=== PATIENT | female | born 1940 | race Caucasian/White ===

== ENCOUNTER 2017-10-07 14:09 | Emergency (ER) | payer MEDICARE, SELFPAY ==
[2017-10-07 14:12] VITALS: BP 208/102; BP 209/113; PULSE 85; PULSE 91; RESP 18; TEMP 36.8; O2SAT 100; O2SAT 98; BMI 20.1
--- NOTE | 2017-10-07 14:36 | EKG12_ITS ---
Test Reason : HTN/CP Blood Pressure : / mmHG Vent. Rate : 089 BPM Atrial Rate : 089 BPM P-R Int : 144 ms QRS Dur : 072 ms QT Int : 346 ms P-R-T Axes : 067 -25 035 degrees QTc Int : 420 ms Sinus rhythm with occasional Premature ventricular complexes Inferior infarct , age undetermined Abnormal ECG Confirmed by IRMA LION, JEREMY ([id number]), movie editor BRIAN CORTES ([id number]) on 10/08/2017 2:33:52 PM Referred By: MARTINEZ/JAMESON Confirmed By:JEREMY SOLIS MD
--- NOTE | 2017-10-07 14:36 | RAD_ITS ---
STUDY: X-RAY CHEST REASON FOR EXAM: Female, 76 years old. Chest pain. TECHNIQUE: Single AP portable view of the chest. COMPARISON: Comparison is made with prior study dated June 18, 2017. FINDINGS: EKG electrodes are seen. Hyperinflation. The lungs are clear. There is no demonstrated pleural abnormality. Normal size heart. Normal mediastinum and alba. Normal visualized pulmonary arteries. There is atherosclerotic tortuosity of the aortic arch and descending thoracic aorta. Normal visualized thoracic spine. Normal visualized ribs, clavicles, and shoulders. There is no demonstrated abnormality of the visualized soft tissue structures of the upper abdomen. RAD/Chest 1 View (Portable) IMPRESSION: Normal x-ray examination of the chest. Electronically Signed: Mor Hudson MD at 15:09 EST Tel [phone], Service support ,
[2017-10-07 14:46] LABS: Absolute Lymphocyte Count 3.71 X10^3/ul (0.83-4.51); Absolute Neutrophil Count 3.3 X10^3/uL (2.0-7.7); Basophil# 0.02 X10^3/uL; Basophil% 0.3 % (0-1); Eosinophil# 0.23 X10^3/uL; Hematocrit 40.4 % (37-47); Hemoglobin 12.8 g/dl (12.0-15.0); Lymphocyte # 3.71 X10^3/ul (4.0); Lymphocyte % 48.9 % (19-41); Mean Corp Hgb Conc 31.7 g/gl (32-36); Mean Corpuscular Hgb 29.4 pg (27.0-32.0); Mean Corpuscular Volume 92.7 fL (81-99); Mean Platelet Vol. 9.6 fl (6.2-12.0); Monocyte# 0.35 X10^3/uL; Monocyte% 4.6 % (0-10); Neutrophil # 3.26 X10^3/uL (2.7-7.7); Neutrophil % 42.9 % (47-70); Platelet Count 369 K/mm3 (150-450); RBC Distribution Width CV 13.3 % (11.6-14.6); RBC Distribution Width SD 45.2 fl (35.1-43.9); Red Blood Count 4.36 M/mm3 (4.2-5.4); White Blood Count 7.6 K/mm3 (4.4-11.0)
[2017-10-07 14:54] LABS: POSITIVE COUNT NO; POSITIVE DIFFERENTIAL NO; POSITIVE MORPHOLOGY NO
[2017-10-07] MEDS: Aspirin 81 MG TAB.CHEW 324 MG PO (15:00)
[2017-10-07 15:02] LABS: Anion Gap 6 (5-15); BUN 15 mg/dL (7-18); Chloride 104 mmol/L (98-107); Creatinine, Serum 0.79 mg/dL (0.55-1.02); EST Glomerular Filtration Rate 75 mL/min (>60); Est Glom Filt Rate - Afr Amer 91 mL/min (>60); Estimated Creatinine Clearance 41.56 ml/min; Glucose 92 mg/dL (74-106); Potassium 4.3 mmol/L (3.5-5.1); Sodium Level 139 mmol/L (136-145)
[2017-10-07] MEDS: Triamterene 37.5MG/Hctz 25MG Capsule 1 CAP PO (15:09)
[2017-10-07] MEDS: Isosorbide Mononitrate 30 MG Tablet PO (15:09)
[2017-10-07] MEDS: Metoprolol Tartrate 100 MG Tablet PO (15:10)
[2017-10-07 16:22] VITALS: BP 142/90; PULSE 73; RESP 18; O2SAT 97
[2017-10-07 17:36] VITALS: BP 128/79; PULSE 71; RESP 18; O2SAT 96
--- NOTE | 2017-10-07 18:36 | ED.VISSUMM ---
- ER Visit Summary Date of Service: 10/07/17 Chief Complaint: Hypertension, chest pain History of Present Illness: The patient is a 76 F presenting with hypertension. Patient states she was getting a consultation for colonoscopy today. It was noted that her blood pressure was high. She states she was rushing around this morning to get to her appointment and did not take her daily home medications. When asked if she had chest pain she did recall that she had 20 minutes of chest pain earlier this morning. She states it was not enough to take a nitro. She did not feel it was significant until she was told her blood pressure was high and she was questioned further about this. She has a history of stent placement June 2017. Her oyster buyer is Dr. Jordan and she has an appointment this Saturday. She has been chest pain-free throughout the rest of the day. She denies shortness of breath, nausea, vomiting, diaphoresis. Denies other complaints. Physical Examination: Vitals are stable. Blood pressure 209/113. Patient is afebrile. Alert no acute distress. HEENT exam is unremarkable. Neck is supple. Lungs are clear and equal bilaterally. Heart is regular rate and rhythm. Abdomen is soft nontender nondistended. Extremities are unremarkable. Skin is warm and dry. No focal neurologic deficit. Remainder of exam is unremarkable. Emergency Department Course and Treatment: EKG is sinus rate of 89 with no acute ischemic changes. Chest x-ray shows no acute process. Patient was given her home doses of her blood pressure medications. Repeat blood pressure is 145/90. Patient remains pain-free in the emergency department. Discussed with Dr. Jordan. We will obtain a delta troponin. As long as this is negative she will be discharged home to follow-up at her scheduled appointment on Saturday. She is advised return to ED for any worsening complaints. Disposition: Discharge home Impression: Hypertension, chest pain This note was generated with [employer] dictation software. It may contain incorrect words, spelling, and punctuation that were not noted in review of the chart prior to signing ED Disposition - Plan for ED Patient: Chief Complaint: Chest Pain Referrals: Milton Kang [Primary Care Provider] -
--- NOTE | 2017-10-07 18:41 | ED.DCSUM_ITS ---
- ER Visit Summary Date of Service: 10/07/17 Chief Complaint: Hypertension, chest pain History of Present Illness: The patient is a 76 F presenting with hypertension. Patient states she was getting a consultation for colonoscopy today. It was noted that her blood pressure was high. She states she was rushing around this morning to get to her appointment and did not take her daily home medications. When asked if she had chest pain she did recall that she had 20 minutes of chest pain earlier this morning. She states it was not enough to take a nitro. She did not feel it was significant until she was told her blood pressure was high and she was questioned further about this. She has a history of stent placement June 2017. Her rectification printer is Dr. Jordan and she has an appointment this Saturday. She has been chest pain-free throughout the rest of the day. She denies shortness of breath, nausea, vomiting, diaphoresis. Denies other complaints. Physical Examination: Vitals are stable. Blood pressure 209/113. Patient is afebrile. Alert no acute distress. HEENT exam is unremarkable. Neck is supple. Lungs are clear and equal bilaterally. Heart is regular rate and rhythm. Abdomen is soft nontender nondistended. Extremities are unremarkable. Skin is warm and dry. No focal neurologic deficit. Remainder of exam is unremarkable. Emergency Department Course and Treatment: EKG is sinus rate of 89 with no acute ischemic changes. Chest x-ray shows no acute process. Patient was given her home doses of her blood pressure medications. Repeat blood pressure is 145/ 90. Patient remains pain-free in the emergency department. Discussed with Dr. Jordan. We will obtain a delta troponin. As long as this is negative she will be discharged home to follow-up at her scheduled appointment on Saturday. She is advised return to ED for any worsening complaints. Disposition: Discharge home Impression: Hypertension, chest pain This note was generated with [employer] dictation software. It may contain incorrect words, spelling, and punctuation that were not noted in review of the chart prior to signing ED Disposition - Plan for ED Patient: Chief Complaint: Chest Pain Referrals: Milton Kang [Primary Care Provider] -
--- NOTE | 2017-10-07 18:41 | ED.DEP ---
ED Disposition - Plan for ED Patient: Chief Complaint: Chest Pain Instructions: ED Chest Pain Atypical Unkn Cause Referrals: Milton Kang [Primary Care Provider] - Skyler Jordan MD [STAFF PHYSICIAN] -
[2017-10-07 19:01] VITALS: BP 125/79; PULSE 61; RESP 16; O2SAT 97
== END 2017-10-07 19:02 | disposition home or self-care (01) ==
PROVIDERS: Emergency Provider Emergency Medicine; Family Provider Family Medicine; PCP Family Medicine
DX: I10 Essential (primary) hypertension (principal); R07.9 Chest pain, unspecified; Z95.5 Presence of coronary angioplasty implant and graft; E78.00 Pure hypercholesterolemia, unspecified; K21.9 Gastro-esophageal reflux disease without esophagitis; Z79.82 Long term (current) use of aspirin; Z79.01 Long term (current) use of anticoagulants; Z79.899 Other long term (current) drug therapy
CPT/HCPCS: 71045; 80048; 84484; 85025; 93005; 99285; A4216

== ENCOUNTER 2017-11-17 11:57 | Observation (INO) | payer MEDICARE, SELFPAY ==
[2017-11-17] VITALS (13 sets, daily range): BP systolic 110–188; BP diastolic 73–86; PULSE 69–116; RESP 16–30; TEMP 36.5–37.4; O2SAT 93–99; BMI 20.1
--- NOTE | 2017-11-17 12:06 | EKG12_ITS ---
Test Reason : SOB Blood Pressure : / mmHG Vent. Rate : 099 BPM Atrial Rate : 099 BPM P-R Int : 144 ms QRS Dur : 072 ms QT Int : 342 ms P-R-T Axes : 070 -32 057 degrees QTc Int : 438 ms Sinus rhythm with frequent Premature ventricular complexes Right atrial enlargement Left axis deviation Inferior infarct , cannot be excluded Abnormal ECG Confirmed by MAYKEL LION, JOCELYNE ([id number]), editor continuity and script BRIAN CORTES ([id number]) on 11/19/2017 2:51:03 PM Referred By: BLANK Confirmed By:JOCELYNE BRAR MD
--- NOTE | 2017-11-17 12:19 | ED.VISSUMM ---
- ER Visit Summary Date of Service: 11/17/17 Chief Complaint: [] Cough and low-grade fevers for a week, chest pain began yesterday intermittent History of Present Illness: The patient is a 77 F [] history of 3 cardiac stents hypertension she basically reports had a cough for over a week runny nose low-grade fevers, did not have flu vaccination, her has similar URI symptoms, in addition yesterday she developed chest pressure intermittently feels somewhat like her angina she is scheduled to see Dr. Jordan her customer program specialist next week she went to an urgent care center and was sent to the emergency department she is currently just complaining of the cough Physical Examination: [] Vitals are within normal range her head exam shows some rhinorrhea the neck is supple the lungs reveal rhonchi to bases the heart tones are unremarkable abdomen soft nontender upper lower extremities unremarkable she is awake moving all 4 extremities she is in no distress Test Results: [] Emergency Department Course and Treatment: [] EKG labs screening studies are all generally unremarkable including the flu screen that was negative given her symptoms her age history of CAD her complaints of chest pressure we spoke with the hospitalist service, they spoke with her customer program specialist spoke with the patient and the plan will be to admit for further management Treatment Plan: [] Disposition: [] Admit stable Impression: [] Chest pain history of cardiac stents, URI type illness This note was generated with [employer] dictation software. It may contain incorrect words, spelling, and punctuation that were not noted in review of the chart prior to signing ED Disposition - Plan for ED Patient: Chief Complaint: Shortness of Breath Referrals: Milton Kang [Primary Care Provider] -
--- NOTE | 2017-11-17 12:27 | RAD_ITS ---
STUDY: X-RAY CHEST REASON FOR EXAM: Female, 77 years old. Shortness of breath TECHNIQUE: Single AP portable view of the chest. COMPARISON: October 07, 2017 FINDINGS: The lungs are again hyperexpanded. There is new mild bibasilar atelectasis. There is no demonstrated pleural abnormality. Normal size heart. Normal mediastinum and alba. Normal visualized pulmonary arteries. Normal visualized aortic arch and descending thoracic aorta. Normal visualized thoracic spine. Normal visualized ribs, clavicles, and shoulders. There is no demonstrated abnormality of the visualized soft tissue structures of the upper abdomen. RAD/Chest 1 View IMPRESSION: There is new mild bibasilar atelectasis. Electronically Signed: Theresa Rangel MD at 12:59 EDT , Service support ,
[2017-11-17] MEDS: Ipratropium/Albuterol Sulfate 3 ML AMPUL.NEB INHALATION (12:36)
[2017-11-17 12:59] LABS: Anion Gap 6 (5-15); BUN 15 mg/dL (7-18); BUN/Creat Ratio 17.5 RATIO (10-20); Calcium,Total 8.9 mg/dL (8.5-10.1); Chloride 101 mmol/L (98-107); Creatinine, Serum 0.86 mg/dL (0.55-1.02); EST Glomerular Filtration Rate 69 mL/min (>60); Est Glom Filt Rate - Afr Amer 83 mL/min (>60); Estimated Creatinine Clearance 47.07 ml/min; Glucose 112 mg/dL (74-106); Sodium Level 135 mmol/L (136-145)
[2017-11-17 13:21] LABS: Bacteria 0 SEEN /hpf (None Seen); Color, Urine Yellow (Yellow); Glucose, Dipstick Normal (Normal); Ketone-Dipstick Negative (Negative); Leukocyte Esterase-Dipstick 25 /ul (Negative); Mucous, Urine 0 SEEN /hpf (<or=2+); Nitrite-Dipstick Negative (Negative); Occult Blood-Urine 250 /ul (Negative); Protein-Dipstick 500 mg/dl (Negative); Specific Gravity, Urine 1.015 (1.002-1.030); Squamous Epithelial Cells - UA 0 SEEN /hpf (5-10); Urine Bilirubin Dipstick Negative (Negative); Urine Clarity Clear (Clear); Urine Urobilinogen Normal (Normal)
[2017-11-17 13:30] LABS: Red Blood Cells-Urine 25-50 SEEN /hpf (0-5); White Blood Cells 0-5 SEEN /hpf (0-5)
[2017-11-17 13:32] LABS: Absolute Lymphocyte Count 1.84 X10^3/ul (0.83-4.51); BNP,B-Type NATRIURETIC PEPTIDE 12.2 pg/mL (0-100); Basophil# 0.02 X10^3/uL; Basophil% 0.3 % (0-1); Eosinophil# 0.03 X10^3/uL; Eosinophils% 0.5 % (0-5); Hematocrit 41.1 % (37-47); Hemoglobin 13.4 g/dl (12.0-15.0); Lymphocyte # 1.84 X10^3/ul (4.0); Lymphocyte % 29.7 % (19-41); Mean Corp Hgb Conc 32.6 g/gl (32-36); Mean Corpuscular Volume 91.9 fL (81-99); Mean Platelet Vol. 10.1 fl (6.2-12.0); Monocyte# 0.29 X10^3/uL; Monocyte% 4.7 % (0-10); Neutrophil % 64.6 % (47-70); POSITIVE COUNT NO; POSITIVE DIFFERENTIAL NO; POSITIVE MORPHOLOGY NO; Platelet Count 303 K/mm3 (150-450); RBC Distribution Width CV 13.2 % (11.6-14.6); RBC Distribution Width SD 43.7 fl (35.1-43.9); Red Blood Count 4.47 M/mm3 (4.2-5.4); White Blood Count 6.2 K/mm3 (4.4-11.0)
--- NOTE | 2017-11-17 15:06 | PCM.HP.STD ---
Problem List (1) Anemia Status: Chronic (2) CAD (coronary artery disease), [place] coronary artery Status: Chronic (3) Essential (primary) hypertension Status: Chronic (4) History of lumbar fusion Status: Chronic (5) Hyperlipemia, mixed Status: Chronic (6) jail use of drug Status: Chronic Comment: Antihyperlipidemic (7) Old myocardial infarction Status: Chronic (8) Other chest pain Status: Chronic (9) Palpitations Status: Chronic (10) Premature ventricular contractions Status: Chronic (11) S/P ORIF (open reduction internal fixation) fracture Status: Chronic (12) S/P coronary artery stent placement Status: Chronic Comment: RE to RCA in [place] 07/2016; RE to diagonal 1 and LAD in 06/2017; (13) SVT (supraventricular tachycardia) Status: Chronic (14) H/O tubal ligation Status: Resolved History of Present Illness Date of Admission: 11/17/17 Chief Complaint: Chest pain, shortness of breath, general malaise. The patient is a 77 year old F who presents to the emergency room with intermittent chest pain, shortness of breath, general malaise. Patient states she has had cough, low-grade fever, shortness of breath and generally feeling unwell for the past week. Over the past 2 days, she complains of intermittent chest pressure on the left side of her chest. She denies pain radiation. She denies associated symptoms of dizziness, diaphoresis. She states shortness of breath is not associated with the chest pain. Chest pain not associated with exertion. Patient states her has had similar upper respiratory symptoms over the past week. Patient follows with Dr. Jordan. She has a history of CAD status post PCI, most recent stents in June 2017. Her other past medical history includes hypertension, hyperlipidemia, anemia, GERD. 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) Antihyperlipidemic Palpitations (Chronic) Other chest pain (Chronic) Premature ventricular contractions (Chronic) SVT (supraventricular tachycardia) (Chronic) Old myocardial infarction (Chronic) Anemia (Chronic) Hyperlipemia, mixed (Chronic) Essential (primary) hypertension (Chronic) S/P coronary artery stent placement (Chronic) RE to RCA in [place] 07/2016; RE to diagonal 1 and LAD in 06/2017; CAD (coronary artery disease), [place] coronary artery (Chronic) Allergies amoxicillin Allergy (Verified 11/17/17 12:02) projectile vomiting diazepam [From Valium] Allergy (Verified 11/17/17 12:02) Unknown gabapentin Allergy (Verified 11/17/17 12:02) Unknown promethazine Allergy (Verified 11/17/17 12:02) Unknown zolpidem Allergy (Verified 11/17/17 12:02) Unknown morphine Adverse Reaction (Severe, Verified 11/17/17 12:02) Heart stopped Home Medications: Ambulatory Orders Medication Instructions Recorded Clopidogrel Bisulfate [Plavix] 75 mg PO DAILY 06/20/17 Metoprolol Succinate 100 mg PO DAILY 06/20/17 Pantoprazole Sodium [Protonix] 40 mg PO DAILY 06/20/17 Pramipexole Di-HCl [Mirapex] 2 tab PO QHS 06/20/17 Triamterene/Hydrochlorothiazid 1 ea PO DAILY 06/20/17 [Triamterene-Hctz 37.5-25 mg Cp] Oxycodone [Oxyfast] 10 mg PO TID 06/21/17 amlodipine 10 mg tablet 10 mg PO QDAY 07/22/17 isosorbide mononitrate ER 30 mg 30 mg PO QDAY tab 10/11/17 tablet,extended release 24 hr Surgical History: - - back surgery lumbar fusion 2012, ORIF left hip 11/12/2016, varicose vein surgery 11/2010, hx of tubal ligation, hx of hysterectomy. Psychiatric History: No pertinent psych hx DIRECTOR OF RELIGIOUS ACTIVITIES History: No pertinent DIRECTOR OF RELIGIOUS ACTIVITIES history Smoking Status: Never smoker Alcohol: None Drugs: None - *Family History Maternal History Items: Heart Disease Paternal History Items: Heart Disease Review of Systems Constitutional: Reports: Fever, Malaise, Fatigue HEENT: Denies: Head Aches, Sinus Congestion, Sinus Drainage Cardiovascular: Reports: Chest Pressure. Denies: Edema, Light Headedness, Palpitations, Syncope Respiratory: Reports: Cough, Shortness of Breath. Denies: Sputum production, Wheezing Gastrointestinal: Denies: Abdominal Pain, Nausea, Vomiting Genitourinary: Denies: Dysuria Musculoskeletal: Denies: Joint Pain, Joint Tenderness Skin: Denies: Rash, Wounds Neurological: Denies: Numbness, Tingling, Focal weakness Psychiatric: Denies: Anxiety, Depression, Homicidal Ideations, Suicidal Ideations Hematologic/ Lymphatic: Denies: Easy Bruising, Easy Bleeding VTE Information - Inpt Only VTE Present on Admission: No VTE Mechan Device Prophylaxis: None VTE Pharm Prophylaxis ordered?: Yes - Physical Exam General: Alert, Oriented x3, Cooperative, No apparent distress HEENT: Atraumatic, PERRLA, EOMI, Normocephalic Neck: Supple, No JVD, Negative Carotid Bruits Lungs: Clear to auscultation, Diminished Cardiovascular: Regular Rhythm, Normal S1, Normal S2, No murmurs, Tachycardic Abdomen: Bowel Sounds Present, Soft, Non Tender, Non-Distended Extremities: No clubbing, No cyanosis, No edema, Capillary Refill Less than 3 Seconds Skin: No rashes, No breakdown Musculoskeletal: No Tenderness to Palpation of Joints or Extremities Neurological: Cranial nerves II-XII grossly intact, Neuro grossly intact Psych/Mental Status: Normal Affect, Appropriate Vital Signs Temp Pulse Resp BP Pulse Ox 99.3 F H 103 H 17 150/74 H 96 11/17/17 13:14 11/17/17 13:14 11/17/17 13:14 11/17/17 13:14 11/17/17 13:14 Oxygen Delivery Method Room Air Weight: 54.431 kg Body Mass Index (BMI) 20.0 Microbiology Past 72 Hours 11/17/17 12:25 Influenza Types A,B Direct FA (RIGOBERTO) - Final Mucosa - Nasopharyngeal Laboratory Tests Past 24 Hrs 11/17/17 11/17/17 11/17/17 12:25 12:55 12:55 WBC 6.2 RBC 4.47 Hgb 13.4 Hct 41.1 MCV 91.9 MCH 30.0 MCHC 32.6 RDW 13.2 RDW Differential 43.7 Plt Count 303 MPV 10.1 Immature Gran % (Auto) 0.200 Neut % (Auto) 64.6 Lymph % (Auto) 29.7 [place] % (Auto) 4.7 Eos % (Auto) 0.5 Baso % (Auto) 0.3 Absolute Neuts (auto) 4.0 Absolute Lymphs (auto) 1.84 Total Counted Not Reportable Sodium 135 L Potassium 4.0 Chloride 101 Carbon Dioxide 28.0 Anion Gap 6 BUN 15 Creatinine 0.86 Estim Creat Clear Calc 47.07 Est GFR (MDRD) Af Amer 83 Est GFR (MDRD) Non-Af 69 BUN/Creatinine Ratio 17.5 Glucose 112 H Calcium 8.9 Troponin I < 0.02 B-Natriuretic Peptide 12.2 Urine Color Urine Clarity Urine pH Ur Specific [place] Urine Protein Urine Glucose (UA) Urine Ketones Urine Occult Blood Urine Nitrite Urine Bilirubin Urine Urobilinogen Ur Leukocyte Esterase Urine RBC Urine WBC Ur Squamous Epith Cells Urine Bacteria Urine Mucus 11/17/17 13:10 WBC RBC Hgb Hct MCV MCH MCHC RDW RDW Differential Plt Count MPV Immature Gran % (Auto) Neut % (Auto) Lymph % (Auto) [place] % (Auto) Eos % (Auto) Baso % (Auto) Absolute Neuts (auto) Absolute Lymphs (auto) Total Counted Sodium Potassium Chloride Carbon Dioxide Anion Gap BUN Creatinine Estim Creat Clear Calc Est GFR (MDRD) Af Amer Est GFR (MDRD) Non-Af BUN/Creatinine Ratio Glucose Calcium Troponin I B-Natriuretic Peptide Urine Color Yellow Urine Clarity Clear Urine pH 5.0 Ur Specific [place] 1.015 Urine Protein 500 H Urine Glucose (UA) Normal Urine Ketones Negative Urine Occult Blood 250 H Urine Nitrite Negative Urine Bilirubin Negative Urine Urobilinogen Normal Ur Leukocyte Esterase 25 H Urine RBC 25-50 SEEN Urine WBC 0-5 SEEN Ur Squamous Epith Cells 0 SEEN Urine Bacteria 0 SEEN Urine Mucus 0 SEEN Assessment/Plan 1. Chest pressure-echocardiogram from September 2016 showed an EF of 60-65%. Patient recently had office visit with cardiology 10/11/2017 with complaints of intermittent chest pain and shortness of breath. BNP 12. Troponin negative. EKG in emergency room sinus rhythm with PVCs. No evidence of ischemia. Chest x-ray on admission shows mild bibasilar atelectasis. Trend enzymes. Patient was discussed with Dr. Jordan and plan is to undergo stress test tomorrow morning. 2. Cough, fever, shortness of breath-negative for influenza. Suspected viral syndrome. Patient has been had similar upper respiratory symptoms over the past week. Obtain respiratory panel. Albuterol aerosol as needed for shortness of breath. Tylenol as needed for fever. 3. CAD-history of RCA stent in July 2016 with additional stent placement June 2017 to proximal diagonal 1 and mid LAD. Continue Plavix, metoprolol, Imdur. 4. Hypertension-elevated on admission. Continue home regimen of amlodipine, Imdur, metoprolol, triamterene/HCTZ. Continue to monitor. 5. Hyperlipidemia-not on statin. Obtain fasting lipid panel. 6. GERD-continue PPI. DVT prophylaxis-Lovenox SC This patient was seen by NOAH Montes under the supervision of Dr. Isaacs.
--- NOTE | 2017-11-17 15:25 | HP.PCM_ITS ---
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 use of drug Status: Chronic Comment: Antihyperlipidemic (7) Old myocardial infarction Status: Chronic (8) Other chest pain Status: Chronic (9) Palpitations Status: Chronic (10) Premature ventricular contractions Status: Chronic (11) S/P ORIF (open reduction internal fixation) fracture Status: Chronic (12) S/P coronary artery stent placement Status: Chronic Comment: RE to RCA in [place] 07/2016; RE to diagonal 1 and LAD in 06/2017; (13) SVT (supraventricular tachycardia) Status: Chronic (14) H/O tubal ligation Status: Resolved History of Present Illness Date of Admission: 11/17/17 Chief Complaint: Chest pain, shortness of breath, general malaise. The patient is a 77 year old F who presents to the emergency room with intermittent chest pain, shortness of breath, general malaise. Patient states she has had cough, low-grade fever, shortness of breath and generally feeling unwell for the past week. Over the past 2 days, she complains of intermittent chest pressure on the left side of her chest. She denies pain radiation. She denies associated symptoms of dizziness, diaphoresis. She states shortness of breath is not associated with the chest pain. Chest pain not associated with exertion. Patient states her has had similar upper respiratory symptoms over the past week. Patient follows with Dr. Jordan. She has a history of CAD status post PCI, most recent stents in June 2017. Her other past medical history includes hypertension, hyperlipidemia, anemia, GERD. 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) Antihyperlipidemic Palpitations (Chronic) Other chest pain (Chronic) Premature ventricular contractions (Chronic) SVT (supraventricular tachycardia) (Chronic) Old myocardial infarction (Chronic) Anemia (Chronic) Hyperlipemia, mixed (Chronic) Essential (primary) hypertension (Chronic) S/P coronary artery stent placement (Chronic) RE to RCA in [place] 07/2016; RE to diagonal 1 and LAD in 06/2017; CAD (coronary artery disease), [place] coronary artery (Chronic) Allergies amoxicillin Allergy (Verified 11/17/17 12:02) projectile vomiting diazepam [From Valium] Allergy (Verified 11/17/17 12:02) Unknown gabapentin Allergy (Verified 11/17/17 12:02) Unknown promethazine Allergy (Verified 11/17/17 12:02) Unknown zolpidem Allergy (Verified 11/17/17 12:02) Unknown morphine Adverse Reaction (Severe, Verified 11/17/17 12:02) Heart stopped Home Medications: Ambulatory Orders Medication Instructions Recorded Clopidogrel Bisulfate [Plavix] 75 mg PO DAILY 06/20/17 Metoprolol Succinate 100 mg PO DAILY 06/20/17 Pantoprazole Sodium [Protonix] 40 mg PO DAILY 06/20/17 Pramipexole Di-HCl [Mirapex] 2 tab PO QHS 06/20/17 Triamterene/Hydrochlorothiazid 1 ea PO DAILY 06/20/17 [Triamterene-Hctz 37.5-25 mg Cp] Oxycodone [Oxyfast] 10 mg PO TID 06/21/17 amlodipine 10 mg tablet 10 mg PO QDAY 07/22/17 isosorbide mononitrate ER 30 mg 30 mg PO QDAY tab 10/11/17 tablet,extended release 24 hr Surgical History: - - back surgery lumbar fusion 2012, ORIF left hip 11/12/2016 , varicose vein surgery 11/2010, hx of tubal ligation, hx of hysterectomy. 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 Denies: Edema, Light Headedness, Palpitations, Syncope Respiratory: Reports: Cough, Shortness of Breath. Denies: Sputum production, Wheezing Gastrointestinal: Denies: Abdominal Pain, Nausea, Vomiting Genitourinary: Denies: Dysuria Musculoskeletal: Denies: Joint Pain, Joint Tenderness Skin: Denies: Rash, Wounds Neurological: Denies: Numbness, Tingling, Focal weakness Psychiatric: Denies: Anxiety, Depression, Homicidal Ideations, Suicidal Ideations Hematologic/ Lymphatic: Denies: Easy Bruising, Easy Bleeding VTE Information - Inpt Only VTE Present on Admission: No VTE Mechan Device Prophylaxis: None VTE Pharm Prophylaxis ordered?: Yes - Physical Exam General: Alert, Oriented x3, Cooperative, No apparent distress HEENT: Atraumatic, PERRLA, EOMI, Normocephalic Neck: Supple, No JVD, Negative Carotid Bruits Lungs: Clear to auscultation, Diminished Cardiovascular: Regular Rhythm, Normal S1, Normal S2, No murmurs, Tachycardic Abdomen: Bowel Sounds Present, Soft, Non Tender, Non-Distended Extremities: No clubbing, No cyanosis, No edema, Capillary Refill Less than 3 Seconds Skin: No rashes, No breakdown Musculoskeletal: No Tenderness to Palpation of Joints or Extremities Neurological: Cranial nerves II-XII grossly intact, Neuro grossly intact Psych/Mental Status: Normal Affect, Appropriate Vital Signs Temp Pulse Resp BP Pulse Ox 99.3 F H 103 H 17 150/74 H 96 11/17/17 13:14 11/17/17 13:14 11/17/17 13:14 11/17/17 13:14 11/17/17 13:14 Oxygen Delivery Method Room Air Weight: 54.431 kg Body Mass Index (BMI) 20.0 Microbiology Past 72 Hours 11/17/17 12:25 Influenza Types A,B Direct FA (RIGOBERTO) - Final Mucosa - Nasopharyngeal Laboratory Tests Past 24 Hrs 11/17/17 11/17/17 11/17/17 12:25 12:55 12:55 WBC 6.2 RBC 4.47 Hgb 13.4 Hct 41.1 MCV 91.9 MCH 30.0 MCHC 32.6 RDW 13.2 RDW Differential 43.7 Plt Count 303 MPV 10.1 Immature Gran % (Auto) 0.200 Neut % (Auto) 64.6 Lymph % (Auto) 29.7 [place] % (Auto) 4.7 Eos % (Auto) 0.5 Baso % (Auto) 0.3 Absolute Neuts (auto) 4.0 Absolute Lymphs (auto) 1.84 Total Counted Not Reportable Sodium 135 L Potassium 4.0 Chloride 101 Carbon Dioxide 28.0 Anion Gap 6 BUN 15 Creatinine 0.86 Estim Creat Clear Calc 47.07 Est GFR (MDRD) Af Amer 83 Est GFR (MDRD) Non-Af 69 BUN/Creatinine Ratio 17.5 Glucose 112 H Calcium 8.9 Troponin I < 0.02 B-Natriuretic Peptide 12.2 Urine Color Urine Clarity Urine pH Ur Specific [place] Urine Protein Urine Glucose (UA) Urine Ketones Urine Occult Blood Urine Nitrite Urine Bilirubin Urine Urobilinogen Ur Leukocyte Esterase Urine RBC Urine WBC Ur Squamous Epith Cells Urine Bacteria Urine Mucus 11/17/17 13:10 WBC RBC Hgb Hct MCV MCH MCHC RDW RDW Differential Plt Count MPV Immature Gran % (Auto) Neut % (Auto) Lymph % (Auto) [place] % (Auto) Eos % (Auto) Baso % (Auto) Absolute Neuts (auto) Absolute Lymphs (auto) Total Counted Sodium Potassium Chloride Carbon Dioxide Anion Gap BUN Creatinine Estim Creat Clear Calc Est GFR (MDRD) Af Amer Est GFR (MDRD) Non-Af BUN/Creatinine Ratio Glucose Calcium Troponin I B-Natriuretic Peptide Urine Color Yellow Urine Clarity Clear Urine pH 5.0 Ur Specific [place] 1.015 Urine Protein 500 H Urine Glucose (UA) Normal Urine Ketones Negative Urine Occult Blood 250 H Urine Nitrite Negative Urine Bilirubin Negative Urine Urobilinogen Normal Ur Leukocyte Esterase 25 H Urine RBC 25-50 SEEN Urine WBC 0-5 SEEN Ur Squamous Epith Cells 0 SEEN Urine Bacteria 0 SEEN Urine Mucus 0 SEEN Assessment/Plan 1. Chest pressure-echocardiogram from September 2016 showed an EF of 60-65%. Patient recently had office visit with cardiology 10/11/2017 with complaints of intermittent chest pain and shortness of breath. BNP 12. Troponin negative. EKG in emergency room sinus rhythm with PVCs. No evidence of ischemia. Chest x -ray on admission shows mild bibasilar atelectasis. Trend enzymes. Patient was discussed with Dr. Jordan and plan is to undergo stress test tomorrow morning. 2. Cough, fever, shortness of breath-negative for influenza. Suspected viral syndrome. Patient has been had similar upper respiratory symptoms over the past week. Obtain respiratory panel. Albuterol aerosol as needed for shortness of breath. Tylenol as needed for fever. 3. CAD-history of RCA stent in July 2016 with additional stent placement June 2017 to proximal diagonal 1 and mid LAD. Continue Plavix, metoprolol, Imdur. 4. Hypertension-elevated on admission. Continue home regimen of amlodipine, Imdur, metoprolol, triamterene/HCTZ. Continue to monitor. 5. Hyperlipidemia-not on statin. Obtain fasting lipid panel. 6. GERD-continue PPI. DVT prophylaxis-Lovenox SC This patient was seen by NOAH Montes under the supervision of Dr. Isaacs.
[2017-11-17] MEDS: Ondansetron 4 MG/2 ML Vial IV ×2 (15:54→22:43)
[2017-11-17] MEDS: Pramipexole Di-HCl 0.125 MG Tablet 0.25 MG PO (17:47)
[2017-11-17] MEDS: Acetaminophen 325 MG Tablet 650 MG PO (20:18)
[2017-11-17] MEDS: oxyCODONE 5 MG Tablet 10 MG PO (22:44)
[2017-11-17] MEDS: 0.9% NaCl Peripheral Flush Adult/Peds IV (22:44)
[2017-11-18] VITALS (9 sets, daily range): BP systolic 94–164; BP diastolic 41–94; PULSE 85–107; RESP 16–20; TEMP 36.7–37.2; O2SAT 91–98
[2017-11-18 03:36] LABS: BUN 14 mg/dL (7-18); Estimated Creatinine Clearance 51.03 ml/min; Glucose 96 mg/dL (74-106)
[2017-11-18 03:37] LABS: Anion Gap 10 (5-15); BUN/Creat Ratio 17.5 RATIO (10-20); Calcium,Total 8.8 mg/dL (8.5-10.1); Chloride 102 mmol/L (98-107); EST Glomerular Filtration Rate 74 mL/min (>60); Est Glom Filt Rate - Afr Amer 90 mL/min (>60); Sodium Level 136 mmol/L (136-145)
[2017-11-18 03:54] LABS: Absolute Lymphocyte Count 2.37 X10^3/ul (0.83-4.51); Absolute Neutrophil Count 3.2 X10^3/uL (2.0-7.7); Basophil# 0.03 X10^3/uL; Basophil% 0.5 % (0-1); Eosinophil# 0.13 X10^3/uL; Eosinophils% 2.1 % (0-5); Hematocrit 40.5 % (37-47); Hemoglobin 13.1 g/dl (12.0-15.0); Lymphocyte # 2.37 X10^3/ul (4.0); Lymphocyte % 37.9 % (19-41); Mean Corp Hgb Conc 32.3 g/gl (32-36); Mean Corpuscular Hgb 29.8 pg (27.0-32.0); Mean Corpuscular Volume 92.3 fL (81-99); Mean Platelet Vol. 9.8 fl (6.2-12.0); Neutrophil # 3.22 X10^3/uL (2.7-7.7); Neutrophil % 51.3 % (47-70); Platelet Count 301 K/mm3 (150-450); RBC Distribution Width CV 13.2 % (11.6-14.6); RBC Distribution Width SD 43.7 fl (35.1-43.9); Red Blood Count 4.39 M/mm3 (4.2-5.4); White Blood Count 6.3 K/mm3 (4.4-11.0)
[2017-11-18 03:56] LABS: Partial Thromboplast Time 35.4 Seconds (24.1-36.2); Prothrombin Time (Protime)PT. 12.9 SECONDS (11.7-14.9)
[2017-11-18 04:27] LABS: POSITIVE COUNT NO; POSITIVE DIFFERENTIAL NO; POSITIVE MORPHOLOGY NO
--- NOTE | 2017-11-18 05:55 | EKG12_ITS ---
Test Reason : AM Blood Pressure : / mmHG Vent. Rate : 096 BPM Atrial Rate : 096 BPM P-R Int : 118 ms QRS Dur : 078 ms QT Int : 352 ms P-R-T Axes : 033 -37 011 degrees QTc Int : 444 ms Sinus rhythm with occasional Premature ventricular complexes Left axis deviation Inferior infarct , age undetermined Abnormal ECG When compared with ECG of 17-NOV-2017 12:32, MANUAL COMPARISON REQUIRED, DATA IS UNCONFIRMED Confirmed by DOM CHAVEZ ([id number]), metropolitan editor BRIAN CORTES ([id number]) on 11/21/2017 3:04:57 PM Referred By: BIANKA Confirmed By:DOM CHAVEZ
[2017-11-18] MEDS: Clopidogrel Bisulfate 75 MG Tablet PO (06:13)
--- NOTE | 2017-11-18 07:00 | NURSING ---
This RN reviewed charting completed by clinical nursing coordinator Dangelo Obrien and agrees with charting.
[2017-11-18] MEDS: oxyCODONE 5 MG Tablet 10 MG PO (09:15)
[2017-11-18] MEDS: Ondansetron 4 MG/2 ML Vial IV (09:15)
[2017-11-18] MEDS: 0.9% NaCl Peripheral Flush Adult/Peds IV (09:17)
[2017-11-18] MEDS: Pantoprazole Sodium 40 MG Tablet PO (09:20)
[2017-11-18] MEDS: Triamterene 37.5MG/Hctz 25MG Capsule 1 CAP PO (09:20)
[2017-11-18] MEDS: Isosorbide Mononitrate 30 MG Tablet PO (09:20)
[2017-11-18] MEDS: Metoprolol(XL)Succ 100 MG Tablet PO (09:21)
[2017-11-18] MEDS: amLODIPine 10 MG Tablet PO (09:21)
[2017-11-18] MEDS: Sodium Chloride 0.65% 1 SPRAY SPRAY.BTL 2 SPRAY NASAL (09:22)
--- NOTE | 2017-11-18 09:45 | STRESSREP ---
Stress Test Report Pharmacologic myocardial perfusion stress test. 77-year-old lady with a history of chest pain. Medications Norvasc Plavix Imdur Toprol Dyazide. Stress protocol: Resting EKG demonstrates sinus tachycardia with a rate of 130 bpm resting blood pressure is 180/90 mmHg. 0.4 mg of regadenoson was infused per usual protocol followed by rapid intravenous saline flush injection continuous EKG monitoring was performed the patient maintained sinus rhythm throughout the recording. Frequent premature ventricular complexes were noted which were manually isolated. At rest there were no ST or T-wave changes noted to suggest abnormal flow reserve at peak infusion no ST or T-wave changes were noted suggest abnormal flow reserve. No clinical angina was noted. Myocardial perfusion protocol. The patient was injected with 11.1 mCi technetium 99m sestamibi at rest. 0.4 mg regadenoson was infused per usual protocol peak infusion 32.8 mCi of technetium 99m sestamibi was injected stress images were obtained stress and rest images were reconstructed and compared in the short axis vertical long and horizontal long axis. Gated images were also obtained pre- Perfusion SPECT analysis: Review of the stress images demonstrate normal uptake of tracer noted in all areas of the myocardium. The resting images similarly demonstrate normal uptake of tracer noted in all areas of the myocardium. No areas of reversibility are noted suggest ischemia no previous infarct is noted. Gated SPECT analysis: The gated ejection fraction is noted to be 87%. And hypocontractile. Conclusion: Normal pharmacologic myocardial perfusion stress test. Preserved ejection fraction.
--- NOTE | 2017-11-18 11:15 | PCM.DC ---
You will use the following diet at home:: Cardiac Discharge Activity: Return to Normal Activity Call your doctor if you observe: Shortness of breath, Dizziness, Fainting spells, Chest pain, Increased palpitations (irregular heartbeat) Allergies/Adverse Reactions: Allergies amoxicillin Allergy (Verified 11/17/17 12:02) projectile vomiting diazepam [From Valium] Allergy (Verified 11/17/17 12:02) Unknown gabapentin Allergy (Verified 11/17/17 12:02) Unknown promethazine Allergy (Verified 11/17/17 12:02) Unknown zolpidem Allergy (Verified 11/17/17 12:02) Unknown morphine Adverse Reaction (Severe, Verified 11/17/17 12:02) Heart stopped Medications to take at Discharge Clopidogrel Bisulfate [Plavix] 75 mg PO DAILY 06/20/17 Metoprolol Succinate 100 mg PO DAILY 06/20/17 Pantoprazole Sodium [Protonix] 40 mg PO DAILY 06/20/17 Pramipexole Di-HCl [Mirapex] 2 tab PO QHS 06/20/17 Triamterene/Hydrochlorothiazid [Triamterene-Hctz 37.5-25 mg Cp] 1 ea PO DAILY 06/20/17 Oxycodone [Oxyfast] 10 mg PO TID 06/21/17 amlodipine 10 mg tablet 10 mg PO QDAY 07/22/17 isosorbide mononitrate ER 30 mg tablet,extended release 24 hr 30 mg PO QDAY tab 10/11/17 Hydrocodone/Chlorphen P-Stirex [Tussionex Pennkinetic Susp] 5 ml PO Q12H PRN PRN #1 ronni.er.12h 11/18/17 Ondansetron HCl [Zofran] 4 mg PO Q6H PRN PRN #20 tab 11/18/17 levoFLOXacin tablet [Levaquin tablet] 500 mg PO DAILY #7 tab 11/18/17 The following prescriptions were given: Ondansetron HCl [Zofran] 4 mg PO Q6H PRN PRN #20 tab PRN Reason: Nausea Hydrocodone/Chlorphen P-Stirex [Tussionex Penn[place]etic Susp] 5 ml PO Q12H PRN PRN #1 ronni.er.12h PRN Reason: Cough levoFLOXacin tablet [Levaquin tablet] 500 mg PO DAILY #7 tab Primary Care Physician: Milton Kang [Primary Care Provider] - Please follow up with your Primary Care Physician in: 1 Week Please Follow Up With: Skyler Jordan MD When: 2-4 weeks, following resolve of upper respiratory symptoms Proposed Discharge Date: 11/18/17
--- NOTE | 2017-11-18 11:19 | PCM.DC.SUM ---
<Yenny Santoyo - Last Filed: 11/18/17 11:28> Discharge Date and Diagnosis Date of Admission: 11/17/17 Date of Discharge: 11/18/17 - Primary Discharge Diagnosis 1. Chest pain/pressure-ACS ruled out. 2. 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) Antihyperlipidemic Palpitations (Chronic) Other chest pain (Chronic) Premature ventricular contractions (Chronic) SVT (supraventricular tachycardia) (Chronic) Old myocardial infarction (Chronic) Anemia (Chronic) Hyperlipemia, mixed (Chronic) Essential (primary) hypertension (Chronic) S/P coronary artery stent placement (Chronic) RE to RCA in [place] 07/2016; RE to diagonal 1 and LAD in 06/2017; CAD (coronary artery disease), [place] coronary artery (Chronic) Hospital Course and Treatment Imaging Results: Diagnostic Data Chest X-Ray 11/17/17 12:27 IMPRESSION: There is new mild bibasilar atelectasis. Electronically Signed: Theresa Rangel MD at 12:59 EDT , Service support , Operations: None Procedures: Stress test Summary of Care Provided: Patient is a 77-year-old female admitted 11/17/17 due to chest pain, shortness of breath, general malaise. Patient follows with Dr. Jordan. She has a history of CAD status post PCI, most recent stents in June 2017. Her other past medical history includes hypertension, hyperlipidemia, anemia, GERD. 1. Chest pressure-ACS ruled out. Echocardiogram from September 2016 showed an EF of 60-65%. Patient recently had office visit with cardiology 10/11/2017 with complaints of intermittent chest pain and shortness of breath. BNP 12. Troponin negative. EKG in emergency room sinus rhythm with PVCs. No evidence of ischemia. Chest x-ray on admission shows mild bibasilar atelectasis. Patient underwent nuclear stress test which was negative for ischemia. She will continue outpatient follow-up with Dr. Nikki. 2. Acute bronchitis-cough, fever, shortness of breath-negative for influenza. Patient will be discharged on Levaquin 500 mg for 7 days as well as as needed cough medicine. 3. CAD-history of RCA stent in July 2016 with additional stent placement June 2017 to proximal diagonal 1 and mid LAD. Continue Plavix, metoprolol, Imdur. 4. Hypertension-Continue home regimen of amlodipine, Imdur, metoprolol, triamterene/HCTZ. Continue monitoring by PCP. 5. Hyperlipidemia-not on statin. Recommend fasting lipid panel by primary care physician. 6. GERD-continue PPI. General: Alert, Oriented x3, Cooperative, No apparent distress HEENT: Atraumatic, PERRLA, EOMI, Normocephalic Neck: Supple, No JVD, Negative Carotid Bruits Lungs: Clear to auscultation, Diminished Cardiovascular: Regular Rhythm, regular rate, normal S1, Normal S2, No murmurs Abdomen: Bowel Sounds Present, Soft, Non Tender, Non-Distended Extremities: No clubbing, No cyanosis, No edema, Capillary Refill Less than 3 Seconds Skin: No rashes, No breakdown Musculoskeletal: No Tenderness to Palpation of Joints or Extremities Neurological: Cranial nerves II-XII grossly intact, Neuro grossly intact Psych/Mental Status: Normal Affect, Appropriate Patient seen and examined prior to discharge. Physical assessment as above. Patient stable for discharge home with the follow-up recommendations as noted above. This patient was seen by NOAH Montes under the supervision of Dr. Ochoa. Discharge Diet: Low fat/ Low Cholesterol Discharge Activity: Return to Normal Activity Call your doctor if you observe: Shortness of breath, Dizziness, Fainting spells, Chest pain, Increased palpitations (irregular heartbeat) Home Medications: Medications to take at Discharge Clopidogrel Bisulfate [Plavix] 75 mg PO DAILY 06/20/17 Metoprolol Succinate 100 mg PO DAILY 06/20/17 Pantoprazole Sodium [Protonix] 40 mg PO DAILY 06/20/17 Pramipexole Di-HCl [Mirapex] 2 tab PO QHS 06/20/17 Triamterene/Hydrochlorothiazid [Triamterene-Hctz 37.5-25 mg Cp] 1 ea PO DAILY 06/20/17 Oxycodone [Oxyfast] 10 mg PO TID 06/21/17 amlodipine 10 mg tablet 10 mg PO QDAY 07/22/17 isosorbide mononitrate ER 30 mg tablet,extended release 24 hr 30 mg PO QDAY tab 10/11/17 Hydrocodone/Chlorphen P-Stirex [Tussionex Penn[place]etic Susp] 5 ml PO Q12H PRN PRN #1 ronni.er.12h 11/18/17 Ondansetron HCl [Zofran] 4 mg PO Q6H PRN PRN #20 tab 11/18/17 levoFLOXacin tablet [Levaquin tablet] 500 mg PO DAILY #7 tab 11/18/17 Following Prescrptions Were Given to Patient: Ondansetron HCl [Zofran] 4 mg PO Q6H PRN PRN #20 tab PRN Reason: Nausea Hydrocodone/Chlorphen P-Stirex [Tussionex Pennkinetic Susp] 5 ml PO Q12H PRN PRN #1 ronni.er.12h PRN Reason: Cough levoFLOXacin tablet [Levaquin tablet] 500 mg PO DAILY #7 tab Primary Care Physician: Milton Kang [Primary Care Provider] - Please follow up with your Primary Care Physician in: 1 Week Please Follow Up With: Skyler Jordan MD When: 2-4 weeks, following resolve of upper respiratory symptoms Disposition: Home Minutes spent on discharge:: 35 Patient Condition:: Stable Medical Necessity - Tobacco Use Smoking Status: Never smoker Meaningful Use Info Meaningful Use Diagnoses (Choose all that apply): None applicable <Guille Ochoa E - Last Filed: 11/18/17 15:27> Discharge Date and Diagnosis - Secondary Discharge Diagnosis Chronic Problems (Last Updated 09/17/17 @ 10:03 by Lucia Joppa) History of lumbar fusion (Chronic ~12/2012) S/P ORIF (open reduction internal fixation) fracture (Chronic ~11/12/16) 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) Antihyperlipidemic Palpitations (Chronic) Other chest pain (Chronic) Premature ventricular contractions (Chronic) SVT (supraventricular tachycardia) (Chronic) Old myocardial infarction (Chronic) Anemia (Chronic) Hyperlipemia, mixed (Chronic) Essential (primary) hypertension (Chronic) S/P coronary artery stent placement (Chronic) RE to RCA in [place] 07/2016; RE to diagonal 1 and LAD in 06/2017; CAD (coronary artery disease), [place] coronary artery (Chronic) Hospital Course and Treatment Summary of Care Provided: Hospitalist note: Discharge summary above reviewed as well as physical examination and I agree with above discharge plan. Patient was admitted for chest pain for evaluation. She did have symptoms suggestive of acute bronchitis. Cardiac workup including EKG, cardiac enzymes and nuclear stress test was unremarkable, ACS ruled out. Her chest pain was mainly related to coughing, has been having dry cough for the last 4 days with sinus congestion and subjective fever. Chest x-ray showed no acute findings. Routine blood work was unremarkable. Nuclear stress test revealed no evidence of stress-induced myocardial ischemia. Her symptoms attributed to acute bronchitis. Patient discharged home in a stable medical condition, discharged on Levaquin for acute bronchitis, antitussive, continued on her home medication including Plavix, metoprolol, isosorbide mononitrate, recommended follow-up with PCP in 1 week. Minutes spent on discharge:: 25 Code Visit OBSV E&M: 16249 Observation care discharge
--- NOTE | 2017-11-18 11:28 | DS.PCM_ITS ---
<Yenny Santoyo - Last Filed: 11/18/17 11:28> Discharge Date and Diagnosis Date of Admission: 11/17/17 Date of Discharge: 11/18/17 - Primary Discharge Diagnosis 1. Chest pain/pressure-ACS ruled out. 2. 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) Antihyperlipidemic Palpitations (Chronic) Other chest pain (Chronic) Premature ventricular contractions (Chronic) SVT (supraventricular tachycardia) (Chronic) Old myocardial infarction (Chronic) Anemia (Chronic) Hyperlipemia, mixed (Chronic) Essential (primary) hypertension (Chronic) S/P coronary artery stent placement (Chronic) RE to RCA in [place] 07/2016; RE to diagonal 1 and LAD in 06/2017; CAD (coronary artery disease), [place]ne[place] coronary artery (Chronic) Hospital Course and Treatment Imaging Results: Diagnostic Data Chest X-Ray 11/17/17 12:27 IMPRESSION: There is new mild bibasilar atelectasis. Electronically Signed: Theresa Rangel MD at 12:59 EDT , Service support , Operations: None Procedures: Stress test Summary of Care Provided: Patient is a 77-year-old female admitted 11/17/17 due to chest pain, shortness of breath, general malaise. Patient follows with Dr. Jordan. She has a history of CAD status post PCI, most recent stents in June 2017. Her other past medical history includes hypertension, hyperlipidemia, anemia, GERD. 1. Chest pressure-ACS ruled out. Echocardiogram from September 2016 showed an EF of 60-65%. Patient recently had office visit with cardiology 10/11/2017 with complaints of intermittent chest pain and shortness of breath. BNP 12. Troponin negative. EKG in emergency room sinus rhythm with PVCs. No evidence of ischemia. Chest x-ray on admission shows mild bibasilar atelectasis. Patient underwent nuclear stress test which was negative for ischemia. She will continue outpatient follow-up with Dr. Nikki. 2. Acute bronchitis-cough, fever, shortness of breath-negative for influenza. Patient will be discharged on Levaquin 500 mg for 7 days as well as as needed cough medicine. 3. CAD-history of RCA stent in July 2016 with additional stent placement June 2017 to proximal diagonal 1 and mid LAD. Continue Plavix, metoprolol, Imdur. 4. Hypertension-Continue home regimen of amlodipine, Imdur, metoprolol, triamterene/HCTZ. Continue monitoring by PCP. 5. Hyperlipidemia-not on statin. Recommend fasting lipid panel by primary care physician. 6. GERD-continue PPI. General: Alert, Oriented x3, Cooperative, No apparent distress HEENT: Atraumatic, PERRLA, EOMI, Normocephalic Neck: Supple, No JVD, Negative Carotid Bruits Lungs: Clear to auscultation, Diminished Cardiovascular: Regular Rhythm, regular rate, normal S1, Normal S2, No murmurs Abdomen: Bowel Sounds Present, Soft, Non Tender, Non-Distended Extremities: No clubbing, No cyanosis, No edema, Capillary Refill Less than 3 Seconds Skin: No rashes, No breakdown Musculoskeletal: No Tenderness to Palpation of Joints or Extremities Neurological: Cranial nerves II-XII grossly intact, Neuro grossly intact Psych/Mental Status: Normal Affect, Appropriate Patient seen and examined prior to discharge. Physical assessment as above. Patient stable for discharge home with the follow-up recommendations as noted above. This patient was seen by NOAH Montes under the supervision of Dr. Ochoa. Discharge Diet: Low fat/ Low Cholesterol Discharge Activity: Return to Normal Activity Call your doctor if you observe: Shortness of breath, Dizziness, Fainting spells , Chest pain, Increased palpitations (irregular heartbeat) Home Medications: Medications to take at Discharge Clopidogrel Bisulfate [Plavix] 75 mg PO DAILY 06/20/17 Metoprolol Succinate 100 mg PO DAILY 06/20/17 Pantoprazole Sodium [Protonix] 40 mg PO DAILY 06/20/17 Pramipexole Di-HCl [Mirapex] 2 tab PO QHS 06/20/17 Triamterene/Hydrochlorothiazid [Triamterene-Hctz 37.5-25 mg Cp] 1 ea PO DAILY Oxycodone [Oxyfast] 10 mg PO TID 06/21/17 amlodipine 10 mg tablet 10 mg PO QDAY 07/22/17 isosorbide mononitrate ER 30 mg tablet,extended release 24 hr 30 mg PO QDAY tab 10/11/17 Hydrocodone/Chlorphen P-Stirex [Tussionex Pennkinetic Susp] 5 ml PO Q12H PRN PRN #1 ronni.er.12h 11/18/17 Ondansetron HCl [Zofran] 4 mg PO Q6H PRN PRN #20 tab 11/18/17 levoFLOXacin tablet [Levaquin tablet] 500 mg PO DAILY #7 tab 11/18/17 Following Prescrptions Were Given to Patient: Ondansetron HCl [Zofran] 4 mg PO Q6H PRN PRN #20 tab PRN Reason: Nausea Hydrocodone/Chlorphen P-Stirex [Tussionex Pennkinetic Susp] 5 ml PO Q12H PRN PRN #1 ronni.er.12h PRN Reason: Cough levoFLOXacin tablet [Levaquin tablet] 500 mg PO DAILY #7 tab Primary Care Physician: Milton Kang [Primary Care Provider] - Please follow up with your Primary Care Physician in: 1 Week Please Follow Up With: Skyler Jordan MD When: 2-4 weeks, following resolve of upper respiratory symptoms Disposition: Home Minutes spent on discharge:: 35 Patient Condition:: Stable Medical Necessity - Tobacco Use Smoking Status: Never smoker Meaningful Use Info Meaningful Use Diagnoses (Choose all that apply): None applicable <Guille Ochoa E - Last Filed: 11/18/17 15:27> Discharge Date and Diagnosis - Secondary Discharge Diagnosis Chronic Problems (Last Updated 09/17/17 @ 10:03 by Lucia Belfry) History of lumbar fusion (Chronic ~12/2012) S/P ORIF (open reduction internal fixation) fracture (Chronic ~11/12/16) 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) Antihyperlipidemic Palpitations (Chronic) Other chest pain (Chronic) Premature ventricular contractions (Chronic) SVT (supraventricular tachycardia) (Chronic) Old myocardial infarction (Chronic) Anemia (Chronic) Hyperlipemia, mixed (Chronic) Essential (primary) hypertension (Chronic) S/P coronary artery stent placement (Chronic) RE to RCA in [place] 07/2016; RE to diagonal 1 and LAD in 06/2017; CAD (coronary artery disease), [place] coronary artery (Chronic) Hospital Course and Treatment Summary of Care Provided: Hospitalist note: Discharge summary above reviewed as well as physical examination and I agree with above discharge plan. Patient was admitted for chest pain for evaluation. She did have symptoms suggestive of acute bronchitis. Cardiac workup including EKG, cardiac enzymes and nuclear stress test was unremarkable, ACS ruled out. Her chest pain was mainly related to coughing, has been having dry cough for the last 4 days with sinus congestion and subjective fever. Chest x- ray showed no acute findings. Routine blood work was unremarkable. Nuclear stress test revealed no evidence of stress-induced myocardial ischemia. Her symptoms attributed to acute bronchitis. Patient discharged home in a stable medical condition, discharged on Levaquin for acute bronchitis, antitussive, continued on her home medication including Plavix, metoprolol, isosorbide mononitrate, recommended follow-up with PCP in 1 week. Minutes spent on discharge:: 25 Code Visit OBSV E&M: 49611 Observation care discharge
== END 2017-11-18 11:16 | disposition home or self-care (01) ==
LOC: ED 15:16 → PCU 15:46
PROVIDERS: Admitting Provider Internal Medicine; Emergency Provider Emergency Medicine; Family Provider Family Medicine; PCP Family Medicine; Visit Provider Hospitalist
DX: R07.89 Other chest pain (principal); J20.9 Acute bronchitis, unspecified; I25.2 Old myocardial infarction; I25.10 Atherosclerotic heart disease of native coronary artery without angina pectoris; E78.2 Mixed hyperlipidemia; Z79.899 Other long term (current) drug therapy; Z79.02 Long term (current) use of antithrombotics/antiplatelets; Z98.1 Arthrodesis status; Z95.5 Presence of coronary angioplasty implant and graft; K21.9 Gastro-esophageal reflux disease without esophagitis; I10 Essential (primary) hypertension; R06.02 Shortness of breath
CPT/HCPCS: 36415; 71045; 78452; 80048; 81001; 83880; 84484; 85025; 85610; 85730; 87804; 93005; 93017; 94640; 96374; 96376; 99218; 99285; A9500; A4216; G0378; J2405; J2785

== ENCOUNTER → 2018-04-25 11:26 | Outpatient (CLI) | payer MEDICARE, SELFPAY ==
[2018-04-25 12:37] LABS: Absolute Lymphocyte Count 3.03 X10^3/ul (0.83-4.51); Absolute Neutrophil Count 1.8 X10^3/uL (2.0-7.7); Basophil# 0.02 X10^3/uL; Basophil% 0.4 % (0-1); Eosinophil# 0.21 X10^3/uL; Eosinophils% 3.9 % (0-5); Hematocrit 39.3 % (37-47); Hemoglobin 12.6 g/dl (12.0-15.0); Lymphocyte # 3.03 X10^3/ul (4.0); Lymphocyte % 56.2 % (19-41); Mean Corp Hgb Conc 32.1 g/gl (32-36); Mean Corpuscular Hgb 29.9 pg (27.0-32.0); Mean Corpuscular Volume 93.1 fL (81-99); Mean Platelet Vol. 9.7 fl (6.2-12.0); Monocyte# 0.33 X10^3/uL; Monocyte% 6.1 % (0-10); Neutrophil # 1.79 X10^3/uL (2.7-7.7); Neutrophil % 33.2 % (47-70); POSITIVE COUNT NO; POSITIVE DIFFERENTIAL NO; POSITIVE MORPHOLOGY NO; Platelet Count 343 K/mm3 (150-450); RBC Distribution Width CV 12.4 % (11.6-14.6); RBC Distribution Width SD 41.6 fl (35.1-43.9); Red Blood Count 4.22 M/mm3 (4.2-5.4); White Blood Count 5.4 K/mm3 (4.4-11.0)
[2018-04-25 12:55] LABS: Anion Gap 8 (5-15); BUN 18 mg/dL (7-18); BUN/Creat Ratio 23.6 RATIO (10-20); Calcium,Total 9.2 mg/dL (8.5-10.1); Chloride 104 mmol/L (98-107); Creatinine, Serum 0.76 mg/dL (0.55-1.02); EST Glomerular Filtration Rate 78 mL/min (>60); Est Glom Filt Rate - Afr Amer 94 mL/min (>60); Glucose 90 mg/dL (74-106); Potassium 3.9 mmol/L (3.5-5.1); Sodium Level 137 mmol/L (136-145)
== END ==
PROVIDERS: Family Provider Family Medicine; PCP Family Medicine; Visit Provider Internal Medicine Cardiovascular Disease
DX: I25.10 Atherosclerotic heart disease of native coronary artery without angina pectoris (principal); I25.2 Old myocardial infarction
CPT/HCPCS: 36415; 80048; 85025

== ENCOUNTER 2018-05-05 08:57 | Day surgery (SDC) | payer MEDICARE, SELFPAY ==
[2018-05-02 12:11] VITALS: BMI 22.3
[2018-05-05] VITALS (20 sets, daily range): BP systolic 120–187; BP diastolic 39–92; PULSE 75–86; RESP 11–18; TEMP 36.9–37.2; O2SAT 94–99; BMI 22.8
--- NOTE | 2018-05-05 10:34 | CL.D_ITS ---
Patient Name: TREE HAMMONDS Study Date: 05/05/2018 Performing: Skyler Jordan MD Ht: 64.96 inches 165 cm : 1940 Wt: 134.48 lbs 61 kg Age: 77 Gender: female BSA: 1.67 PROCEDURE(S) PERFORMED QV93-AHP/COR/LV CLINICAL PROFILE AND INDICATIONS Indications: Worsening Angina Heart Failure: None Stress/Imaging Stress Test w/SPECT MPI: Yes Result: NegativeStress Test with SPECT MPI: Negative CAD Presentations: Stable angina. CONCLUSIONS Previously placed stent in the right coronary artery with severe in-stent stenosis and dampening of p ressure on engagement. Previously placed stent in the LAD and diagonal vessel are patent with ostial diagonal stenosis. Moderate disease is noted in the circumflex and ramus intermedius system. RECOMMENDATIONS Referred for immediate PCI DESCRIPTION OF PROCEDURE The patient arrived to the procedure lab. The risks and benefits of the procedure as well as a full d escription of our services here and current unavailability of surgical backup were fully explained to the patient and/or their significant other prior to the catheterization. The Timeout was completed, verifying the correct patient and procedure. The patient's procedural site was prepped and draped in the usual fashion. Local anesthetic was given subcutaneously to right groin region with Lidocaine 2%. Using a modified Seldinger technique, arterial access was obtained via the right femoral artery, a 5 Fr sheath was inserted. Left Coronary Artery selective angiography was performed in multiple views u sing a 5 Fr. JL4 catheter. Right Coronary Artery selective angiography was then performed in multiple views using a 5 Fr. 3DRC (Gurwinder) catheter. Left Ventriculography was performed in BOUDREAUX projection using a 5 Fr. Pigtail catheter. LV to AO pullback pressures were then recorded. CORONARY ANGIOGRAPHY DOMINANCE: Right Dominant LEFT HEART ASSESSMENT Left Ventricular Ejection Fraction: by LV Gram 60 % Normal Left Ventricular systolic function LEFT MAIN: 30 % Stenosis LEFT ANTERIOR DECENDING ARTERY: PROX LAD: Previously placed stent is patent DIAGONAL 1: Ostial - 60 % Stenosis, Proximal - Previously placed stent is patent CIRCUMFLEX ARTERY: Mild luminal irregularities RAMUS: Moderate luminal irregularities up to 50% RIGHT CORONARY ARTERY: Mild luminal irregularities PROX RCA: Previously placed stent has an instent 85 % restenosis COMPLICATIONS PROCEDURE MEDICATIONS Versed 1 mg IV Fentanyl 50 mcg IV Versed 1 mg IV Oxygen: 2 L/min via nasal cannula Labetalol 10 mg 05/05/2018 10:09:00 Heparin 6000 unit(s) IV 05/05/2018 10:27:37 Nitro 200 mcg IC 05/05/2018 10:29:58 IV Bolus: .9 NaCl ml total 05/05/2018 10:28:16 SUMMARY OF HEMODYNAMIC DATA Time AIR REST ECG 09:31:56 AO 223/100 (156) SA 10:08:41 AO 186/99 (141) 10:09:56 LV 194/12, 23 10:17:24 LV 188/12, 23 10:17:30 LV 182/-1, 26 10:18:11 LV 186/-1, 27 10:18:17 LVp 183/-1, 24 10:18:21 AOp 184/76 (123) 10:18:26 Signed By Skyler Jordan MD On 05/05/2018 10:33:31 Skyler Jordan MD
--- NOTE | 2018-05-05 11:10 | CL.I_ITS ---
Patient Name: TREE HAMMONDS Study Date: 05/05/2018 Performing: Alexandro Corey MD Ht: 64.96 inches 165 cm : 1940 Wt: 134.48 lbs 61 kg Age: 77 Gender: female BSA: 1.67 PROCEDURE(S) PERFORMED [id number] W OR WO PTCA, SINGLE CORONARY ARTERY CLINICAL PROFILE AND CO-MORBIDITIES Indications: Worsening Angina, New Onset Angina <= 2 months, Stable Known CAD Heart Failure: None Stress/Imaging Stress Test w/SPECT MPI: Yes Result: Negative Stress Test with SPECT MPI: Negative Stress/Image Study Performed: No Angina Classification Anginal Classification w/in 2 Weeks: CCS III CAD Presentations: Stable angina. Unstable angina. Comorbidities/Risk Factors: Hypertension Dyslipidemia Prior PCI CONCLUSIONS Successful PTCA/RE of proximal RCA ISR with a 2.0 x 10 Angiosculpt, followed by a 2.5 x 32 Promus Sy nergy, post dilated throughout with a 3.0 x 12 NC Balloon; 75%-->0%, no dissection. RECOMMENDATIONS Highly recommend quitting all tobacco products Follow up with primary strategy lead Risk factor modification ASA Indefinitley Plavix for at least 12 months Routine post interventional care Refer for Outpatient Cardiac Rehab Manual sheath removal per protocol Follow up with Dr. Jordan Risk factor modification Successful Mynx closure device. DESCRIPTION OF PROCEDURE The patient arrived to the procedure lab. The risks and benefits of the procedure as well as a full d escription of our services here and current unavailability of surgical backup were fully explained to the patient and/or their significant other prior to the catheterization. The Timeout was completed, verifying the correct patient and procedure. The patient's procedural site was prepped and draped in the usual fashion. Local anesthetic was given subcutaneously to right groin region with Lidocaine 2% Using a modified Seldinger technique,arterial access was obtained via the right femoral artery, a 5Fr sheath was inserted. Left Coronary Artery selective angiography was performed in multiple views usin g a 5 Fr. JL4 catheter. Right Coronary Artery selective angiography was then performed in multiple vi ews using a 5 Fr. 3DRC (Gurwinder) catheter. Left Ventriculography was performed in BOUDREAUX projection usi ng a 5 Fr. Pigtail catheter. LV to AO pullback pressures were then recorded.The images were reviewed and options discussed. A decision was then made to proceed with an Intervention, IVUS or other adjunc t procedure. Arterial sheath was exchanged for a 6 Fr Sheath. HS1 SH Guide catheter was inserted and engaged into the RCA. [employer] [place] Guide wire was advanced to the RCA. Angiosculpt 2.0 x 10 Balloon catheter was inserted. Balloon catheter was advanced across lesion in the right coronary, proximal. PTCA balloon i nflated at 10 atms for 16 secs. PTCA balloon inflated at 6 atms for 10 secs. Angiogram performed post balloon dilatation. Synergy 2.5 x 32 Drug Eluting stent was inserted. Drug Eluting stent was advance d across the lesion in the right coronary, proximal. Angiogram performed pre stent deployment. NC Dawn rge 3.0 x 12 Balloon catheter was inserted. Balloon catheter was advanced across lesion in the right coronary, proximal. Angiogram performed post stent deployment. The arterial sheath was pulled and a Mynx closure device was deployed for hemostasis INTERVENTION INFORMATION LESION SITE: RCA (Proximal) Lesion Complexity: High/C, lesion at bifurcation: No, thrombus present: No, lesion length: 32 mm, cul prit lesion: Yes, In-stent restenosis: Yes Pre Stenosis: 75 % Pre intervention JONATHAN flow: 3 PROCEDURE: Drug Eluting Stent with pre and post dilatation, Cutting Balloon Angioplasty Post Stenosis: 0 % Post intervention JONATHAN flow: 3 Lesion Devices: Bonteratronic 6 Fr HSI SH 100cm Guide Catheter Banks .014 [employer] [place] Straight 190cm Foody Angiosculpt RX 2.0x10 Scoring Balloon Servando Sci Synergy MR RE 2.50x32 Servando Sci NC EMERGE MR 3.00x12 BALLOON COMPLICATIONS No Complications PROCEDURE MEDICATIONS Versed 1 mg IV Fentanyl 50 mcg IV Versed 1 mg IV Oxygen: 2 L/min via nasal cannula Labetalol 10 mg 05/05/2018 10:09:00 Heparin 6000 unit(s) IV 05/05/2018 10:27:37 Labetalol 10 mg 05/05/2018 10:58:53 Nitro 200 mcg IC 05/05/2018 10:29:58 Nitro glycerin 25mg / 250ml D5W @ 5 mcg/min IV started 05/05/2018 10:34:17 Nitro 200 mcg IC 05/05/2018 10:37:26 Nitro glycerin 25mg / 250ml D5W @ 10 mcg/min (increased rate) 05/05/2018 10:46:25 Nitro 400 mcg IC 05/05/2018 10:48:08 Nitro glycerin 25mg / 250ml D5W @ 15 mcg/min (increased rate) 05/05/2018 10:57:41 IV Bolus: .9 NaCl 500ml total 05/05/2018 10:28:16 IV Fluids: .9 NaCl decreased to 150 ml/hr 05/05/2018 10:55:09 SUMMARY OF HEMODYNAMIC DATA Time AIR REST ECG 09:31:56 AO 223/100 (156) SA 10:08:41 AO 186/99 (141) 10:09:56 LV 194/12, 23 10:17:24 LV 188/12, 23 10:17:30 LV 182/-1, 26 10:18:11 LV 186/-1, 27 10:18:17 LVp 183/-1, 24 10:18:21 AOp 184/76 (123) 10:18:26 RM AIR REST 10:33:30 Signed By Alexandro Corey MD On 05/05/2018 11:10:32 Alexandro Corey MD
[2018-05-05 11:25] LABS: ACT Activated Clotting Time 213 sec (74-137)
--- NOTE | 2018-05-05 11:58 | EKG12_ITS ---
Test Reason : POST PCI Blood Pressure : / mmHG Vent. Rate : 074 BPM Atrial Rate : 074 BPM P-R Int : 152 ms QRS Dur : 078 ms QT Int : 416 ms P-R-T Axes : 073 -36 006 degrees QTc Int : 461 ms Normal sinus rhythm Left axis deviation Inferior infarct (cited on or before 07-OCT-2017) Abnormal ECG When compared with ECG of 18-NOV-2017 05:18, Premature ventricular complexes are no longer Present Confirmed by JEREMY JORDAN MD ([id number]), editor continuity and script BRIAN CORTES ([id number]) on 05/12/2018 3:56:12 PM Referred By: Jeremy Jordan Confirmed By:JEREMY JORDAN MD
[2018-05-05] MEDS: 0.9% Normal Saline 1,000 ML 150 ML IV (12:22)
[2018-05-05] MEDS: oxyCODONE 5 MG Tablet 10 MG PO ×3 (12:59→21:51)
[2018-05-05] MEDS: Acetaminophen 325 MG Tablet 650 MG PO ×2 (12:59→19:11)
--- NOTE | 2018-05-05 15:30 | CRPH1.INSTRU ---
General Education CAD and cardiac anatomy and function:: Patient communicates acknowledgment Explanation of diagnoses and procedures:: Patient communicates acknowledgment Sign/Symptoms of [place]:: Patient communicates acknowledgment Antiplatelet therapy: Patient communicates acknowledgment Proper use of NTG-SL: Not instructed Emergency procedures and activation of EMS: Patient communicates acknowledgment Compliance of all prescribed medications: Patient communicates acknowledgment Smoking Patient Nicotine/Smoking Risk Factors Are:: Non-smoker Nicotine/Smoking Response Code:: Patient communicates acknowledgment Dyslipidemia Dyslipidemia Response Code:: Patient communicates acknowledgment Overweight/Obesity Patient Overweight/Obesity Risk Factors Are:: BMI Normal [18-25 & < 65 years old] Overweight/Obesity:: Patient communicates acknowledgment Hypertension Hypertension:: Patient communicates acknowledgment Heart Disease Patient Heart Disease Risk Factors Are:: Family history of heart disease < 65 years old Recommendations Include:: Educated family members of their risk Heart Disease Response Code:: Patient communicates acknowledgment Diabetes Diabetes:: Patient communicates acknowledgment Metabolic Syndrome Metabolic Syndrome Response Code:: Patient communicates acknowledgment Sedentary Recommendations Include:: Aerobic exercise 5-7 times/week for 20-30 minutes continuously, Benefits of regular exercise, Discussed home walking program, Monitored Outpatient Cardiac Rehab Sedentary Response Code:: Patient communicates acknowledgment Stress Stress Response Code:: Patient communicates acknowledgment
--- NOTE | 2018-05-05 15:31 | CRPHASE1 ---
Patient Data/Charges Gut Sorter:: Skyler Jordan Surgeon:: Alexandro Corey Phase II:: Yes Phase II Referral:: [facility] Risk Factors/Lifestyle Hx Dyslipidemia: Yes Height: 1.65 m Weight:: 62.142 kg BMI: 22.8 Family History: Family History (Last Reviewed 04/25/18 @ 10:53 by Skyler Jordan MD) Father CAD (coronary artery disease) Hypertension CVA (cerebral vascular accident) CHF (congestive heart failure) Mother CAD (coronary artery disease) Hypertension Lung cancer Phase I Education Given On:: [place], Nutrition, Antiplatelet medication, CHF, Smoking cessation, Diabetes - Type I, Diabetes - Type II Knowledge of Condition:: Yes Medical/Surgical History [place]:: Yes Dyslipidemia:: Yes PTCA:: Yes Discharge/Home/Social Eval Discharge Disposition: Home Marital Status:
--- NOTE | 2018-05-05 15:34 | CRPHASE1_ITS ---
Patient Data/Charges Care Support Representative:: Skyler Jordan Surgeon:: Alexandro Corey Phase II:: Yes Phase II Referral:: [facility] Risk Factors/Lifestyle Hx Dyslipidemia: Yes Height: 1.65 m Weight:: 62.142 kg BMI: 22.8 Family History: Family History (Last Reviewed 04/25/18 @ 10:53 by Skyler Jordan MD) Father CAD (coronary artery disease) Hypertension CVA (cerebral vascular accident) CHF (congestive heart failure) Mother CAD (coronary artery disease) Hypertension Lung cancer Phase I Education Given On:: [place], Nutrition, Antiplatelet medication, CHF, Smoking cessation, Diabetes - Type I, Diabetes - Type II Knowledge of Condition:: Yes Medical/Surgical History [place]:: Yes Dyslipidemia:: Yes PTCA:: Yes Discharge/Home/Social Eval Discharge Disposition: Home Marital Status:
[2018-05-05] MEDS: Pramipexole Di-HCl 0.125 MG Tablet 0.375 MG PO (17:17)
[2018-05-05] MEDS: Lisinopril 20 MG Tablet PO (17:52)
[2018-05-05] MEDS: Atorvastatin Calcium 20 MG Tablet PO (21:51)
[2018-05-06] VITALS (15 sets, daily range): BP systolic 107–158; BP diastolic 37–80; PULSE 71–85; RESP 11–26; TEMP 36.8–37.1; O2SAT 95–97
[2018-05-06] MEDS: Acetaminophen 325 MG Tablet 650 MG PO ×2 (01:13→09:12)
[2018-05-06] MEDS: oxyCODONE 5 MG Tablet 10 MG PO ×2 (03:07→09:12)
[2018-05-06 05:16] LABS: Mean Corp Hgb Conc 32.3 g/gl (32-36); Mean Corpuscular Hgb 30.5 pg (27.0-32.0); Mean Corpuscular Volume 94.5 fL (81-99); Mean Platelet Vol. 9.1 fl (6.2-12.0); Platelet Count 272 K/mm3 (150-450); RBC Distribution Width SD 43.2 fl (35.1-43.9); Red Blood Count 3.28 M/mm3 (4.2-5.4); White Blood Count 6.1 K/mm3 (4.4-11.0)
[2018-05-06 05:24] LABS: Scan Indicated on CBC? Y/N NO
[2018-05-06 05:29] LABS: Anion Gap 7 (5-15); BUN 15 mg/dL (7-18); BUN/Creat Ratio 21.4 RATIO (10-20); Calcium,Total 8.2 mg/dL (8.5-10.1); Chloride 106 mmol/L (98-107); EST Glomerular Filtration Rate 86 mL/min (>60); Est Glom Filt Rate - Afr Amer 104 mL/min (>60); Estimated Creatinine Clearance 42.39 ml/min; Glucose 91 mg/dL (74-106); Potassium 4.2 mmol/L (3.5-5.1); Sodium Level 142 mmol/L (136-145)
[2018-05-06] MEDS: Clopidogrel Bisulfate 75 MG Tablet PO (07:49)
[2018-05-06] MEDS: amLODIPine 10 MG Tablet PO (07:49)
[2018-05-06] MEDS: Pantoprazole Sodium 40 MG Tablet PO (07:49)
[2018-05-06] MEDS: Aspirin 81 MG TAB.CHEW PO (07:50)
[2018-05-06] MEDS: Isosorbide Mononitrate 60 MG Tablet PO (07:50)
[2018-05-06] MEDS: Triamterene 37.5MG/Hctz 25MG Capsule 1 CAP PO (07:50)
[2018-05-06] MEDS: Metoprolol(XL)Succ 100 MG Tablet PO (07:51)
--- NOTE | 2018-05-06 08:16 | PN.CARD_ITS ---
Subjectve: Patient seen and evaluated. Appears to be doing quite well. Had uneventful night. Objective: Vital Signs Temp Pulse Resp BP Pulse Ox 98.5 F 78 16 136/54 H 97 05/06/18 08:00 05/06/18 08:00 05/06/18 08:00 05/06/18 08:00 05/06/18 08:00 Oxygen Delivery Method Room Air Weight: 137 lb Body Mass Index (BMI) 22.8 Intake and Output for Last 24 Hours 05/04/18 05/05/18 05/06/18 23:59 23:59 23:59 Intake Total 1540 / 1540 300 / 300 Output Total 1200 / 1200 400 / 400 Balance 340 / 340 -100 / -100 General: Awake, Alert, Oriented x 3 HEENT: PERRL, EOMI, Sclera Non Icteric Neck: Supple, Good ROM, No Lymph Node Enlargement Lungs: Clear to auscultation Cardiovascular: Regular Rhythm, Normal S1, Normal S2, No Murmurs, No Rubs, No Gallops Vascular: No Carotid Bruits, Normal Femoral Pulses, Normal Radial Pulses, Normal Dorsalis Pedal Pulse, Normal Posterior Tibial Pulses Abdomen: Bowel Sounds Present, Soft, Non Tender, No HSM, No Organomegaly Extremities: No Cyanosis, No Clubbing, No edema Neurological: No Focal Motor or Sensory Deficit 05/06/18 05:05: WBC 6.1, RBC 3.28 L, Hgb 10.0 L, Hct 31.0 L, MCV 94.5, MCH 30.5, MCHC 32.3, RDW 13.0, RDW Differential 43.2, Plt Count 272, MPV 9.1 05/06/18 05:05: Sodium 142, Potassium 4.2, Chloride 106, Carbon Dioxide 29.0, Anion Gap 7, BUN 15, Creatinine 0.70, Est GFR (MDRD) Af Amer 104, Est GFR (MDRD) Non-Af 86, BUN/Creatinine Ratio 21.4 H, Glucose 91, Calcium 8.2 L Rhythm: EKG: ECHO: Stress Test: Cardiac Cath: PCI: CT Surgery: Holter monitor: EPS: PPM: CXR: Chest CT Scan: Medical Necessity - Tobacco Use Smoking Status: Never smoker Tobacco Use: Non-smoker Assessment/Plan 1. Coronary artery disease * Patient is status post angioplasty and stenting of a restenosed proximal right coronary artery stent which was placed in July 2016. Patient tolerated the procedure well. The previous stents placed in the LAD and diagonal vessel were noted to be patent. Ejection fraction was noted to be normal. This morning her hemoglobin remained stable and EKG demonstrates no changes and the groin is free of any hematoma. The patient will be discharged for outpatient follow-up. 2. Hypertension Patient has significant hypertension which has been treated with medication. I would suggest the addition of lisinopril 20 mg a day to her current regimen. Her blood pressure this morning appears to be normal. She will be discharged today for outpatient follow-up.
--- NOTE | 2018-05-06 08:23 | PCM.DC.CCA ---
Discharge Diet: Low fat/ Low Cholesterol Discharge Activity: Return to Normal Activity Call your doctor if your incision/area has: Increased Pain/ Swelling, Increased Redness, Foul Smelling Discharge, Swelling at the incision site Call your doctor if you observe: Fever of 101 or Higher Additional Dressing/Incision Instructions:: Keep the dressing (bandage) on until the next morning. You may then shower, but do not take a tub bath for 5 days after your test. It is normal to have some tenderness and discomfort at the puncture site. Sometimes bruising also occurs. However, if pain, numbness, or coldness occurs below the puncture site (in your leg, toes, arms or fingers) call your doctor at once. You may have a small, marble sized knot at the puncture site. This is normal. Do not rub it. It will go away in 4-6 weeks. Bleeding can occur from the area where the puncture was done. Blood may spurt or drip from the site. If blood spurts, apply pressure right away to stop bleeding and call 911. Although rare, bleeding into the tissue (hematoma) can also occur. If this happens, a large, firm area goose egg under the skin will appear. If any of these occur, lie down as flat as you can and have someone apply firm pressure to the cath site with a gauze pad or a clean washcloth for 10-15 minutes. Call 911 or go to the Emergency Department. Allergies/Adverse Reactions: Allergies amoxicillin Allergy (Verified 04/25/18 10:24) projectile vomiting diazepam [From Valium] Allergy (Verified 04/25/18 10:24) Unknown gabapentin Allergy (Verified 04/25/18 10:24) Unknown promethazine Allergy (Verified 04/25/18 10:24) Unknown zolpidem Allergy (Verified 04/25/18 10:24) Unknown morphine Adverse Reaction (Severe, Verified 04/25/18 10:24) Heart stopped Medications to take at Discharge Metoprolol Succinate 100 mg PO DAILY 06/20/17 Pantoprazole Sodium [Protonix] 40 mg PO DAILY 06/20/17 Triamterene/Hydrochlorothiazid [Triamterene-Hctz 37.5-25 mg Cp] 1 ea PO DAILY 06/20/17 Oxycodone [Oxyfast] 10 mg PO TID 06/21/17 amlodipine 10 mg tablet 10 mg PO QDAY 07/22/17 atorvastatin 20 mg tablet 20 mg PO DAILY #60 tab 04/25/18 clopidogrel 75 mg tablet 75 mg PO DAILY #30 tab 04/25/18 pramipexole 0.125 mg tablet 0.375 mg PO QHS tab 04/25/18 Aspirin [Aspirin, Baby] 81 mg PO DAILY@0800 05/05/18 Lisinopril [Zestril] 20 mg PO DAILY #90 tablet 05/06/18 The following prescriptions were given: Lisinopril [Zestril] 20 mg PO DAILY #90 tablet Orders to be completed after discharge: Phase II, Outpatient Cardiac Rehab Location: None Selected Primary Care Physician: Milton Kang MD [Primary Care Provider] - Test Results: Test results from this visit will be discussed in further detail at your follow-up appointment, if applicable. When: dr parker office Cardiac Rehabilitation Info Cardiac Rehabilitation Program Information: Cardiac Rehabilitation is important for patients like you who are recovering from a heart problem. Cardiac rehabilitation programs are recognized as integral to the continued care of the patient with coronary heart disease. The cardiac rehabilitation program is designed to optimize a patient's physical, psychological, and social functioning. Health wound care technician work in cardiac rehabilitation programs and assist you with getting the treatments you need to get stronger and healthier - like exercise, healthy eating habits, and medications. Cardiac rehabilitation has been show to help people with heart problems live longer and have better life enjoyment than people who do not go to cardiac rehabilitation. Please contact the Cardiac Rehabilitation Program at [facility] at in two weeks if you have not heard from them.
--- NOTE | 2018-05-06 10:00 | EKG12_ITS ---
Test Reason : AM EKG Blood Pressure : / mmHG Vent. Rate : 076 BPM Atrial Rate : 076 BPM P-R Int : 160 ms QRS Dur : 062 ms QT Int : 390 ms P-R-T Axes : 077 -22 007 degrees QTc Int : 438 ms Normal sinus rhythm Normal ECG When compared with ECG of 05-MAY-2018 11:39, MANUAL COMPARISON REQUIRED, DATA IS UNCONFIRMED Confirmed by IRMA LION, JEREMY ([id number]), electronic news gathering editor BRIAN CORTES ([id number]) on 05/12/2018 3:56:26 PM Referred By: Jeremy Jordan Confirmed By:JEREMY JORDAN MD
== END 2018-05-06 11:45 | disposition home or self-care (01) ==
LOC: CLSP 08:59 → ICU 10:54
PROVIDERS: Internal Medicine Cardiovascular Disease; Family Provider Family Medicine; PCP Family Medicine; Referring Provider Internal Medicine Cardiovascular Disease; Visit Provider Internal Medicine Cardiovascular Disease
DX: I25.10 Atherosclerotic heart disease of native coronary artery without angina pectoris (principal); I47.1 Supraventricular tachycardia; I10 Essential (primary) hypertension; E78.5 Hyperlipidemia, unspecified; Z95.5 Presence of coronary angioplasty implant and graft; Z79.82 Long term (current) use of aspirin; Z79.02 Long term (current) use of antithrombotics/antiplatelets; Z79.899 Other long term (current) drug therapy; Z86.73 Personal history of transient ischemic attack (TIA), and cerebral infarction without residual deficits
CPT/HCPCS: 80048; 85027; 85347; 92928; 93005; 93458; 99152; 99153; C1760; J7030; J7040; C1725; C1769; C1874; C1887; C9600; Q9967

== ENCOUNTER → 2018-10-23 06:57 | Outpatient (CLI) | payer MEDICARE, SELFPAY ==
[2018-05-05 15:34] VITALS: BMI 22.8
[2018-10-09 14:42] VITALS: BMI 23.5
--- NOTE | 2018-10-23 08:59 | STRESSREP ---
Stress Test Report Pharmacologic myocardial perfusion stress test. 78-year-old lady with a history of chest pain. Stress protocol: Resting EKG demonstrates normal sinus rhythm with a rate of 78 bpm normal intervals are noted occasional premature ventricular complexes are noted. 0.4 mg of regadenoson was infused per usual protocol followed by rapid intravenous saline flush injection continuous EKG monitoring was performed. Patient maintained sinus rhythm throughout the recording with occasional premature ventricular complexes were noted. The maximum heart rate attained was 109 bpm which was 76% maximum predicted heart rate the maximum workload was 1 metabolic equivalent. At rest there were no ST or T wave changes noted suggest abnormal flow reserve peak infusion nonspecific ST-T wave changes were noted. The resting blood pressure 142/80 with a final blood pressure 160/72. Myocardial perfusion protocol. 11.2 mCi of technetium 99m sestamibi was injected at rest. 0.4 mg of regadenoson was infused per usual protocol peak infusion 32.9 mCi of technetium 99m sestamibi was injected stress images were obtained stress and rest images were reconstructed and compared in the short axis vertical and horizontal long axis. Gated images were also obtained next Perfusion SPECT analysis: Review of the stress images demonstrate normal uptake of tracer noted in all areas of myocardium. The rest images similarly demonstrate normal uptake of tracer noted in all areas of myocardium. No areas of reversibility are noted suggest ischemia no previous infarct is noted. Gated SPECT analysis: The gated ejection fraction is noted to be over 80%. Conclusion: Normal pharmacologic myocardial perfusion stress test. Preserved ejection fraction.
== END ==
PROVIDERS: Family Provider Family Medicine; PCP Family Medicine; Referring Provider Internal Medicine Cardiovascular Disease; Visit Provider Internal Medicine Cardiovascular Disease
DX: I25.10 Atherosclerotic heart disease of native coronary artery without angina pectoris (principal)
CPT/HCPCS: 78452; 93017; A9500; A4216; J2785

== ENCOUNTER 2019-04-14 06:20 | Day surgery (SDC) | payer MEDICARE, SELFPAY ==
[2018-05-05 15:34] VITALS: BMI 22.8
[2019-04-02 09:00] VITALS: BMI 24.7
[2019-04-02 15:54] LABS: Absolute Lymphocyte Count 2.23 X10^3/uL (0.83-4.51); Absolute Neutrophil Count 3.3 X10^3/uL (2.0-7.7); Basophil# 0.03 X10^3/uL; Basophil% 0.5 % (0-1); Eosinophil# 0.12 X10^3/uL; Hematocrit 37.4 % (37-47); Lymphocyte # 2.23 X10^3/ul (4.0); Mean Corp Hgb Conc 32.1 g/dL (32-36); Mean Corpuscular Hgb 30.7 pg (27.0-32.0); Mean Corpuscular Volume 95.7 fL (81-99); Mean Platelet Vol. 9.3 fl (6.2-12.0); Monocyte# 0.37 X10^3/uL; Monocyte% 6.1 % (0-10); NRBC Flagged by Analyzer 0 % (0-5); Neutrophil # 3.25 X10^3/uL (2.7-7.7); Neutrophil % 54.1 % (47-70); Platelet Count 326 K/mm3 (150-450); RBC Distribution Width CV 11.9 % (11.6-14.6); RBC Distribution Width SD 41.4 fl (35.1-43.9); Red Blood Count 3.91 M/mm3 (4.2-5.4)
[2019-04-02 16:03] LABS: International Normalized Ratio 0.9; Prothrombin Time (Protime)PT. 12.3 SECONDS (11.7-14.9)
[2019-04-02 16:04] LABS: Partial Thromboplast Time 31.6 Seconds (24.1-36.2)
[2019-04-02 16:23] LABS: Anion Gap 4 (5-15); BUN 17 mg/dL (7-18); BUN/Creat Ratio 22.3 RATIO (10-20); Calcium,Total 9.1 mg/dL (8.5-10.1); Chloride 105 mmol/L (98-107); Creatinine, Serum 0.76 mg/dL (0.55-1.02); EST Glomerular Filtration Rate 78 mL/min (>60); Est Glom Filt Rate - Afr Amer 94 mL/min (>60); Glucose 99 mg/dL (74-106); Potassium 4.7 mmol/L (3.5-5.1); Sodium Level 138 mmol/L (136-145)
--- NOTE | 2019-04-03 11:02 | HP_ITS ---
HPI HPI History of Present Illness Surgical H&P: Yes Details: This is a 78-year-old female that presents here today for an urgent appointment for concerns over chest pain and elevated blood pressure in which she was seen in [place] [facility] a few weeks ago. She has history of coronary artery disease status post drug-eluting stent to RCA in July 2016 and drug-eluting stent to proximal diagonal 1 and mid LAD in June 2017, supraventricular tachyarrhythmia, hypertension, and hyperlipidemia. You do remember that after her heart attack cardiac catheterization in June 2017 demonstrated left main coronary artery with 30% stenosis for which she underwent a vascular ultrasound which did not demonstrate any high-grade stenosis, the left anterior descending artery had an 80% proximal stenosis with a first diagonal vessel with a 90% stenosis. The ramus intermedius had a 50% stenosis and the right coronary artery had a stent which was patent. She underwent placement of a 2.5 mm resolute drug-eluting stent in the first diagonal vessel and a 3.0 x 34 stent in the mid left anterior descending artery. She was in our office last month and continued to complain of chest discomfort. She did undergo a heart catheterization which demonstrated previously placed stent to the RCA with severe in-stent stenosis, previously placed stent to the LAD and diagonal were patent with ostial diagonal stenosis. Moderate disease was noted to the circumflex and ramus intermedius. Patient did undergo stenting of the RCA Pt had called earlier this month for heart burn symptoms and not feeling well. She had taken Tums and NTG with no relief. Because this was after hours she went to an outside ER. She was given Lopressor and symptoms resolved. She states last week she had chest discomfort and felt like someone was sitting on her chest. She took 2 NTG to resolve symptoms. She seen her PCP the following day. She sts that her symptoms were similar to what she had when she had her stent done in May and for her stress test in October of this year. She does not have any worsening SOB. She has not had any palpitations that she is aware of. She does not have any near syncope/syncope. She does occasionally have edema. 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 Is patient in pain?: No Allergies amoxicillin Allergy (Verified 04/02/19 13:56) projectile vomiting diazepam [From Valium] Allergy (Verified 04/02/19 13:56) Unknown gabapentin Allergy (Verified 04/02/19 13:56) Unknown promethazine Allergy (Verified 04/02/19 13:56) Unknown zolpidem Allergy (Verified 04/02/19 13:56) Unknown morphine Adverse Reaction (Severe, Verified 04/02/19 13:56) Heart stopped Medications Metoprolol Succinate 100 mg PO DAILY 06/20/17 [History Confirmed 04/02/19] Pantoprazole Sodium [Protonix] 40 mg PO DAILY 06/20/17 [History Confirmed 04/02/19] Triamterene/Hydrochlorothiazid [Triamterene-Hctz 37.5-25 mg Cp] 1 ea PO DAILY 06/20/17 [History Confirmed 04/02/19] Oxycodone [Oxyfast] 10 mg PO TID 06/21/17 [History Confirmed 04/02/19] pramipexole 0.125 mg tablet 0.375 mg PO QHS tab 04/25/18 [History Confirmed 04/02/19] Aspirin [Aspirin, Baby] 81 mg PO DAILY@0800 05/05/18 [History Confirmed 04/02/19] isosorbide mononitrate ER 30 mg tablet,extended release 24 hr 30 mg PO DAILY 10/09/18 [History Confirmed 04/02/19] amlodipine 10 mg tablet 10 mg PO DAILY #30 tab 04/02/19 [Rx Confirmed 04/02/19] atorvastatin 20 mg tablet 20 mg PO DAILY #30 tab 04/02/19 [Rx Confirmed 04/02/19] clopidogrel 75 mg tablet 75 mg PO DAILY #30 tab 04/02/19 [Rx Confirmed 04/02/19] [facility] History Atherosclerosis of coronary artery of [place] heart without angina pectoris (Chronic) Hyperlipidemia (Chronic) Hypertension (Chronic) Other chest pain (Chronic) Premature ventricular contractions (Chronic) SVT (supraventricular tachycardia) (Chronic) Anemia (Chronic) CVA (cerebral vascular accident) (Chronic) Lung nodule (Chronic) Surgical History History of coronary artery stent placement (Resolved 05/05/18) History of lumbar fusion (Resolved) History of open reduction and internal fixation (ORIF) procedure (Resolved) History of tubal ligation (Resolved) Varicose vein of leg (Resolved) Family History Father CAD (coronary artery disease) Hypertension CVA (cerebral vascular accident) CHF (congestive heart failure) Mother CAD (coronary artery disease) Hypertension Lung cancer Social History (Updated 04/03/19 @ 11:02 by LINDA Park) Smoking Status: Never smoker alcohol intake: never substance use type: does not use caffeine: Yes Type: coffee Number of servings: 2 what type of physical activity do you participate in: none seatbelt use: always do you feel safe at home: Yes ROS Const Const: Negative for fatigue, weakness, headache(s), frequent falls, night sweats, daytime sleepiness or excessive sweating Eyes Eyes: Negative for blind spots, loss of peripheral vision, transient loss of vision, blurry vision or double vision ENT ENT: Negative for headache(s) or balance problems Cardio Chest Pain: Yes Character: sharp, dull Duration: minutes Exacerbation: rest Palpitations: No Edema: None Muscle aches with walking: None Resp Respiratory: Negative for SOB with activity, SOB at rest, SOB orthopnea\SOB lying down, Cough or paroxysmal nocturnal dyspnea GI GI: Negative nausea, vomiting, heartburn, bright, red blood in stools or black,tarry stools : Negative for hematuria Musc Musc: Negative for muscle aches/ myalgia, muscle weakness, joint pain or balance problems Skin Skin: Negative non-healing lesions, rash or unusual bruising Neuro Neuro: Negative for frequent falls, headache(s), weakness, blurry vision or double vision Krunal Hematologic/Lymphatic: Negative for easy bleeding or easy bruising Endo Endo: Negative for fatigue or excessive sweating Psych Psych: Negative for anxiety or depression Allergy Allergy/Immunology: Negative for rash Cardiology Exam Const Appearance: cooperative, no acute distress and well developed Orientation: alert, awake and oriented x3 Head Head: normocephalic and atraumatic Mouth: moist mucous membranes Eyes General: appearance normal, both eyes and all related structures Conjunctivae: conjunctivae normal Pupils: PERRL EOM: EOM intact bilaterally Neck Neck: normal visual inspection, no lymphadenopathy and no JVD Carotids: Negative bruit Neck Mass: Negative Neck mass Chest Chest inspection: normal inspection of the chest and symmetric chest movement Auscultation: Bilateral: Clear to Auscultation Cardio Palpation: normal PMI Rate: regular rate Rhythm: regular rhythm Heart sounds: S1 normal and S2 normal; negative rub, gallop or murmur GI GI: normal to inspection, soft, no hepatosplenomegaly and bowel sounds present; negative tender Neuro General: alert, awake, oriented x3, CN's II-XI intact bilaterally and moves all extremities Extremities Pulses: Normal: Right Posterior Tibial Pulse, Left Posterior Tibial Pulse, Right Radial Pulse, Left Radial Pulse Lower Extremity Edema: None: Bilateral Psych Psychological: normal affect Assessment & Plan 1. Coronary artery disease involving [place] coronary artery of [place] heart with other form of angina pectoris I25.118 Plan Patient does have symptoms concerning for angina. At this present time will continue her on her current dose of isosorbide, will add Norvasc at 10 mg daily. We will also set patient up for a heart catheterization. This is scheduled for Dr. Jordan on April 14, 2019. Instructions were given to patient today. 2. Essential hypertension I10 Plan Blood pressure is elevated, this could be contributing to some of her symptoms. Will add Norvasc at 10 mg daily. We will continue to monitor. 3. Pure hypercholesterolemia E78.00 Plan Patient will continue with current dose of statin. Plan Detail Other Orders Orders: Left Heart Cath/COR/LV Percut 04/02/19 I20.9, I25.2 Basic Metabolic Profile (BMP) 04/14/19 I20.9 Partial Thromboplast Time 04/14/19 I20.9, R07.89 Prothrombin Time w/INR 04/14/19 I20.9, I25.10 CBC W/Diff, Automated 04/14/19 I20.9, I25.2 Other Medications New: amlodipine (Norvasc) 10 mg PO DAILY 30 tabs 6RF Refilled: clopidogrel 75 mg PO DAILY 30 tabs 11RF atorvastatin (Lipitor) 20 mg PO DAILY 30 tabs 11RF Additional Comments Patient was advised that if her symptoms do not improve that she should give her office a call or that she should go to the emergency room. The above patient was discussed with Dr. Jordan, he agrees with plan of care. Thank you for allowing us to participate in patient's plan of care, if you have any questions please do not hesitate to call. This note was generated using a voice recognition system and there may be incorrect words, spelling or punctuation errors that were not noted when reviewing the office note prior to saving. Follow Up 1 Month (MMM) Coding Level of Care Code Off vis,est,level 4 Diagnoses Coronary artery disease involving [place] coronary artery of [place] heart with other form of angina pectoris I25.118 ??Coronary Disease-Associated Artery/Lesion type: [place] artery ??[place] vs. transplanted heart: [place] heart ??Associated angina: with other forms of angina Essential hypertension I10 ??Hypertension type: essential hypertension Pure hypercholesterolemia E78.00 ??Hyperlipidemia type: pure hypercholesterolemia Coding Level of Care Code Off vis,est,level 4 Diagnoses Coronary artery disease involving [place] coronary artery of [place] heart with other form of angina pectoris I25.118 ??Coronary Disease-Associated Artery/Lesion type: [place] artery ??[place] vs. transplanted heart: [place] heart ??Associated angina: with other forms of angina Essential hypertension I10 ??Hypertension type: essential hypertension Pure hypercholesterolemia E78.00 ??Hyperlipidemia type: pure hypercholesterolemia Supplemental Info Supplemental Information Pharmacological nuclear stress test in October 2018 demonstrates:Normal pharmacologic myocardial perfusion stress test. Preserved ejection fraction. Cardiac catheterization in May 2018 demonstrates: CONCLUSIONS Previously placed stent in the right coronary artery with severe in-stent stenosis and dampening of pressure on engagement. Previously placed stent in the LAD and diagonal vessel are patent with ostial diagonal stenosis. Moderate disease is noted in the circumflex and ramus intermedius system. RECOMMENDATIONS Referred for immediate PCI CORONARY ANGIOGRAPHY DOMINANCE: Right Dominant LEFT HEART ASSESSMENT Left Ventricular Ejection Fraction: by LV Gram 60 % Normal Left Ventricular systolic function LEFT MAIN: 30 % Stenosis LEFT ANTERIOR DECENDING ARTERY: PROX LAD: Previously placed stent is patent DIAGONAL 1: Ostial - 60 % Stenosis, Proximal - Previously placed stent is patent CIRCUMFLEX ARTERY: Mild luminal irregularities RAMUS: Moderate luminal irregularities up to 50% RIGHT CORONARY ARTERY: Mild luminal irregularities PROX RCA: Previously placed stent has an instent 85 % restenosis PCI 05/2018: Successful PTCA/RE of proximal RCA ISR with a 2.0 x 10 Angiosculpt, followed by a 2.5 x 32 Promus Synergy, post dilated throughout with a 3.0 x 12 NC Balloon; 75%-->0%, no dissection. Diagnostics Electrocardiogram 05/06/18 Stress Test Nuclear Medicine 10/23/18 Stress Test 10/23/18 Cardiac Catheterization 05/05/18 Chest X-Ray 11/17/17 04/03/19 1102 <Electronically signed by Brooke Mendoza> Date _ Brooke MCKEON
[2019-04-14] VITALS (32 sets, daily range): BP systolic 103–178; BP diastolic 57–99; PULSE 77–108; RESP 11–24; TEMP 36.3–37.3; O2SAT 96–100; BMI 25.7
--- NOTE | 2019-04-14 08:49 | CL.D_ITS ---
Patient Name: TREE HAMMONDS Study Date: 04/14/2019 Performing: Skyler Jordan MD Ht: 64.17 inches 163 cm : 1940 Wt: 143.3 lbs 65 kg Age: 78 Gender: female BSA: 1.7 PROCEDURE(S) PERFORMED IA23-ULN/COR/LV CLINICAL PROFILE AND INDICATIONS Indications: Worsening Angina Heart Failure: None Stress/Imaging Date: 10/27/2018Stress Test with SPECT MPI: Negative CAD Presentations: Unstable angina. CONCLUSIONS Ostial first diagonal lesion with high-grade stenosis, previously placed stent in the left anterior d escending artery is patent, previously placed stent in the right coronary artery is patent but with o stial and proximal 60% stenosis. RECOMMENDATIONS In light of persistent angina with exertion and rest decision was made to attempt angioplasty of the diagonal vessel and to the proximal right coronary artery. This is despite a recently normal normal pharmacologic myocardial perfusion stress test. Above discussed with patient who is in agreement. DESCRIPTION OF PROCEDURE The patient arrived to the procedure lab. The risks and benefits of the procedure as well as a full d escription of our services here and current unavailability of surgical backup were fully explained to the patient and/or their significant other prior to the catheterization. The Timeout was completed, verifying the correct patient and procedure. The patient's procedural site was prepped and draped in the usual fashion. Local anesthetic was given subcutaneously to right groin region with Lidocaine 2%. Using a modified Seldinger technique, arterial access was obtained via the right femoral artery, a 5 Fr sheath was inserted. Left Coronary Artery selective angiography was performed in multiple views u sing a 5 Fr. JL4 catheter. Right Coronary Artery selective angiography was then performed in multiple views using a 5 Fr. 3DRC (Gurwinder) catheter. Right Coronary Artery selective angiography was then p erformed in multiple views using a 5 Fr. JR 4 catheter. Left Ventriculography was performed in BOU[place] projection using a 5 Fr. Pigtail catheter. LV to AO pullback pressures were then rec orded. CORONARY ANGIOGRAPHY DOMINANCE: Right Dominant LEFT HEART ASSESSMENT Left Ventricular Ejection Fraction: by LV Gram 65 % Normal Left Ventricular systolic function LEFT MAIN: Non-obstructive LEFT ANTERIOR DESCENDING ARTERY: PROX LAD: Previously placed stent is patent DIAGONAL 1: Ostial - 95 % Stenosis CIRCUMFLEX ARTERY: MID CIRC: Non-obstructive RAMUS: Mild luminal irregularities RIGHT CORONARY ARTERY: Previously placed stent has an instent 60 % restenosis MID RCA: Previously placed stent is patent DISTAL RCA: Mild luminal irregularities COMPLICATIONS PROCEDURE MEDICATIONS Versed 1 mg IV Fentanyl 50 mcg IV Versed 1 mg IV Fentanyl 50 mcg IV Oxygen: 2 L/min via nasal cannula Labetalol 10 mg 04/14/2019 08:13:33 Labetalol 10 mg 04/14/2019 08:13:33 Heparin 5000 unit(s) IV 04/14/2019 08:41:20 Nitro Tab 0.4 mg PO 04/14/2019 08:13:25 SUMMARY OF HEMODYNAMIC DATA Time AIR REST ECG 07:56:37 AO 234/110 (166) SA 08:11:01 AO 173/105 (138) 08:15:34 AO 143/84 (114) 08:21:09 LV 175/-9, -3 08:29:10 LV 170/-7, -1 08:29:16 LV 177/-25, 3 08:29:59 LVp 179/-24, 6 08:30:05 AOp 184/68 (125) 08:30:10 AO 137/87 (113) 08:44:28 Signed By Skyler Jordan MD On 04/14/2019 08:47:37 Skyler Jordan MD
--- NOTE | 2019-04-14 09:30 | EKG12_ITS ---
Test Reason : Blood Pressure : / mmHG Vent. Rate : 090 BPM Atrial Rate : 090 BPM P-R Int : 152 ms QRS Dur : 064 ms QT Int : 358 ms P-R-T Axes : 076 -45 038 degrees QTc Int : 437 ms Normal sinus rhythm Right atrial enlargement Left axis deviation Abnormal ECG When compared with ECG of 06-MAY-2018 02:57, Nonspecific T wave abnormality has replaced inverted T waves in Inferior leads Confirmed by ANDREI LION, KAYLEY ([id number]), movie editor BRIAN CORTES ([id number]) on 04/20/2019 3:50:36 PM Referred By: Skyler Jordan Confirmed By:JC FORBES MD
[2019-04-14] MEDS: 0.9% Normal Saline 1,000 ML 100 ML IV ×3 (10:00→20:36)
--- NOTE | 2019-04-14 10:07 | CL.I_ITS ---
Patient Name: TREE HAMMONDS Study Date: 04/14/2019 Performing: Raza Egan MD Ht: 64.17 inches 163 cm : 1940 Wt: 143.3 lbs 65 kg Age: 78 Gender: female BSA: 1.7 PROCEDURE(S) PERFORMED [id number], SINGLE CORONARY ARTERY [id number] W OR WO PTCA, SINGLE CORONARY ARTERY CLINICAL PROFILE AND CO-MORBIDITIES Indications: Worsening Angina Heart Failure: None Stress/Imaging Date: 10/27/2018 Stress Test with SPECT MPI: Negative CAD Presentations: Unstable angina. CONCLUSIONS Successful PCI of ISR of RCA with angiosculpt balloon. Successful PTCA and RE to ostial D1. RECOMMENDATIONS Follow up with Dr. Nikki BIANCHI Indefinitley Plavix for at least 12 months Routine post interventional care DESCRIPTION OF PROCEDURE The patient arrived to the procedure lab. The risks and benefits of the procedure as well as a full d escription of our services here and current unavailability of surgical backup were fully explained to the patient and/or their significant other prior to the catheterization. The Timeout was completed, verifying the correct patient and procedure. The patient's procedural site was prepped and draped in the usual fashion. Local anesthetic was given subcutaneously to right groin region with Lidocaine 2% Using a modified Seldinger technique,arterial access was obtained via the right femoral artery, a 5Fr sheath was inserted. Left Coronary Artery selective angiography was performed in multiple views usin g a 5 Fr. JL4 catheter. Right Coronary Artery selective angiography was then performed in multiple vi ews using a 5 Fr. 3DRC (Gurwinder) catheter. Right Coronary Artery selective angiography was then perf ormed in multiple views using a 5 Fr. JR 4 catheter. Left Ventriculography was performed in BOUDREAUX projection using a 5 Fr. Pigtail catheter. LV to AO pullback pressures were then recorded.The images were reviewed and options discussed. A decision was then made to proceed with an Intervention, IVUS or other adjunct procedure. Arterial sheath was exchanged for a 6 Fr Sheath. JR 4 Guide catheter was inserted and engaged int o the RCA. BMW Guide wire was advanced to the RCA. Emerge 2.5x12 Balloon catheter was inserted. PTCA balloon inflated at 12 atms for 40 secs. PTCA balloon inflated at 14 atms for 24 secs. Angiogram perf ormed post balloon dilatation. Angiosculpt 3.0x10 Balloon catheter was inserted. Angiogram performed post balloon dilatation. XB 3.0 Guide catheter was inserted and engaged into the LCA. BMW Guide wire was advanced to the 1st Diagonal. Emerge 2.00x12 Balloon catheter was inserted. PTCA balloon inflated at 6 atms for 13 secs. PTCA balloon inflated at 6 atms for 7 secs. Angiogram performed post balloon dilatation. Synergy 2.25x8 Drug Eluting stent was inserted. Angiogram performed post stent deployment . The arterial sheath was sutured in place and capped INTERVENTION INFORMATION LESION SITE: RCA (Ostial) Lesion Complexity: High/C, chronic total occlusion: No, lesion at bifurcation: No, thrombus present: No, lesion length: 12 mm, culprit lesion: Yes, Previously treated lesion: Yes, In-stent restenosis: Y es, Timeframe of previous treatment: 6-12 months, Previously treated with a stent: Yes Stent Type: wi th RE Pre Stenosis: 80 % Pre intervention JONATHAN flow: 3 PROCEDURE: Cutting Balloon Angioplasty Post Stenosis: 0 % Post intervention JONATHAN flow: 3 Lesion Devices: Cordis 6 Fr JR4 100cm Guide Catheter Banks .014 BMW [place] Straight 190cm Servando Sci EMERGE MR 2.50x12 BALLOON [place] Angiosculpt RX 3.0x10 Scoring Balloon LESION SITE: 1st Diagonal (Ostial) Lesion Complexity: High/C, chronic total occlusion: No, lesion at bifurcation: Yes, thrombus present: No, lesion length: 6 mm, culprit lesion: Yes, Previously treated lesion: No Pre Stenosis: 90 % Pre intervention JONATHAN flow: 3 PROCEDURE: Drug Eluting Stent with pre dilatation. Post Stenosis: 0 % Post intervention JONATHAN flow: 3 Lesion Devices: Banks .014 BMW [place] Straight 190cm Cordis 6 Fr XB3.0 100cm Guide Catheter Servando Sci EMERGE MR 2.00x12 BALLOON Servando Sci Synergy MR RE 2.25x08 COMPLICATIONS No Complications PROCEDURE MEDICATIONS Versed 1 mg IV Fentanyl 50 mcg IV Versed 1 mg IV Fentanyl 50 mcg IV Oxygen: 2 L/min via nasal cannula Labetalol 10 mg 04/14/2019 08:13:33 Labetalol 10 mg 04/14/2019 08:13:33 Heparin 5000 unit(s) IV 04/14/2019 08:41:20 Nitro Tab 0.4 mg PO 04/14/2019 08:13:25 IV Bolus: .9 NaCl 250 ml total 04/14/2019 09:33:42 SUMMARY OF HEMODYNAMIC DATA Time AIR REST ECG 07:56:37 AO 234/110 (166) SA 08:11:01 AO 173/105 (138) 08:15:34 AO 143/84 (114) 08:21:09 LV 175/-9, -3 08:29:10 LV 170/-7, -1 08:29:16 LV 177/-25, 3 08:29:59 LVp 179/-24, 6 08:30:05 AOp 184/68 (125) 08:30:10 AO 137/87 (113) 08:44:28 AO 170/61 (109) 09:11:29 Signed By Raza Egan MD On 04/14/2019 10:07:12 AM Raza Egan MD
--- NOTE | 2019-04-14 11:03 | CRPHASE1_ITS ---
Patient Communication PHII Cardiac Rehab Discussed with Patient:: Yes - SPOKE WITH , PT VERY ANXIOUS AT PRESENT Guide to Cardiac Rehab Given to Patient:: Yes Cardiac Rehab Facility Choice List Given to Patient:: Yes - [facility] Choice Program [facility] CR PHII:: Communication Given to CR, Refer to [facility] Boom Pump Operator:: Shree Egan PCP:: Milton Kang Refer Phase II Cardiac Rehab:: Yes Sessions:: 36 sessions - 3 days/wk, 12 weeks Risk Factors/Lifestyle Smoking Status: Unknown if ever smoked Hx Hypertension: Yes Height: 5 ft 3 in Weight:: 145 lb BMI: 25.7 Post-Menopausal: Yes Stress: Recent - PT EXTREMELY ANXIOUS AT PRESENT, NURSE ADDRESSING AT PRESENT Family History: Family History (Last Reviewed 04/02/19 @ 14:22 by LINDA Park) Father CAD (coronary artery disease) Hypertension CVA (cerebral vascular accident) CHF (congestive heart failure) Mother CAD (coronary artery disease) Hypertension Lung cancer Phase I Education Given On:: [place], Nutrition, Antiplatelet medication, CHF, Smoking cessation, Diabetes - Type I, Diabetes - Type II Issues Affecting Care:: Emotional - PT VERY ANXIOUS AT PRESENT, SPOKE WITH Medical/Surgical History NH:: Yes CAD:: Yes Hypertension:: Yes Dyslipidemia:: Yes Arrhythmias:: Yes - HX SVT AND PVC'S Other Medical/Surgical Issues:: ANEMIA PTCA:: Yes - PREVIOUS AND TODAY Discharge/Home/Social Eval Discharge Disposition: Home Marital Status: Cardiac Rehabilitation Info Cardiac Rehabilitation Program Information: Cardiac Rehabilitation is important for patients like you who are recovering from a heart problem. Cardiac rehabilitation programs are recognized as integral to the continued care of the patient with coronary heart disease. The cardiac rehabilitation program is designed to optimize a patient's physical, psychological, and social functioning. Health child care sitter work in cardiac rehabilitation programs and assist you with getting the tr eatments you need to get stronger and healthier - like exercise, healthy eating habits, and medications. Cardiac rehabilitation has been show to help people with heart problems live longer and have better life enjoyment than people who do not go to cardiac rehabilitation. Please contact the Cardiac Rehabilitation Program at [facility] at in two weeks if you have not heard from them.
--- NOTE | 2019-04-14 11:09 | CRPH1.INSTRU ---
General Education CAD and cardiac anatomy and function:: Not instructed Explanation of diagnoses and procedures:: Not instructed Sign/Symptoms of MN:: Not instructed Antiplatelet therapy: Not instructed Proper use of NTG-SL: Not instructed Emergency procedures and activation of EMS: Not instructed Compliance of all prescribed medications: Not instructed - PT WAS EXTREMELY ANXIOUS AND WAITNG FOR MEDICATION, SPOKE WITH Smoking Nicotine/Smoking Response Code:: Not instructed Dyslipidemia Dyslipidemia Response Code:: Not instructed Overweight/Obesity Patient Overweight/Obesity Risk Factors Are:: BMI Normal [24-29 & > 65 years old] Overweight/Obesity:: Not instructed Hypertension Recommendations Include:: Maintain BP <130/85, BP <130/80 if diabetic, DASH dietary guidelines, Decrease/maintain normal body weight, Moderation of ETOH Hypertension:: Not instructed Heart Disease Patient Heart Disease Risk Factors Are:: Previous cardiac event Heart Disease Response Code:: Not instructed Diabetes Patient Diabetes Risk Factors Are:: No documented hx of diabetes Metabolic Syndrome Metabolic Syndrome Response Code:: Not instructed Sedentary Sedentary Response Code:: Not instructed Stress Recommendations Include:: Identification of stressors, and assessment of coping skills, Stress management techniques Stress Response Code:: Not instructed - DISCUSSED CR PROGRAM WITH , PT IN ROOM. PT EXTREMELY ANXIOUS AT PRESENT. WILL F/U WITH PHONE CALL AFTER PT DISCHARGED HOME.
[2019-04-14] MEDS: Triamterene 37.5MG/Hctz 25MG Capsule 1 CAP PO (11:10)
[2019-04-14] MEDS: Pramipexole Di-HCl 0.25 MG Tablet 0.375 MG PO (11:10)
[2019-04-14] MEDS: Midazolam 2 MG/2 ML Syringe 1 MG IV (12:00)
[2019-04-14 12:15] LABS: ACT Activated Clotting Time 153 sec (74-137)
--- NOTE | 2019-04-14 12:50 | NURSING ---
de la torre placed using sterile technique and some difficulty d/t rt leg immobility requirement. per pt request, lidocaine jelly used to elevate discomfort
--- NOTE | 2019-04-14 13:35 | NURSING ---
1335 prep for sheath pull, see MAR for fentanyl dose 1340 HR 84 R 15 BP 152/79 SpO2 98 RA 1342 sheath pulled per D Fidelina RN 1345 HR 85 R 19 BP 153/80 SpO2 97 RA 1350 HR 88 R 16 BP 153/80 SpO2 97 RA 1355 HR 84 R 15 BP 144/82 SpO2 97 RA 1400 HR 83 R 13 BP 147/76 SpO2 98 RA hemotasis, site w/out hematoma/bruit. sm bruise lateral to puncture 1405 HR 81 R 14 BP 146/75 SpO2 98 RA DSD applied
[2019-04-14] MEDS: fentaNYL 100 MCG/2 ML Ampul 50 MCG IV (13:40)
--- NOTE | 2019-04-14 13:41 | NURSING ---
1342 sheath pulled tolerating well
[2019-04-14] MEDS: Ondansetron 4 MG/2 ML Vial IV (13:46)
[2019-04-14] MEDS: oxyCODONE 5 MG Tablet 10 MG PO ×2 (16:44→22:04)
[2019-04-14] MEDS: Lidocaine Jelly 2% 20 ML Syringe (URO-JET) 20 APPLIC TOPICAL (18:07)
[2019-04-14] MEDS: Acetaminophen 325 MG Tablet 650 MG PO (22:04)
[2019-04-14] MEDS: Atorvastatin Calcium 20 MG Tablet PO (22:05)
[2019-04-14] MEDS: Pantoprazole Sodium 40 MG Tablet PO (22:05)
[2019-04-14] MEDS: Pramipexole Di-HCl 0.125 MG Tablet 0.375 MG PO (22:18)
[2019-04-15] VITALS (9 sets, daily range): BP systolic 99–126; BP diastolic 52–67; PULSE 70–89; RESP 16–18; TEMP 36.6–37.1; O2SAT 94–98
[2019-04-15 04:22] LABS: Hemoglobin 10.1 g/dL (12.0-15.0); Mean Corp Hgb Conc 31.6 g/dL (32-36); Mean Corpuscular Hgb 30.1 pg (27.0-32.0); Mean Corpuscular Volume 95.2 fL (81-99); Mean Platelet Vol. 9.5 fl (6.2-12.0); Platelet Count 329 K/mm3 (150-450); RBC Distribution Width CV 12.1 % (11.6-14.6); RBC Distribution Width SD 42.4 fl (35.1-43.9); Red Blood Count 3.36 M/mm3 (4.2-5.4); White Blood Count 6.7 K/mm3 (4.4-11.0)
[2019-04-15 04:37] LABS: ALB/GLOB Ratio 0.8 RATIO (0.9-2.4); AST(SGOT) 22 U/L (15-37); Alanine Aminotransfer ALT/SGPT 16 U/L (13-56); Albumin, Serum 2.9 g/dL (3.2-5.0); Alkaline Phosphatase 91 U/L (45-117); Anion Gap 8 (5-15); BUN 13 mg/dL (7-18); BUN/Creat Ratio 15.6 RATIO (10-20); Calcium,Total 8.4 mg/dL (8.5-10.1); Chloride 104 mmol/L (98-107); Creatinine, Serum 0.83 mg/dL (0.55-1.02); EST Glomerular Filtration Rate 71 mL/min (>60); Est Glom Filt Rate - Afr Amer 85 mL/min (>60); Estimated Creatinine Clearance 46.21 ml/min; Globulin 3.7 g/dL (2.2-4.2); Glucose 111 mg/dL (74-106); Potassium 4.1 mmol/L (3.5-5.1); Protein, Total 6.6 g/dL (6.4-8.2); Sodium Level 139 mmol/L (136-145)
[2019-04-15] MEDS: oxyCODONE 5 MG Tablet 10 MG PO (05:44)
[2019-04-15] MEDS: 0.9% Normal Saline 1,000 ML 100 ML IV (05:45)
[2019-04-15] MEDS: Acetaminophen 325 MG Tablet 650 MG PO (05:48)
--- NOTE | 2019-04-15 06:18 | NURSING ---
PATIENT TOLERATED GETTING UP TO CHAIR, RIGHT GROIN STABLE. DENIES ANY SOB OR PAIN
--- NOTE | 2019-04-15 07:08 | PN.CARD_ITS ---
Subjectve: Patient seen and evaluated. Appears to be doing much better this morning. No complaints from the groin all the chest. Objective: Vital Signs Temp Pulse Resp BP Pulse Ox 98.1 F 85 18 126/62 H 98 04/15/19 04:00 04/15/19 06:00 04/15/19 06:00 04/15/19 06:00 04/15/19 06:00 Oxygen Delivery Method Room Air Weight: 143 lb 4.807 oz Body Mass Index (BMI) 25.7 Intake and Output for Last 24 Hours 04/13/19 04/14/19 04/15/19 23:59 23:59 23:59 Intake Total 1735 / 1835 730 / 730 Output Total 1250 / 1650 600 / 600 Balance 485 / 185 130 / 130 General: Awake, Alert, Oriented x 3 HEENT: PERRL, EOMI, Sclera Non Icteric Neck: Supple, Good ROM, No Lymph Node Enlargement Lungs: Clear to auscultation Cardiovascular: Regular Rhythm, Normal S1, Normal S2, No Murmurs, No Rubs, No Gallops Vascular: No Carotid Bruits, Normal Femoral Pulses, Normal Radial Pulses, Normal Dorsalis Pedal Pulse, Normal Posterior Tibial Pulses Abdomen: Bowel Sounds Present, Soft, Non Tender, No HSM, No Organomegaly Extremities: No Cyanosis, No Clubbing, No edema Musculoskeletal: No Erythema Skin: No Rashes Lymphatic: No Lymph Node Enlargement Neurological: No Focal Motor or Sensory Deficit Psych/Mental Status: Appropriate 04/15/19 04:15: WBC 6.7, RBC 3.36 L, Hgb 10.1 L, Hct 32.0 L, MCV 95.2, MCH 30.1, MCHC 31.6 L, Plt Count 329, MPV 9.5 04/15/19 04:15: Sodium 139, Potassium 4.1, Chloride 104, Carbon Dioxide 27.0, Anion Gap 8, BUN 13, Creatinine 0.83, Est GFR (MDRD) Af Amer 85, Est GFR (MDRD) Non-Af 71, BUN/Creatinine Ratio 15.6, Glucose 111 H, Calcium 8.4 L, Total Bilirubin 0.40 Rhythm: EKG: ECHO: Stress Test: Cardiac Cath: PCI: CT Surgery: Holter monitor: EPS: PPM: CXR: Chest CT Scan: Medical Necessity - Tobacco Use Smoking Status: Unknown if ever smoked Assessment/Plan 1. Coronary artery disease. Patient has a history of known coronary artery disease and underwent angioplasty and stenting of the right coronary artery as well as the first diagonal vessel. Patient tolerated the procedure well. No EKG changes noted this morning blood work is noted to be normal groin is stable. Blood pressure parameters are stable and no cardiac telemetry arrhythmias noted. Plan is to discharge the patient on the same medications for outpatient follow- up. Will start cardiac rehabilitation.
--- NOTE | 2019-04-15 07:11 | PCM.DC.CCA ---
Discharge Diet: No Restrictions - You may continue your normal diet. Lifting Restrictions: 10 pounds and also avoid any pushing or pulling for 3 days after your test. Additional Activity Instructions:: You must have someone drive you home. Do not drive until instructed by your doctor. You must have someone stay with you all night after your test. Rest in bed or on the couch until the next morning. Limit the number of times you go up and down stairs the day of your test. Apply pressure to the puncture site if you sneeze or cough. Call your doctor if your incision/area has: Increased Pain/ Swelling, Increased Redness, Foul Smelling Discharge, Swelling at the incision site Call your doctor if you observe: Fever of 101 or Higher Additional Dressing/Incision Instructions:: Keep the dressing (bandage) on until the next morning. You may then shower, but do not take a tub bath for 5 days after your test. It is normal to have some tenderness and discomfort at the puncture site. Sometimes bruising also occurs. However, if pain, numbness, or coldness occurs below the puncture site (in your leg, toes, arms or fingers) call your doctor at once. You may have a small, marble sized knot at the puncture site. This is normal. Do not rub it. It will go away in 4-6 weeks. Bleeding can occur from the area where the puncture was done. Blood may spurt or drip from the site. If blood spurts, apply pressure right away to stop bleeding and call 911. Although rare, bleeding into the tissue (hematoma) can also occur. If this happens, a large, firm area goose egg under the skin will appear. If any of these occur, lie down as flat as you can and have someone apply firm pressure to the cath site with a gauze pad or a clean washcloth for 10-15 minutes. Call 911 or go to the Emergency Department. Allergies/Adverse Reactions: Allergies amoxicillin Allergy (Verified 04/02/19 13:56) projectile vomiting diazepam [From Valium] Allergy (Verified 04/02/19 13:56) Unknown gabapentin Allergy (Verified 04/02/19 13:56) Unknown promethazine Allergy (Verified 04/02/19 13:56) Unknown zolpidem Allergy (Verified 04/02/19 13:56) Unknown morphine Adverse Reaction (Severe, Verified 04/02/19 13:56) Heart stopped Medications to take at Discharge Metoprolol Succinate 100 mg PO DAILY 06/20/17 Pantoprazole Sodium [Protonix] 40 mg PO DAILY 06/20/17 Triamterene/Hydrochlorothiazid [Triamterene-Hctz 37.5-25 mg Cp] 1 ea PO DAILY 06/20/17 Oxycodone [Oxyfast] 10 mg PO TID 06/21/17 pramipexole 0.125 mg tablet 0.375 mg PO QHS tab 04/25/18 Aspirin [Aspirin, Baby] 81 mg PO DAILY@0800 05/05/18 isosorbide mononitrate ER 30 mg tablet,extended release 24 hr 30 mg PO DAILY 10/09/18 amlodipine 10 mg tablet 10 mg PO DAILY #30 tab 04/02/19 atorvastatin 20 mg tablet 20 mg PO DAILY #30 tab 04/02/19 clopidogrel 75 mg tablet 75 mg PO DAILY #30 tab 04/02/19 Primary Care Physician: Milton Kang MD [Primary Care Provider] - Test Results: Test results from this visit will be discussed in further detail at your follow-up appointment, if applicable. Proposed Discharge Date: 04/15/19 Cardiac Rehabilitation Info Cardiac Rehabilitation Program Information: Cardiac Rehabilitation is important for patients like you who are recovering from a heart problem. Cardiac rehabilitation programs are recognized as integral to the continued care of the patient with coronary heart disease. The cardiac rehabilitation program is designed to optimize a patient's physical, psychological, and social functioning. Health md do resident urgent care work in cardiac rehabilitation programs and assist you with getting the treatments you need to get stronger and healthier - like exercise, healthy eating habits, and medications. Cardiac rehabilitation has been show to help people with heart problems live longer and have better life enjoyment than people who do not go to cardiac rehabilitation. Please contact the Cardiac Rehabilitation Program at [facility] at in two weeks if you have not heard from them.
--- NOTE | 2019-04-15 10:00 | EKG12_ITS ---
Test Reason : AM EKG Blood Pressure : / mmHG Vent. Rate : 083 BPM Atrial Rate : 083 BPM P-R Int : 156 ms QRS Dur : 062 ms QT Int : 390 ms P-R-T Axes : 079 -26 021 degrees QTc Int : 458 ms Normal sinus rhythm Normal ECG When compared with ECG of 14-APR-2019 09:51, MANUAL COMPARISON REQUIRED, DATA IS UNCONFIRMED Confirmed by ANDREI LION, KAYLEY ([id number]), state editor BRIAN CORTES ([id number]) on 04/20/2019 3:51:21 PM Referred By: Skyler Jordan Confirmed By:JC FORBES MD
== END 2019-04-15 07:50 | disposition home or self-care (01) ==
LOC: CLSP 06:21 → ICU 09:08
PROVIDERS: Physician Assistant Medical; Specialist; Family Provider Family Medicine; PCP Family Medicine; Referring Provider Internal Medicine Cardiovascular Disease; Visit Provider Internal Medicine Cardiovascular Disease
DX: I25.110 Atherosclerotic heart disease of native coronary artery with unstable angina pectoris (principal); I10 Essential (primary) hypertension; E78.00 Pure hypercholesterolemia, unspecified; I49.3 Ventricular premature depolarization; I47.1 Supraventricular tachycardia; I25.2 Old myocardial infarction; D64.9 Anemia, unspecified; R07.89 Other chest pain; Z95.5 Presence of coronary angioplasty implant and graft; Z86.73 Personal history of transient ischemic attack (TIA), and cerebral infarction without residual deficits; Z79.82 Long term (current) use of aspirin; Z79.899 Other long term (current) drug therapy
CPT/HCPCS: 36415; 80048; 80053; 85025; 85027; 85347; 85610; 85730; 92920; 92928; 93005; 93458; 99152; J7030; J7040; Q9967; C1725; C1769; C1874; C1887; C9600; J2405

== ENCOUNTER 2019-12-22 10:25 | Observation (INO) | payer MEDICARE, SELFPAY ==
[2019-04-14 11:09] VITALS: BMI 25.7
[2019-04-30 08:05] VITALS: BMI 24.5
[2019-12-22] VITALS (29 sets, daily range): BP systolic 69–217; BP diastolic 40–105; PULSE 74–127; RESP 13–27; TEMP 36.1–36.7; O2SAT 98–100; BMI 24.5; BMI 23.0
[2019-12-22 11:11] LABS: Absolute Lymphocyte Count 2.08 X10^3/uL (0.83-4.51); Absolute Neutrophil Count 2.9 X10^3/uL (2.0-7.7); Basophil# 0.03 X10^3/uL; Basophil% 0.6 % (0-1); Eosinophil# 0.06 X10^3/uL; Eosinophils% 1.1 % (0-5); Hematocrit 42.7 % (37-47); Hemoglobin 13.6 g/dL (12.0-15.0); Lymphocyte # 2.08 X10^3/ul (4.0); Lymphocyte % 38.8 % (19-41); Mean Corp Hgb Conc 31.9 g/dL (32-36); Mean Corpuscular Hgb 29.6 pg (27.0-32.0); Mean Platelet Vol. 9.3 fl (6.2-12.0); Monocyte# 0.25 X10^3/uL; Monocyte% 4.7 % (0-10); NRBC Flagged by Analyzer 0 % (0-5); Neutrophil # 2.92 X10^3/uL (2.7-7.7); Neutrophil % 54.4 % (47-70); Platelet Count 326 K/mm3 (150-450); RBC Distribution Width CV 12.2 % (11.6-14.6); RBC Distribution Width SD 41.7 fl (35.1-43.9); Red Blood Count 4.59 M/mm3 (4.2-5.4); White Blood Count 5.4 K/mm3 (4.4-11.0)
[2019-12-22] MEDS: 0.9% Normal Saline 1,000 ML 150 ML IV (11:15)
--- NOTE | 2019-12-22 11:15 | RAD_ITS ---
STUDY: X-RAY CHEST REASON FOR EXAM: Female, 79 years old. CHEST PRESSURE X DAYS TECHNIQUE: Single AP portable view of the chest. COMPARISON: None. FINDINGS: The lungs are clear and expanded. There is no demonstrated pleural abnormality. Normal size heart. Normal mediastinum and alba. Normal visualized pulmonary arteries. There is atherosclerotic tortuosity of the aortic arch and descending thoracic aorta. Normal visualized thoracic spine. There is degenerative osteoarthritis of the bilateral shoulders. There is no demonstrated abnormality of the visualized soft tissue structures of the upper abdomen. RAD/Chest 1 View (Portable) IMPRESSION: Degenerative changes, as described above. No demonstrated acute cardiopulmonary process. Electronically Signed: Cyndi Denton, at 11:40 EDT Tel , Service support ,
[2019-12-22] MEDS: Nitroglycerin Oint 1 INCH PACKET TRANSDERM. (11:16)
--- NOTE | 2019-12-22 11:16 | NURSING ---
PER LAB, CHEMISTRIES HEMOLIZED
[2019-12-22 12:21] LABS: Anion Gap 5 (5-15); BUN 14 mg/dL (7-18); BUN/Creat Ratio 19.7 RATIO (10-20); Calcium,Total 9.4 mg/dL (8.5-10.1); Chloride 107 mmol/L (98-107); Creatinine, Serum 0.71 mg/dL (0.55-1.02); EST Glomerular Filtration Rate 84 mL/min (>60); Est Glom Filt Rate - Afr Amer 102 mL/min (>60); Estimated Creatinine Clearance 41.05 ml/min; Glucose 105 mg/dL (74-106); Potassium 4.4 mmol/L (3.5-5.1); Sodium Level 139 mmol/L (136-145)
--- NOTE | 2019-12-22 12:54 | ED.DCSUM_ITS ---
- ER Visit Summary Date of Service: 12/22/19 Chief Complaint: [Chest pain] History of Present Illness: The patient is a 79 F [presents the emergency department chest discomfort that started 2 or 3 days ago. Patient states the discomfort has been intermittent however with each successive episode it seems to last longer and longer. Patient had an episode around 1 AM that woke her up from sleep. Patient took a nitroglycerin around 3 AM it seemed to help relieve the discomfort. Patient woke up and continues to have discomfort and this morning the pain radiated into the left shoulder and left arm. On arrival to the emergency department she states essentially her pain is resolved. Patient does have a history of coronary artery disease with cardiac stents placed and her last that was about a year ago. Patient has a history of hypertension, high cholesterol, PVCs, prior stroke, and history of SVT.] Physical Examination: [HEENT-PERRLA, EOMI. Cranial nerves II through XII grossly intact. TMs clear. Mucous membranes moist. No adenopathy. Cardiovascular-regular rate and rhythm without murmur or ectopy Lungs-clear to auscultation, chest wall stable without crepitus or subcu emphysema Abdomen-normoactive bowel sounds, soft, nontender, no rebound or rigidity, no peritoneal signs. Extremities-intact ?4, normal range of motion, normal pulses, atraumatic] Test Results: [EKG obtained arrival showed a sinus rhythm with a ventricular rate of 85 bpm with old inferior infarct noted. CBC with differential was normal. Chemistries unremarkable. Troponin was less than 0.15. Chest x-ray showed nothing acute.] Emergency Department Course and Treatment: [IV line established on arrival. Patient had already taken aspirin and Plavix today. Patient placed on a environmental monitoring technician.] Treatment Plan: [Admit for further work-up and evaluation of her chest pain] Disposition: [Admit] Impression: [Chest pain-rule out acute coronary syndrome] This note was generated with [employer] dictation software. It may contain incorrect words, spelling, and punctuation that were not noted in review of the chart prior to signing ED Disposition - Plan for ED Patient: Referrals: Milton Kang MD [Primary Care Provider] -
--- NOTE | 2019-12-22 13:01 | PCM.HP.STD ---
Problem List (1) Atypical chest pain Status: Acute (2) Atherosclerosis of coronary artery of [place] heart without angina pectoris Status: Chronic Qualifiers: Coronary Disease-Associated Artery/Lesion type: [place] artery Qualified Code(s): I25.10 - Atherosclerotic heart disease of [place] coronary artery without angina pectoris Comment: RE to RCA 07/2016; ZGD-UIN-Fdv-LAD w/ 3.0 x 34 mm Resolute Integrity Stent and RE-Prox D1 w/ 2.5 x 12 mm Resolute Integrity Stent 06/21/17; PCI/RE-ISR Prox RCA w/ 2.5 x 32 mm Promus Synegy 05/05/18; HNX-ERK-Tadvdr D1 w/ 2.25 x 8 mm Synergy Stent and PCI-Cutting Balloon Angioplasty-ISR Ostial RCA 04/14/19 (3) 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 (4) History of coronary artery stent placement Status: Resolved Comment: RE to RCA 07/2016; KWF-OLU-Qjy-LAD w/ 3.0 x 34 mm Resolute Integrity Stent and RE-Prox D1 w/ 2.5 x 12 mm Resolute Integrity Stent 06/21/17; PCI/RE-ISR Prox RCA w/ 2.5 x 32 mm Promus Synegy 05/05/18; JWI-JOG-Dnnthc D1 w/ 2.25 x 8 mm Synergy Stent and PCI-Cutting Balloon Angioplasty-ISR Ostial RCA 04/14/19 (5) Essential (primary) hypertension Status: Chronic (6) Hyperlipidemia Status: Chronic Qualifiers: Hyperlipidemia type: pure hypercholesterolemia Qualified Code(s): E78.00 - Pure hypercholesterolemia, unspecified; E78.0 - Pure hypercholesterolemia (7) Premature ventricular contractions Status: Chronic (8) SVT (supraventricular tachycardia) Status: Chronic (9) Palpitations Status: Chronic History of Present Illness Date of Admission: 12/22/19 Chief Complaint: Chest pain for few days The patient is a 79 year old F with history of coronary artery disease status post 4 stents came to ER with chest discomfort at rest for 2 to 3 days. This chest discomfort were lasting for about 10 to 15 minutes, but today she had chest discomfort/pressure started about 3 AM in the morning that woke her up. This chest pain was prolonged, with radiation to left arm up to elbow, associated with shortness of breath, felt like dull headache as per the patient. She had cardiac cath in April 2019 and was found to have EF 65% with normal LV systolic function. Diagonal 1 ostial 95% stenosis, and previous stents in proximal LAD patent, RCA in-stent 60% stenosis, and angioplasty with stenting of RCA and first diagonal vessels. []Her last echo in 2017 from [place] shows EF 60 to 65% with impaired LV diastolic function. In ED, her blood pressure was elevated 185/90 heart rate 86/min. Patient had 10 mg of IV hydralazine. EKG done from EMS and ER reviewed. Shows normal sinus rhythm at 85 bpm with RAD, old inferior infarct and LAD. No significant EKG change from the previous EKG of April 2019.. Past Medical History Past Medical History (Chronic Problems): Chronic Problems (Last Reviewed 04/30/19 @ 10:[address] Skyler Jordan MD) Atherosclerosis of coronary artery of [place] heart without angina pectoris (Chronic) RE to RCA 07/2016; HFE-ATX-Ztz-LAD w/ 3.0 x 34 mm Resolute Integrity Stent and RE-Prox D1 w/ 2.5 x 12 mm Resolute Integrity Stent 06/21/17; PCI/RE-ISR Prox RCA w/ 2.5 x 32 mm Promus Synegy 05/05/18; QHI-MOM-Kdjtog D1 w/ 2.25 x 8 mm Synergy Stent and PCI-Cutting Balloon Angioplasty-ISR Ostial RCA 04/14/19 Old inferolateral myocardial infarction (Chronic 07/2016) Essential (primary) hypertension (Chronic) Hyperlipidemia (Chronic) Premature ventricular contractions (Chronic) SVT (supraventricular tachycardia) (Chronic) Palpitations (Chronic) Medical History: Medical History (Last Reviewed 04/30/19 @ 10:[address] Skyler Jordan MD) Atherosclerosis of coronary artery of [place] heart without angina pectoris (Chronic) I25.10 RE to RCA 07/2016; LGF-KOX-Adf-LAD w/ 3.0 x 34 mm Resolute Integrity Stent and RE-Prox D1 w/ 2.5 x 12 mm Resolute Integrity Stent 06/21/17; PCI/RE-ISR Prox RCA w/ 2.5 x 32 mm Promus Synegy 05/05/18; UHW-TMK-Visttf D1 w/ 2.25 x 8 mm Synergy Stent and PCI-Cutting Balloon Angioplasty-ISR Ostial RCA 04/14/19 Old inferolateral myocardial infarction (Chronic) Onset Date: 07/2016 I25.2 Essential (primary) hypertension (Chronic) I10 Hyperlipidemia (Chronic) E78.5 Premature ventricular contractions (Chronic) I49.3 SVT (supraventricular tachycardia) (Chronic) I47.1 Palpitations (Chronic) R00.2 Anemia D64.9 CVA (cerebral vascular accident) I63.9 Lung nodule R91.1 Hypertension (Resolved) I10 Other chest pain (Resolved) R07.89 Allergies amoxicillin Allergy (Verified 04/30/19 08:05) projectile vomiting diazepam [From Valium] Allergy (Verified 12/22/19 10:37) SEIZURES gabapentin Allergy (Verified 12/22/19 10:37) HYPER promethazine Allergy (Verified 12/22/19 10:37) PT UNSURE OF REACTION zolpidem Allergy (Verified 12/22/19 10:37) INSOMNIA Home Medications: Ambulatory Orders Medication Instructions Recorded Metoprolol Succinate 100 mg PO DAILY 06/20/17 Pantoprazole Sodium [Protonix] 40 mg PO DAILY 06/20/17 Triamterene/Hydrochlorothiazid 1 ea PO DAILY 06/20/17 [Triamterene-Hctz 37.5-25 mg Cp] Oxycodone [Oxyfast] 10 mg PO TID 06/21/17 pramipexole 0.125 mg tablet 0.375 mg PO QHS tab 04/25/18 Aspirin [Aspirin, Baby] 81 mg PO DAILY@0800 05/05/18 amlodipine 10 mg tablet 10 mg PO DAILY #30 tab 04/02/19 atorvastatin 20 mg tablet 20 mg PO DAILY #30 tab 04/27/19 clopidogrel 75 mg tablet 75 mg PO DAILY #30 tab 04/27/19 isosorbide mononitrate 60 mg 60 mg PO DAILY #30 tab 04/27/19 tablet,extended release 24 hr candesartan 8 mg tablet 8 mg PO DAILY #90 tab 04/30/19 Ropinirole HCl [Requip] 1 mg PO TID 12/22/19 Surgical History: Surgical History (Last Reviewed 04/30/19 @ 10:[address] Skyler Jordan MD) History of coronary artery stent placement (Resolved) Onset Date: 04/14/19 Z95.5 RE to RCA 07/2016; XQU-GYY-Frs-LAD w/ 3.0 x 34 mm Resolute Integrity Stent and RE-Prox D1 w/ 2.5 x 12 mm Resolute Integrity Stent 06/21/17; PCI/RE-ISR Prox RCA w/ 2.5 x 32 mm Promus Synegy 05/05/18; BFM-FEA-Detqwf D1 w/ 2.25 x 8 mm Synergy Stent and PCI-Cutting Balloon Angioplasty-ISR Ostial RCA 04/14/19 History of lumbar fusion Z98.1 History of open reduction and internal fixation (ORIF) procedure Z98.890 History of tubal ligation Z98.51 Varicose vein of leg I83.90 11/2010 Surgical History: - - back surgery lumbar fusion 2012, ORIF left hip 11/12/2016, varicose vein surgery 11/2010, hx of tubal ligation, hx of hysterectomy. 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 Skyler Jordan MD) Father CAD (coronary artery disease) Hypertension CVA (cerebral vascular accident) CHF (congestive heart failure) Mother CAD (coronary artery disease) Hypertension Lung cancer History Items: Heart Disease Paternal Family History: Family History (Last Reviewed 04/30/19 @ 10:[address] Skyler Jordna MD) Father CAD (coronary artery disease) Hypertension CVA (cerebral vascular accident) CHF (congestive heart failure) Mother CAD (coronary artery disease) Hypertension Lung cancer History Items: Heart Disease Review of Systems Constitutional: Denies: Chills, Fever, Weight Change HEENT: Denies: Head Aches, Sinus Congestion, Sinus Drainage Cardiovascular: Reports: Chest Pain. Denies: Palpitations Respiratory: Reports: Shortness of Breath. Denies: Cough, Shortness of breath at rest, Sputum production Gastrointestinal: Denies: Abdominal Pain, Nausea, Vomiting Genitourinary: Denies: Dysuria Musculoskeletal: Denies: Joint Pain, Joint Tenderness Skin: Denies: Rash, Wounds Neurological: Denies: Numbness, Tingling, Focal weakness Psychiatric: Reports: Anxiety. Denies: Depression, Homicidal Ideations, Suicidal Ideations Hematologic/ Lymphatic: Denies: Easy Bruising, Easy Bleeding VTE Information - Inpt Only VTE Present on Admission: No VTE Mechan Device Prophylaxis: None VTE Pharm Prophylaxis ordered?: Yes Patient Problems: Active and Suspected Problems (Last Reviewed 04/30/19 @ 10:[address] Skyler Jordan MD) Atypical chest pain (Acute) - Physical Exam Vitals/I&O's: Vital Signs Temp Pulse Resp BP Pulse Ox 98 F 86 17 185/90 H 98 12/22/19 12:55 12/22/19 12:55 12/22/19 12:55 12/22/19 12:55 12/22/19 12:55 Oxygen Flow Rate (L/min) 2 Oxygen Delivery Method Nasal Cannula Weight: 147 lb 4.301 oz Body Mass Index (BMI) 24.5 General: Alert, Oriented x3, Cooperative HEENT: Atraumatic, PERRLA, EOMI, Normocephalic Neck: Supple, No JVD, Negative Carotid Bruits Lungs: Clear to auscultation, Normal air movement, No rhonchi, No wheeze, No rales Cardiovascular: Regular rate, Regular Rhythm, Normal S1, Normal S2, No murmurs Abdomen: Bowel Sounds Present, Soft, Non Tender, Non-Distended Extremities: No edema, Capillary Refill Less than 3 Seconds Skin: No rashes, No breakdown Musculoskeletal: No Tenderness to Palpation of Joints or Extremities Neurological: Cranial nerves II-XII grossly intact, Neuro grossly intact Psych/Mental Status: Normal Affect, Appropriate Laboratory Results 12/22/19 11:05: WBC 5.4, RBC 4.59, Hgb 13.6, Hct 42.7, MCV 93.0, MCH 29.6, MCHC 31.9 L, RDW Std Deviation 41.7, RDW Coeff of Aly 12.2, Plt Count 326, MPV 9.3, Immature Gran % (Auto) 0.400, Neut % (Auto) 54.4, Lymph % (Auto) 38.8, [place] % (Auto) 4.7, Eos % (Auto) 1.1, Baso % (Auto) 0.6, Absolute Neuts (auto) 2.9, Absolute Lymphs (auto) 2.08, Nucleated RBC % 0 12/22/19 11:05: Sodium Cancelled, Potassium Cancelled, Chloride Cancelled, Carbon Dioxide Cancelled, Anion Gap Cancelled, BUN Cancelled, Creatinine Cancelled, Estim Creat Clear Calc Cancelled, Est GFR (MDRD) Af Amer Cancelled, Est GFR (MDRD) Non-Af Cancelled, BUN/Creatinine Ratio Cancelled, Glucose Cancelled, Calcium Cancelled, Troponin I Cancelled 12/22/19 11:55: Sodium 139, Potassium 4.4, Chloride 107, Carbon Dioxide 27.0, Anion Gap 5, BUN 14, Creatinine 0.71, Estim Creat Clear Calc 41.05, Est GFR (MDRD) Af Amer 102, Est GFR (MDRD) Non-Af 84, BUN/Creatinine Ratio 19.7, Glucose 105, Calcium 9.4, Troponin I < 0.015 Current Medications Sodium Chloride () 1,000 mls @ 150 mls/hr IV .Q6H40M CHINO Last Admin: 12/22/19 11:15 Dose: 150 mls/hr Documented by: Assessment/Plan All Active Problems (Last Reviewed 04/30/19 @ 10:[address] Skyler Jordan MD) Atypical chest pain (Acute) History of coronary artery stent placement (Resolved 04/14/19) Hypertension (Resolved) Other chest pain (Resolved) The patient is a 79 year old F with history of coronary artery disease status post 4 stents came to ER with chest discomfort at rest for 2 to 3 days. In ED, her blood pressure was elevated 185/90 heart rate 86/min. Patient had 10 mg of IV hydralazine. EKG done from EMS and ER reviewed. Shows normal sinus rhythm at 85 bpm with RAD, old inferior infarct and LAD. No significant EKG change from the previous EKG of April 2019. 1. Atypical chest pain suggestive of unstable angina with history of coronary artery disease and stents: Patient is being admitted in PCU. Repeat EKG and troponins as per protocol. If negative, myocardial nuclear perfusion stress test. If troponins positive, will consult cardiology. She had cardiac cath in April 2019 and was found to have EF 65% with normal LV systolic function. Diagonal 1 ostial 95% stenosis, and previous stents in proximal LAD patent, RCA in-stent 60% stenosis, and angioplasty with stenting of RCA and first diagonal vessels. []Her last echo in 2017 from [place] shows EF 60 to 65% with impaired LV diastolic function. Patient is on aspirin, Plavix, isosorbide mononitrate 60 mg daily, and metoprolol. 2. Mild lower extremity edema: BNP ordered. Lasix 40 mg IV 1 dose. Repeat echo tomorrow a.m. 3. Uncontrolled hypertension: On ARB candesartan, triamterene/HCTZ, and Imdur. Hydralazine 10 mg IV every 4 hourly and enalapril 1.25 mg every 6 hourly as needed as needed for systolic blood pressure more than 180 mmHg. 4. Other comorbidities include history of SVT/PVC, dyslipidemia, degenerative joint disease and restless leg syndrome: Multiple comorbidities complicates the present care and expect difficult and delay recovery DVT prophylaxis: On Lovenox 40 mg subcu daily. Living will/advanced directive/end of life care: Patient does not have living will or advanced directive. After discussion of procedures involved with full code, DNR CC arrest and DNR CC, the patient opted for DNR-CC Arrest Patient does not want artificial life support including intubation, tube feed, ventilator and/chest compression, central venous catheter, vasopressor and DC shock if needed DNR CC arrest. Total time spent in ldxn-ee-hvvy encounter in discussion of advanced directive 16 minutes. Laboratory Results 12/22/19 11:05: WBC 5.4, RBC 4.59, Hgb 13.6, Hct 42.7, MCV 93.0, MCH 29.6, MCHC 31.9 L, RDW Std Deviation 41.7, RDW Coeff of Aly 12.2, Plt Count 326, MPV 9.3, Immature Gran % (Auto) 0.400, Neut % (Auto) 54.4, Lymph % (Auto) 38.8, [place] % (Auto) 4.7, Eos % (Auto) 1.1, Baso % (Auto) 0.6, Absolute Neuts (auto) 2.9, Absolute Lymphs (auto) 2.08, Nucleated RBC % 0 12/22/19 11:05: Sodium Cancelled, Potassium Cancelled, Chloride Cancelled, Carbon Dioxide Cancelled, Anion Gap Cancelled, BUN Cancelled, Creatinine Cancelled, Estim Creat Clear Calc Cancelled, Est GFR (MDRD) Af Amer Cancelled, Est GFR (MDRD) Non-Af Cancelled, BUN/Creatinine Ratio Cancelled, Glucose Cancelled, Calcium Cancelled, Troponin I Cancelled 12/22/19 11:55: Sodium 139, Potassium 4.4, Chloride 107, Carbon Dioxide 27.0, Anion Gap 5, BUN 14, Creatinine 0.71, Estim Creat Clear Calc 41.05, Est GFR (MDRD) Af Amer 102, Est GFR (MDRD) Non-Af 84, BUN/Creatinine Ratio 19.7, Glucose 105, Calcium 9.4, Troponin I < 0.015 Clinical Impression(s) from Imaging Studies Chest X-Ray 12/22/19 11:15 IMPRESSION: Degenerative changes, as described above. No demonstrated acute cardiopulmonary process. OBSV E&M: [id number] Initial observation care L3 Procedures: 99628 Advncd Care Plan 30 Min
--- NOTE | 2019-12-22 13:40 | NURSING ---
119 MAIA CP, UNSTABLE ANGINA
[2019-12-22] MEDS: hydrALAZINE 20 MG/ML Vial 10 MG IV (13:46)
[2019-12-22] MEDS: Nitroglycerin (INPATIENT USE) 0.4 MG TAB.SUBL SUBLINGUAL (13:55)
--- NOTE | 2019-12-22 14:03 | ECHOCS_ITS ---
Reason For Study: CHF Procedure This was a 2D Doppler, Color Flow transthoracic echocardiogram. The study was technically difficult. Due to body habitus. Contrast injection was performed. Exam performed portable in ICU/CCU. Left Ventricle Normal LV size. Left ventricular systolic function is normal. The estimated ejection fraction is 70 %. No evidence for diastolic dysfunction. No regional wall motion abnormalities noted. Right Ventricle Normal RV size. Normal systolic function. Atria Normal left atrium. Normal right atrium. No doppler evidence for ASD. Mitral Valve There is no mitral annular calcification. Normal mitral valve. Trivial mitral valve insufficiency. Tricuspid Valve Normal tricuspid valve. Trivial tricuspid valve insufficiency. Unable to estimate RV systolic pressure/pulmonary artery pressure due to technically difficult study. Aortic Valve The aortic valve is not well visualized. Pulmonic Valve The pulmonic valve is not well visualized. Great Vessels Normal sized aortic root. Pericardium/Pleural No pericardial effusion. Medication Diluted definity 2.0ml given slow IV push to enhance endocardial definition. MMode/2D Measurements & Calculations LVIDd: 4.2 cm IVSd: 0.91 cm Ao root diam: 2.6 cm LVIDs: 2.4 cm LVPWd: 1.00 cm RVDd: 2.3 cm FS: 43.0 % LAV(MOD-bp): 31.7 ml LA A4 area: 12.5 cm2 LA dimension(2D): 3.0 cm LAV(MOD-bp) Indexed: 18.3 ml/m2 LAV(MOD-sp2): 33.7 ml LAV(MOD-sp4): 29.5 ml RA A4 area: 10.6 cm2 Time Measurements MV dec time: 0.27 sec Doppler Measurements & Calculations MV E max felicinao: 75.9 cm/sec Lat Peak E' Feliciano: 6.6 cm/sec Med Peak E' Feliciano: 6.4 cm/sec MV A max feliciano: 104.7 cm/sec E/E' lat: 11.5 E/E' med: 11.9 MV E/A: 0.72 Ao V2 max: 131.6 cm/sec LV V1 max: 89.4 cm/sec PA V2 max: 71.1 cm/sec Ao max P.9 mmHg LV V1 max P.2 mmHg Interpretation Summary The study was technically difficult. Contrast injection was performed. Left ventricular systolic function is normal. The estimated ejection fraction is 70 %. Trivial mitral valve insufficiency. Trivial tricuspid valve insufficiency. Unable to estimate RV systolic pressure/pulmonary artery pressure due to technically difficult study. No evidence for diastolic dysfunction. Ordering Physician: Gallito Ortega Referring Physician: Milton Kang Performed By: Tori Napoles, HECTOR, RVT
--- NOTE | 2019-12-22 14:29 | ED.VISSUMM ---
- ER Visit Summary Date of Service: 12/22/19 Chief Complaint: [Addendum to initial dictation] History of Present Illness: The patient is a 79 F [presented with chest pain that had resolved however prior to patient going up to the floor for admission she developed worsening chest pain and a repeat EKG was obtained which was unchanged from first. Patient was ordered sublingual nitroglycerin and after her first tab she started not feeling well and became tachycardic with heart rate in the 130s. Patient states that after taking nitro oftentimes will have some fluttering in her chest that typically passes very quickly. She continues to complain of pain and had a 30 EKG obtained which again looked relatively unremarkable just some minimal non-specific ST changes noted laterally. No evidence of ST elevation. With hospitalist and he is aware. Patient refused morphine. I ordered a CTA of the chest to rule out PE or dissection however patient is a very difficult IV stick and currently only has a 22-gauge IV in her hand and I am told he will not CTA her without a larger more proximal IV. There was no evidence of widened mediastinum on chest x-ray.] Hospitalist also discussed case with cardiology who will follow. Physical Examination: [] Test Results: [] Emergency Department Course and Treatment: [] Treatment Plan: [] Disposition: [Admit] Impression: [Chest pain-rule out acute coronary syndrome] This note was generated with [employer] dictation software. It may contain incorrect words, spelling, and punctuation that were not noted in review of the chart prior to signing
[2019-12-22 14:38] LABS: BNP,B-Type NATRIURETIC PEPTIDE 23.1 pg/mL (0-100)
--- NOTE | 2019-12-22 15:11 | NURSING ---
NEW ROOM GOING TO ICU CP, UNSTABLE ANGINA
[2019-12-22] MEDS: Nitroglycerin Infusion 250 ML 3 MG CONT INF (15:18)
--- NOTE | 2019-12-22 15:43 | ED.RN ---
NEW IV COMPATIBLE FOR CTA OF CHEST ATTEMPTED BY 3 RNS AND MEDIC, ULTRASOUND ATTEMPTED X2, ALL ATTEMPTS UNSUCCESSFUL. AWARE.
--- NOTE | 2019-12-22 16:45 | EKG12_ITS ---
Test Reason : CP Blood Pressure : / mmHG Vent. Rate : 107 BPM Atrial Rate : 107 BPM P-R Int : 148 ms QRS Dur : 072 ms QT Int : 336 ms P-R-T Axes : 027 -32 018 degrees QTc Int : 448 ms Sinus tachycardia with occasional Premature ventricular complexes Left axis deviation Left ventricular hypertrophy Inferior infarct , age undetermined Abnormal ECG Confirmed by IRMA LION, JEREMY ([id number]), editor producer BRIAN CORTES ([id number]) on 12/29/2019 2:44:12 PM Referred By: MARIPOSA DIAZ Confirmed By:JEREMY SOLIS MD
[2019-12-22] MEDS: Morphine 2 MG/ML Syringe IV (17:03)
[2019-12-22] MEDS: Furosemide 40 MG/4 ML Vial IV (17:08)
[2019-12-22] MEDS: Losartan Potassium 50 MG Tablet PO ×2 (17:48→23:07)
[2019-12-22] MEDS: Pramipexole Di-HCl 0.5 MG Tablet PO ×2 (17:48→23:07)
--- NOTE | 2019-12-22 17:57 | CON.PCM_ITS ---
Problem List (1) Unstable angina Status: Acute (2) CAD in [place] artery Status: Chronic (3) History of coronary artery stent placement Status: Resolved Comment: RE to RCA 07/2016; GWH-IMJ-Ziv-LAD w/ 3.0 x 34 mm Resolute Integrity Stent and RE-Prox D1 w/ 2.5 x 12 mm Resolute Integrity Stent 06/21/17; PCI/RE-ISR Prox RCA w/ 2.5 x 32 mm Promus Synegy 05/05/18; WYN-PWN-Bcjmaj D1 w/ 2.25 x 8 mm Synergy Stent and PCI-Cutting Balloon Angioplasty-ISR Ostial RCA 04/14/19 (4) Premature ventricular contractions Status: Chronic (5) SVT (supraventricular tachycardia) Status: Chronic (6) Hyperlipidemia Status: Chronic Qualifiers: Hyperlipidemia type: pure hypercholesterolemia Qualified Code(s): E78.00 - Pure hypercholesterolemia, unspecified; E78.0 - Pure hypercholesterolemia (7) Essential (primary) hypertension Status: Chronic (8) Restless leg syndrome Status: Chronic Reason for Consult Date of Consultation: 12/22/19 History of Present Illness: The patient is a 79 year [id number] white female with a past cardiovascular history which is included underlying CAD, PCI, PVC, SVT, hyperlipidemia, hypertension superimposed on restless leg syndrome who presents for concerns of unstable angina pectoris. The patient states she has been having waxing and waning chest discomfort, as if someone was sitting on her chest, for the last month. She states this is progressed more so over the last 3 to 4 days. It can be associated with the sensation of dyspnea. She has denied any ongoing nausea, emesis, diaphoresis, near-syncope, or syncope. She also denies any ongoing fever or cough. She states she contacted her PCP today. She was instructed to present to the emergency department for further evaluation. There she was noted to have a systolic blood pressure of 217 mmHg with a diastolic blood pressure of 99 mmHg. She had an initial troponin I level which was negative. Her ECG is as noted. Her chest x-ray is as noted. She subsequently received additional medical management for her ongoing chest discomfort. This has included nitroglycerin sublingual, nitroglycerin IV, and morphine sulfate. She was eventually transferred to the ICU for further evaluation and care. She states she is feeling better now. It is noted that she still remains somewhat tachyca rdic (sinus tachycardia). Her blood pressure has decreased with her most recent systolic blood pressure approximately 150 mmHg. She has been concerned that based upon her cardiovascular disease process and her symptoms that she is having recurrent issues with her CAD/stents. [] Past Medical History Allergies/Adverse Reactions: Allergies amoxicillin Allergy (Verified 04/30/19 08:05) projectile vomiting diazepam [From Valium] Allergy (Verified 12/22/19 10:37) SEIZURES gabapentin Allergy (Verified 12/22/19 10:37) HYPER promethazine Allergy (Verified 12/22/19 10:37) PT UNSURE OF REACTION zolpidem Allergy (Verified 12/22/19 10:37) INSOMNIA Home Medications: Ambulatory Orders Medication Instructions Recorded Metoprolol Succinate 100 mg PO DAILY 06/20/17 Pantoprazole Sodium [Protonix] 40 mg PO DAILY 06/20/17 Triamterene/Hydrochlorothiazid 1 ea PO DAILY 06/20/17 [Triamterene-Hctz 37.5-25 mg Cp] Oxycodone [Oxyfast] 10 mg PO TID 06/21/17 Aspirin [Aspirin, Baby] 81 mg PO DAILY@0800 05/05/18 amlodipine 10 mg tablet 10 mg PO DAILY #30 tab 04/02/19 atorvastatin 20 mg tablet 20 mg PO DAILY #30 tab 04/27/19 clopidogrel 75 mg tablet 75 mg PO DAILY #30 tab 04/27/19 isosorbide mononitrate 60 mg 60 mg PO DAILY #30 tab 04/27/19 tablet,extended release 24 hr candesartan 8 mg tablet 8 mg PO DAILY #90 tab 04/30/19 Ropinirole HCl [Requip] 1 mg PO TID 12/22/19 Past Medical History (Chronic Problems): Chronic Problems (Last Reviewed 04/30/19 @ 10:[address] 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 Skyler Jordan MD) Father CAD (coronary artery disease) Hypertension CVA (cerebral vascular accident) CHF (congestive heart failure) Mother CAD (coronary artery disease) Hypertension Lung cancer History Items: Heart Disease Paternal Family History: Family History (Last Reviewed 04/30/19 @ 10:[address] Skyler Jordan MD) Father CAD (coronary artery disease) Hypertension CVA (cerebral vascular accident) CHF (congestive heart failure) Mother CAD (coronary artery disease) Hypertension Lung cancer History Items: Heart Disease Smoking Status: Never smoker Review of Systems - Review of Systems General: Denies: Fever, Night Sweats, Fatigue Cardiovascular: Reports: Chest Discomfort, Chest Discomfort at Rest, Shortness of Breath, Shortness of Breath at Rest. Denies: Orthopnea, PND, Peripheral Edema, Palpitations, Lightheadedness, Dizziness, Near Syncope, Syncope Respiratory: Reports: Shortness of Breath. Denies: Cough, Sputum Production, Hemoptysis Gastrointestinal: Denies: Hematemesis, Hematochezia, Melena Genitourinary: Denies: Dysuria, Hematuria Skin: Denies: Rash Subjectve: This is a 79-year-old white female who appears to be resting reasonably comfortable, separate from her restless leg syndrome, at this time and in no acute distress. Objective: Vital Signs Temp Pulse Resp BP Pulse Ox 97 F L 119 H 20 H 153/83 H 100 12/22/19 16:48 12/22/19 17:31 12/22/19 17:31 12/22/19 17:31 12/22/19 17:31 Oxygen Flow Rate (L/min) 2 Oxygen Delivery Method Nasal Cannula Weight: 138 lb 7.205 oz Body Mass Index (BMI) 23.0 Intake and Output for Last 24 Hours 12/20/19 12/21/19 12/22/19 23:59 23:59 23:59 Intake Total 3.3 / 3.3 Balance 3.3 / 3.3 General: Awake, Alert, Oriented x 3, Cooperative, No Acute Distress HEENT: Atraumatic, Normocephalic, PERRL, EOMI, Sclera Non Icteric Oral: Moist Mucosa Neck: Supple, Good ROM, No JVD Lungs: Clear to auscultation Cardiovascular: Regular Rhythm, Normal S1, Normal S2 Abdomen: Bowel Sounds Present, Soft, Non Tender Extremities: No edema Psych/Mental Status: Anxious 12/22/19 11:05: WBC 5.4, RBC 4.59, Hgb 13.6, Hct 42.7, MCV 93.0, MCH 29.6, MCHC 31.9 L, Plt Count 326, MPV 9.3, Immature Gran % (Auto) 0.400, Neut % (Auto) 54.4, Lymph % (Auto) 38.8, [place] % (Auto) 4.7, Eos % (Auto) 1.1, Baso % (Auto) 0.6, Absolute Neuts (auto) 2.9, Nucleated RBC % 0 12/22/19 11:05: Sodium Cancelled, Potassium Cancelled, Chloride Cancelled, Carbon Dioxide Cancelled, Anion Gap Cancelled, BUN Cancelled, Creatinine Cancelled, Est GFR (MDRD) Af Amer Cancelled, Est GFR (MDRD) Non-Af Cancelled, BUN/Creatinine Ratio Cancelled, Glucose Cancelled, Calcium Cancelled, Troponin I Cancelled 12/22/19 11:05: B-Natriuretic Peptide 23.1 12/22/19 11:55: Sodium 139, Potassium 4.4, Chloride 107, Carbon Dioxide 27.0, Anion Gap 5, BUN 14, Creatinine 0.71, Est GFR (MDRD) Af Amer 102, Est GFR (MDRD) Non-Af 84, BUN/Creatinine Ratio 19.7, Glucose 105, Calcium 9.4, Troponin I < 0.015 Rhythm: Sinus rhythm/sinus tachycardia EKG: Sinus tachycardia; left axis deviation; consider voltage criteria for LVH; inferior PR of indeterminate age cannot be excluded Cardiac Cath: 04-14-2019 CONCLUSIONS Ostial first diagonal lesion with high-grade stenosis, previously placed stent in the left anterior descending artery is patent, previously placed stent in the right coronary artery is patent but with ostial and proximal 60% stenosis. RECOMMENDATIONS In light of persistent angina with exertion and rest decision was made to attempt angioplasty of the diagonal vessel and to the proximal right coronary artery. This is despite a recently normal normal pharmacologic myocardial perfusion stress test. Above discussed with patient who is in agreement. DESCRIPTION OF PROCEDURE The patient arrived to the procedure lab. The risks and benefits of the procedure as well as a full description of our services here and current unavailability of surgical backup were fully explained to the patient and/or their significant other prior to the catheterization. The Timeout was completed, verifying the correct patient and procedure. The patient's procedural site was prepped and draped in the usual fashion. Local anesthetic was given subcutaneously to right groin region with Lidocaine 2%. Using a modified Seldinger technique, arterial access was obtained via the right femoral artery, a 5Fr sheath was inserted. Left Coronary Artery selective angiography was performed in multiple views using a 5 Fr. JL4 catheter. Right Coronary Artery selective angiography was then performed in multiple views using a 5 Fr. 3DRC (Gurwinder) catheter. Right Coronary Artery selective angiography was then performed in multiple views using a 5 Fr. JR 4 catheter. Left Ventriculography was performed in BOUDREAUX projection using a 5 Fr. Pigtail catheter. LV to AO pullback pressures were then recorded. CORONARY ANGIOGRAPHY DOMINANCE: Right Dominant LEFT HEART ASSESSMENT Left Ventricular Ejection Fraction: by LV Gram 65 % Normal Left Ventricular systolic function LEFT MAIN: Non-obstructive LEFT ANTERIOR DESCENDING ARTERY: PROX LAD: Previously placed stent is patent DIAGONAL 1: Ostial - 95 % Stenosis CIRCUMFLEX ARTERY: MID CIRC: Non-obstructive RAMUS: Mild luminal irregularities RIGHT CORONARY ARTERY: Previously placed stent has an instent 60 % restenosis MID RCA: Previously placed stent is patent DISTAL RCA: Mild luminal irregularities PCI: 04-14-2019 CONCLUSIONS Successful PCI of ISR of RCA with angiosculpt balloon. Successful PTCA and RE to ostial D1. CXR: Preliminary evaluation: No acute cardiopulmonary disease process appreciated: Please see official report Assessment/Plan 1. Unstable angina pectoris The patient presents with symptoms concerning for accelerating/unstable angina pectoris. She has undergone evaluation. Thus far her initial troponin I level is negative. Her initial ECG is as noted. She is continuing medical therapy. This includes a combination of aspirin and antiplatelet agents as well as IV nitroglycerin, beta-blockers, afterload reducing agents, lipid-lowering agents, etc. She is also received anticoagulants. Based upon her clinical history, ongoing concerns, etc. it be reasonable to consider her for further evaluation. From a noninvasive standpoint this could include an echocardiogram to reassess her left ventricular wall motion and systolic function. However, she should also be considered for further evaluation with diagnostic cardiac catheterization. The procedure and risks were discussed with her. She was agreeable to this approach. 2. CAD status post PCI She does have an extensive underlying CAD history and PCI history. Her most recent studies are as noted. She will continue evaluation care as noted above. 3. PVCs She has a history of PVCs. At the present time she remains in sinus rhythm/sinus tachycardia. She will continue beta-rodrigo therapy. 4. PSVT There is a report that she has a history of PSVT. At the present time she remains in sinus rhythm/sinus tachycardia. She will continue her beta-rodrigo therapy. 5. Hyperlipidemia She will continue risk factor evaluation/medical therapy as deemed appropriate. 6. Hypertension Her blood pressure was markedly elevated upon arrival at the hospital. It is unclear whether this may be the inciting factor for her chest discomfort versus is is secondary to her ongoing chest discomfort. At the present time she has been treated medically. The IV nitroglycerin appears to be assisting with helping to bring her blood pressure under better control. As her blood pressure is decreased she appears to be feeling better. Her medications will be adjusted to try and bring her blood pressure under bett er control. 7. Restless leg syndrome She does have restless leg syndrome. She takes medication for. She states she has not received her medication this day. She is going to be receiving at as it has been ordered by her hospitalist. Overall the present time the patient will continue in the ICU, she will continue with medical therapy to assist with her ongoing issues, she will continue with plans for both noninvasive and invasive evaluation as noted above. The patient's case was discussed and reviewed with Dr. Maddox of the [facility] emergency department staff, Dr. Ortega [facility] hospital staff, and the patient's primary sagger soak Dr. Jordan. This note was generated using a voice recognition system and there may be incorrect words, spelling or punctuation that were not noted when reviewing the office note prior to saving. Essential Procedure Criteria Procedure Essential: Yes Criteria Note: On 10/20/2019 the [facility] of Health ([facility]) Public Order signed by [facility] Director Lexy Esparza M.D., regarding the Management of Non- Essential Surgeries and Procedures for the purpose of preserving Personal Protective Equipment (PPE) and critical hospital capacity and resources within [place] went into effect as of 10/21/2019 at 5:00PM. According to the [facility] Public Order: This action will remain in full force and effect until the State of Emergency declared by the Governor no longer exists or the Director of the [facility] rescinds or modifies this Order.. This [facility] order stated all non-essential or elective surgeries and procedures that utilize PPE should be delayed unless there is undue risk to the current or future health of a patient. After reviewing the aforementioned [facility] Public Order and the patients clinical case, I have determined that the scheduled procedure meets the criteria to go forward. Risk to Patient if Procedure Delayed: Risk of rapidly worsening to severe symptoms if delayed - Accelerating/unstable angina pectoris
[2019-12-22] MEDS: Enoxaparin 40 MG/0.4 ML Syringe SC (17:58)
[2019-12-22] MEDS: 0.9% Normal Saline 1,000 ML 30 ML IV (20:02)
[2019-12-22] MEDS: oxyCODONE 5 MG Tablet 10 MG PO (23:06)
[2019-12-22] MEDS: Metoprolol Tartrate 50 MG Tablet PO (23:07)
[2019-12-22] MEDS: Atorvastatin Calcium 20 MG Tablet PO (23:07)
[2019-12-23] VITALS (31 sets, daily range): BP systolic 81–191; BP diastolic 41–93; PULSE 63–84; RESP 11–17; TEMP 36.3–36.7; O2SAT 2–100
--- NOTE | 2019-12-23 05:55 | EKG12_ITS ---
Test Reason : CP Blood Pressure : / mmHG Vent. Rate : 085 BPM Atrial Rate : 085 BPM P-R Int : 156 ms QRS Dur : 068 ms QT Int : 346 ms P-R-T Axes : 029 -21 017 degrees QTc Int : 411 ms Normal sinus rhythm Right atrial enlargement Inferior infarct , age undetermined Abnormal ECG Confirmed by IRMA LION, JEREMY ([id number]), graphics editor BRIAN CORTES ([id number]) on 12/29/2019 2:48:41 PM Referred By: Confirmed By:JEREMY SOLIS MD
[2019-12-23] MEDS: oxyCODONE 5 MG Tablet 10 MG PO ×2 (06:25→14:18)
[2019-12-23] MEDS: Pramipexole Di-HCl 0.5 MG Tablet PO ×2 (06:25→14:19)
[2019-12-23] MEDS: Ondansetron 4 MG/2 ML Vial IV ×2 (06:29→14:19)
[2019-12-23 07:01] LABS: Cholesterol 207 mg/dL (200); High Density Lipoprotein 64 mg/dL; Thyroid Stim Hormone (TSH) 0.64 uIU/mL (0.358-3.74); Triglycerides 181 mg/dL; Very Low Density Lipoprotein 36 mg/dL (5-40)
[2019-12-23] MEDS: amLODIPine 10 MG Tablet PO (09:49)
[2019-12-23] MEDS: Aspirin E.C. 81 MG Tablet PO (09:49)
[2019-12-23] MEDS: Metoprolol Tartrate 50 MG Tablet PO (09:49)
[2019-12-23] MEDS: Losartan Potassium 50 MG Tablet PO (09:50)
[2019-12-23] MEDS: Clopidogrel Bisulfate 75 MG Tablet PO (09:50)
[2019-12-23] MEDS: Pantoprazole Sodium 40 MG Tablet PO (09:51)
--- NOTE | 2019-12-23 12:40 | PN.CARD_ITS ---
Subjectve: Patient seen and evaluated. Underwent cardiac catheterization today. Objective: Vital Signs Temp Pulse Resp BP Pulse Ox 98.1 F 68 16 160/63 H 98 12/23/19 10:00 12/23/19 10:29 12/23/19 10:29 12/23/19 10:29 12/23/19 10:29 Oxygen Flow Rate (L/min) 2 Oxygen Delivery Method Nasal Cannula Weight: 143 lb 4.807 oz Body Mass Index (BMI) 23.0 Intake and Output for Last 24 Hours 12/21/19 12/22/19 12/23/19 23:59 23:59 23:59 Intake Total 1171.4 / 1411.4 860 / 860 Output Total 750 / 900 450 / 450 Balance 421.4 / 511.4 410 / 410 General: Awake, Alert, Oriented x 3 HEENT: PERRL, EOMI, Sclera Non Icteric Neck: Supple, Good ROM, No Lymph Node Enlargement Lungs: Clear to auscultation Cardiovascular: Regular Rhythm, Normal S1, Normal S2, No Murmurs, No Rubs, No Gallops Vascular: No Carotid Bruits, Normal Femoral Pulses, Normal Radial Pulses, Normal Dorsalis Pedal Pulse, Normal Posterior Tibial Pulses Abdomen: Bowel Sounds Present, Soft, Non Tender, No HSM, No Organomegaly Extremities: No Cyanosis, No Clubbing, No edema Musculoskeletal: No Erythema Skin: No Rashes Lymphatic: No Lymph Node Enlargement Neurological: No Focal Motor or Sensory Deficit Psych/Mental Status: Appropriate 12/22/19 11:05: B-Natriuretic Peptide 23.1 12/22/19 19:30: Troponin I < 0.015 12/22/19 22:30: Troponin I < 0.015 12/23/19 01:50: Troponin I < 0.015 12/23/19 05:25: Triglycerides 181, Cholesterol 207 H, LDL Cholesterol 107, VLDL Cholesterol 36, HDL Cholesterol 64 12/23/19 05:25: Troponin I < 0.015 Rhythm: EKG: ECHO: Stress Test: Cardiac Cath: PCI: CT Surgery: Holter monitor: EPS: PPM: CXR: Chest CT Scan: Medical Necessity - Tobacco Use Smoking Status: Never smoker Assessment/Plan 1. Unstable angina pectoris The patient presents with symptoms concerning for accelerating/unstable angina pectoris. She underwent a cardiac catheterization today which demonstrated patency of all her stents. There was moderate disease noted in the ostial of the first diagonal vessel but unchanged from when she had her PCI. I suspect that her symptoms are secondary to her very elevated blood pressure. * Would recommend optimization of her medical therapy. No PCI needs to be undertaken at this time. 2. CAD status post PCI She does have an extensive underlying CAD history and PCI history. The results are as noted above. 3. Hyperlipidemia She will continue risk factor evaluation/medical therapy as deemed appropriate. 4. Hypertension Her blood pressure was markedly elevated upon arrival at the hospital. It is unclear whether this may be the inciting factor for her chest discomfort versus is is secondary to her ongoing chest discomfort. At the present time she has been treated medically. The IV nitroglycerin appears to be assisting with helping to bring her blood pressure under better control. As her blood pressure is decreased she appears to be feeling better. Her medications will be adjusted to try and bring her blood pressure under better control.
--- NOTE | 2019-12-23 12:57 | CL.D_ITS ---
Patient Name: TREE HAMMONDS Study Date: 12/23/2019 Performing: Skyler Jordan MD Ht: 64.96 inches 165 cm : 1940 Wt: 143.3 lbs 65 kg Age: 79 Gender: female BSA: 1.72 PROCEDURE(S) PERFORMED [id number]/LV CLINICAL PROFILE AND INDICATIONS Indications: Suspected CAD Heart Failure: None Stress/Imaging Stress/Image Study Performed: No CAD Presentations: Unstable angina. CONCLUSIONS Coronary artery disease involving the ostial diagonal vessel. The LAD and previously placed diagonal stent as well as the right coronary artery appeared to be patent. RECOMMENDATIONS Medical therapy DESCRIPTION OF PROCEDURE The patient arrived to the procedure lab. The risks and benefits of the procedure as well as a full d escription of our services here and current unavailability of surgical backup were fully explained to the patient and/or their significant other prior to the catheterization. The Timeout was completed, verifying the correct patient and procedure. The patient's procedural site was prepped and draped in the usual fashion. Local anesthetic was given subcutaneously to right groin region with Lidocaine 2%. Using a modified Seldinger technique, arterial access was obtained via the right femoral artery, a 5 Fr sheath was inserted. Left Coronary Artery selective angiography was performed in multiple views u sing a 5 Fr. JL4 catheter. Right Coronary Artery selective angiography was then performed in multiple views using a 5 Fr. 3DRC (Gurwinder) catheter. Left Ventriculography was performed in BOUDREAUX projection using a 5 Fr. Pigtail catheter. LV to AO pullback pressures were then recorded.The arterial sheath was pulled and manual compression applied until hemostasis is achieved. CORONARY ANGIOGRAPHY DOMINANCE: Right Dominant LEFT HEART ASSESSMENT Left Ventricular Ejection Fraction: by LV Gram 60 % Normal LV wall motion Normal Left Ventricular systolic function LEFT MAIN: Angiographically normal LEFT ANTERIOR DESCENDING ARTERY: MID LAD: Previously placed stent is patent DIAGONAL 1: Ostial - 70 % Stenosis CIRCUMFLEX ARTERY: Mild luminal irregularities less than 30% RAMUS: Moderate luminal irregularities up to 50% RIGHT CORONARY ARTERY: PROX RCA: Previously placed stent is patent COMPLICATIONS No Complications PROCEDURE MEDICATIONS Versed 1 mg IV Fentanyl 50 mcg IV Versed 1 mg IV Versed 1 mg IV Oxygen: 2 L/min via nasal cannula SUMMARY OF HEMODYNAMIC DATA Time AIR REST ECG 11:52:53 AO 195/82 (130) SA 12:22:46 LV 205/7, 22 12:30:15 LV 200/8, 20 12:30:21 LV 191/11, 21 12:30:58 LVp 177/9, 19 12:31:02 AOp 0/-58 (63) 12:31:07 Signed By Skyler Jrodan MD On 12/23/2019 12:55:55 Skyler Jordan MD
[2019-12-23] MEDS: Morphine 2 MG/ML Syringe IV (13:28)
--- NOTE | 2019-12-23 13:53 | DCINST_ITS ---
- Discharge Diagnoses Current Active Problems: Current Active and Chronic Problems (Last Reviewed 04/30/19 @ 10:[address] Skyler Jordan MD) Atypical chest pain (Acute) Unstable angina (Acute) CAD in [place] artery (Chronic) Restless leg syndrome (Chronic) You will use the following diet at home:: Cardiac Your food should be the consistency of: Regular Your liquids should be the consistency of: Regular/Thin Discharge Activity: May Not Drive Call your doctor if you observe: Fever of 101 or Higher, Numbness or Tingling, Change in Color, Inability to urinate, Inability to have a bowel movement, Using more than one pad per hour, Shortness of breath, Dizziness, Fainting spells, Swelling in the ankles, Chest pain, Calf discomfort, Uncontrolled pain Allergies/Adverse Reactions: Allergies amoxicillin Allergy (Verified 04/30/19 08:05) projectile vomiting diazepam [From Valium] Allergy (Verified 12/22/19 10:37) SEIZURES gabapentin Allergy (Verified 12/22/19 10:37) HYPER promethazine Allergy (Verified 12/22/19 10:37) PT UNSURE OF REACTION zolpidem Allergy (Verified 12/22/19 10:37) INSOMNIA Medications to take at Discharge Pantoprazole Sodium [Protonix] 40 mg PO DAILY 06/20/17 Triamterene/Hydrochlorothiazid [Triamterene-Hctz 37.5-25 mg Cp] 1 ea PO DAILY 06/20/17 Oxycodone [Oxyfast] 10 mg PO TID 06/21/17 Aspirin [Aspirin, Baby] 81 mg PO DAILY@0800 05/05/18 amlodipine 10 mg tablet 10 mg PO DAILY #30 tab 04/02/19 clopidogrel 75 mg tablet 75 mg PO DAILY #30 tab 04/27/19 isosorbide mononitrate 60 mg tablet,extended release 24 hr 60 mg PO DAILY #30 tab 04/27/19 Ropinirole HCl [Requip] 1 mg PO TID 12/22/19 Atorvastatin Calcium 40 mg PO QHS #30 tab 12/23/19 Candesartan Cilexetil 16 mg PO DAILY #30 tab 12/23/19 Metoprolol Tartrate [Lopressor (beta rodrigo)] 100 mg PO BID #60 tab 12/23/19 The following prescriptions were given: Atorvastatin Calcium 40 mg PO QHS #30 tab Transmission Status: Pending to [id number] Candesartan Cilexetil 16 mg PO DAILY #30 tab Transmission Status: Pending to [id number] Metoprolol Tartrate [Lopressor (beta rodrigo)] 100 mg PO BID #60 tab Transmission Status: Pending to [id number] Primary Care Physician: Milton Kang MD [Primary Care Provider] - Please follow up with your Primary Care Physician in: in 2 weeks Test Results: Test results from this visit will be discussed in further detail at your follow- up appointment, if applicable. Please Follow Up With: Skyler Jordan MD When: in 3-4 weeks
--- NOTE | 2019-12-23 13:54 | PCM.DC.SUM ---
Discharge Date and Diagnosis - Problem List Patient Problems: Active and Suspected Problems (Last Reviewed 04/30/19 @ 10:[address] Skyler Jordan MD) Atypical chest pain (Acute) Unstable angina (Acute) Date of Admission: 12/22/19 Date of Discharge: 12/23/19 - Primary Discharge Diagnosis Acute Problems: Active Problems (Last Reviewed 04/30/19 @ 10:[address] Skyler Jordan MD) Atypical chest pain (Acute) Unstable angina (Acute) - Secondary Discharge Diagnosis Chronic Problems: Chronic Problems (Last Reviewed 04/30/19 @ 10:[address] 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 In ED, her blood pressure was elevated 185/90 heart rate 86/min. Patient had 10 mg of IV hydralazine. EKG done from EMS and ER reviewed. Shows normal sinus rhythm at 85 bpm with RAD, old inferior infarct and LAD. No significant EKG change from the previous EKG of April 2019. 1. Atypical chest pain suggestive of unstable angina with history of coronary artery disease and stents: Patient was admitted in ICU on nitroglycerin drip. Discussed with cardiology. Patient had serial troponin test which were negative. Subsequently patient went to cardiac cath today. Cardiac cath shows moderate stenosis of ostial D1 but unchanged from the previous PCI. Synthetic Filament Spinner recommended optimal control of her blood pressure and medications. Metoprolol increased to 100 mg twice daily, candesartan 16 mg daily. She is already on maximum dose of triamterene/HCTZ, 37.5 mg - 25 mg once daily. Isosorbide mononitrate 60 mg daily along with aspirin and Plavix. Repeat EKG does not show any significant ST-T abnormality. [place] ruled out. Patient also had 2D echo done. Left ventricular systolic function is normal. The estimated ejection fraction is 70 %. Trivial mitral valve insufficiency. Trivial tricuspid valve insufficiency. Unable to estimate RV systolic pressure/pulmonary artery pressure due to technically difficult study. No evidence for diastolic dysfunction. She had cardiac cath in April 2019 and was found to have EF 65% with normal LV systolic function. Diagonal 1 ostial 95% stenosis, and previous stents in proximal LAD patent, RCA in-stent 60% stenosis, and angioplasty with stenting of RCA and first diagonal vessels. []Her last echo in 2016 from [place] shows EF 60 to 65% with impaired LV diastolic function. Patient is on aspirin, Plavix, isosorbide mononitrate 60 mg daily, and metoprolol. 2. Mild lower extremity edema: BNP 23. EF 70%. No evidence of diastolic dysfunction. Normal left and right atrium normal LV size and RV size. 3. Uncontrolled hypertension: Blood pressure was controlled with IV nitroglycerin drip, and 1 dose of hydralazine IV. Rest as mentioned above 4. Other comorbidities include history of SVT/PVC, dyslipidemia, degenerative joint disease and restless leg syndrome: Multiple comorbidities complicates the present care and expect difficult and delay recovery DVT prophylaxis: On Lovenox 40 mg subcu daily. Discharge medication reconciliation done. Discharge follow-up instructions completed. Discharge process discussed with the patient and all questions were answered to patient's satisfaction. Maintain protocol after sheath removal for at least 4 hours of bedrest. Total time spent, exact 35 minutes on discharge meds reconciliation, examination, coordination of care with nurses and ancillary staff, review of imaging and blood test and discussion with the patient on follow-up instructions Patient Problems: Active and Suspected Problems (Last Reviewed 04/30/19 @ 10:[address] Skyler Jordan MD) Atypical chest pain (Acute) Unstable angina (Acute) Objective: Seen and examined. Patient blood pressure fluctuated but was controlled yesterday evening and then it dropped to 81/41 and recovered. Patient was n.p.o. and had heart cath in the morning. Subsequently her blood pressure again went up to 191/93 which was controlled on p.o. medication HCTZ and losartan. Chest pain/angina pectoris resolved last night. On physical exam General: Alert, Oriented x3, Cooperative HEENT: Atraumatic, PERRLA, EOMI, Normocephalic Neck: Supple, No JVD, Negative Carotid Bruits Lungs: Clear to auscultation, Normal air movement, No rhonchi, No wheeze, No rales Cardiovascular: Regular rate, Regular Rhythm, Normal S1, Normal S2, No murmurs Abdomen: Bowel Sounds Present, Soft, Non Tender, Non-Distended Extremities: No edema, Capillary Refill Less than 3 Seconds Skin: No rashes, No breakdown Musculoskeletal: No Tenderness to Palpation of Joints or Extremities Neurological: Cranial nerves II-XII grossly intact, Neuro grossly intact Psych/Mental Status: Normal Affect, Appropriate - Physical Exam Vitals/I&O's: Vital Signs Temp Pulse Resp BP Pulse Ox 98.1 F 76 15 167/77 H 100 12/23/19 10:00 12/23/19 13:45 12/23/19 13:45 12/23/19 13:45 12/23/19 13:45 Oxygen Flow Rate (L/min) 2 Oxygen Delivery Method Nasal Cannula Weight: 143 lb 4.807 oz Body Mass Index (BMI) 23.0 Intake and Output for Last 24 Hours 12/21/19 12/22/19 12/23/19 23:59 23:59 23:59 Intake Total 1171.4 / 1411.4 860 / 860 Output Total 750 / 900 450 / 450 Balance 421.4 / 511.4 410 / 410 Laboratory Results 12/22/19 11:05: B-Natriuretic Peptide 23.1 12/22/19 19:30: Troponin I < 0.015 12/22/19 22:30: Troponin I < 0.015 12/23/19 01:50: Troponin I < 0.015 12/23/19 05:25: Triglycerides 181, Cholesterol 207 H, LDL Cholesterol 107, VLDL Cholesterol 36, HDL Cholesterol 64, TSH 0.64 12/23/19 05:25: Troponin I < 0.015 Current Medications Acetaminophen (Tylenol) 650 mg PO Q6H PRN PRN PRN Reason: Pain Score 1-10/Temp > 100.7 F Al Hydroxide/Mg Hydroxide (Mylanta Ii) 30 ml PO Q6H PRN PRN PRN Reason: Gastric Burning Albuterol Sulfate (Ventolin Aerosols) 2.5 mg INHALATION Q2H PRN PRN PRN Reason: SOB/Wheezing Amlodipine Besylate (Norvasc) 10 mg PO DAILY [facility] Last Admin: 12/23/19 09:49 Dose: 10 mg Documented by: Aspirin (Ecotrin) 81 mg PO DAILY@0800 [facility] Last Admin: 12/23/19 09:49 Dose: 81 mg Documented by: Atorvastatin Calcium (Lipitor) 20 mg PO QHS [facility] Last Admin: 12/22/19 23:07 Dose: 20 mg Documented by: Clopidogrel Bisulfate (Plavix) 75 mg PO DAILY [facility] Last Admin: 12/23/19 09:50 Dose: 75 mg Documented by: Dextrose (D50w Syringe) 0 gm IV X1 PRN; Protocol PRN Reason: Hypoglycemia Enoxaparin Sodium (Lovenox) 40 mg SC DAILY [facility] Last Admin: 12/23/19 09:51 Dose: Not Given Documented by: Glucagon () 1 mg IM .X1 PRN PRN Reason: Hypoglycemia Heparin Sodium (Beef Lung) (Heparin 500 Unit/5 Ml (100/Ml)) 500 unit IV UD PRN PRN Reason: HEPARIN FLUSH Hydralazine HCl (Apresoline Iv) 10 mg IV Q4H PRN PRN PRN Reason: sbp>180mmhg Last Admin: 12/22/19 13:46 Dose: 10 mg Documented by: Hydrochlorothiazide (Hctz) 25 mg PO DAILY [facility] Last Admin: 12/23/19 09:50 Dose: Not Given Documented by: Sodium Chloride () 1,000 mls @ 30 mls/hr IV .[id number] [facility] Last Admin: 12/22/19 20:02 Dose: 30 mls/hr Documented by: Sodium Chloride () 250 mls @ 15 mls/hr IV .[id number] PRN PRN Reason: Saline Flush Sodium Chloride () 250 mls @ 15 mls/hr IV .[id number] PRN PRN Reason: Additional IVPB Infusion Sodium Chloride () 1,000 mls @ 15 mls/hr IV .Q48H [facility] Last Admin: 12/23/19 06:27 Dose: Not Given Documented by: Isosorbide Mononitrate (Imdur) 60 mg PO DAILY [facility] Labetalol HCl (Trandate) 5 mg IV X1 PRN PRN Reason: SBP > 160 prior to sheath pull Stop: 12/25/19 12:42 Losartan Potassium (Cozaar) 50 mg PO BID [facility] Last Admin: 12/23/19 09:50 Dose: 50 mg Documented by: Metoprolol Tartrate (Lopressor (Beta Angel)) 100 mg PO BID [facility] Morphine Sulfate () 2 mg IV Q3H PRN PRN PRN Reason: Pain Score 6-10/10 Last Admin: 12/23/19 13:28 Dose: 2 mg Documented by: Ondansetron HCl (Zofran) 4 mg IV Q8H PRN PRN PRN Reason: NAUSEA/VOMITING Last Admin: 12/23/19 06:29 Dose: 4 mg Documented by: Oxycodone HCl (Oxyir) 10 mg PO TID [facility] Last Admin: 12/23/19 06:25 Dose: 10 mg Documented by: Oxycodone HCl (Oxyir) 5 mg PO Q4H PRN PRN PRN Reason: Pain Score 4-5/10 Pantoprazole Sodium (Protonix) 40 mg PO DAILY [facility] Last Admin: 12/23/19 09:51 Dose: 40 mg Documented by: Pramipexole Dihydrochloride (Mirapex) 0.5 mg PO TID [facility] Last Admin: 12/23/19 06:25 Dose: 0.5 mg Documented by: Psyllium Hydrophilic Mucilloid (Metamucil) 1 packet PO DAILY PRN PRN PRN Reason: Constipation Senna/Docusate Sodium (Senokot-S, Silvia-Colace) 2 tablet PO BID PRN PRN PRN Reason: Constipation Sodium Chloride () 10 - 40 ml IV UD PRN PRN Reason: SALINE FLUSH Discharge Activity: May Not Drive Call your doctor if you observe: Fever of 101 or Higher, Numbness or Tingling, Change in Color, Inability to urinate, Inability to have a bowel movement, Using more than one pad per hour, Shortness of breath, Dizziness, Fainting spells, Swelling in the ankles, Chest pain, Calf discomfort, Uncontrolled pain Home Medications: Medications to take at Discharge Pantoprazole Sodium [Protonix] 40 mg PO DAILY 06/20/17 Triamterene/Hydrochlorothiazid [Triamterene-Hctz 37.5-25 mg Cp] 1 ea PO DAILY 06/20/17 Oxycodone [Oxyfast] 10 mg PO TID 06/21/17 Aspirin [Aspirin, Baby] 81 mg PO DAILY@0800 05/05/18 amlodipine 10 mg tablet 10 mg PO DAILY #30 tab 04/02/19 clopidogrel 75 mg tablet 75 mg PO DAILY #30 tab 04/27/19 isosorbide mononitrate 60 mg tablet,extended release 24 hr 60 mg PO DAILY #30 tab 04/27/19 Ropinirole HCl [Requip] 1 mg PO TID 12/22/19 Atorvastatin Calcium 40 mg PO QHS #30 tab 12/23/19 Candesartan Cilexetil 16 mg PO DAILY #30 tab 12/23/19 Metoprolol Tartrate [Lopressor (beta angel)] 100 mg PO BID #60 tab 12/23/19 Following Prescrptions Were Given to Patient: Atorvastatin Calcium 40 mg PO QHS #30 tab Transmission Status: Received by [id number] Candesartan Cilexetil 16 mg PO DAILY #30 tab Transmission Status: Received by [id number] Metoprolol Tartrate [Lopressor (beta angel)] 100 mg PO BID #60 tab Transmission Status: Received by [id number] Primary Care Physician: Milton Kang MD [Primary Care Provider] - Please follow up with your Primary Care Physician in: in 2 weeks Please Follow Up With: Skyler Jordan MD When: in 3-4 weeks Medical Necessity - Tobacco Use Smoking Status: Never smoker Meaningful Use Info Meaningful Use Diagnoses (Choose all that apply): None applicable Inpatient E&M: [id number] [facility]
[2019-12-23] MEDS: hydroCHLOROthiazide 25 MG Tablet PO (14:16)
[2019-12-23] MEDS: Mag Hydrox/Al Hydrox/Simeth 30 ML UDC PO (18:22)
--- NOTE | 2019-12-23 18:30 | NURSING ---
discharged with instructions& belongings per wheelchair in care of
== END 2019-12-23 18:45 | disposition home or self-care (01) ==
LOC: ED 12:25 → PCU 13:18 → ICU 23:48
PROVIDERS: Internal Medicine Cardiovascular Disease; Admitting Provider Internal Medicine; Emergency Provider Emergency Medicine; PCP Family Medicine; Visit Provider Internal Medicine
DX: I25.110 Atherosclerotic heart disease of native coronary artery with unstable angina pectoris (principal); Z79.899 Other long term (current) drug therapy; Z79.02 Long term (current) use of antithrombotics/antiplatelets; Z79.82 Long term (current) use of aspirin; Z95.5 Presence of coronary angioplasty implant and graft; R94.31 Abnormal electrocardiogram [ECG] [EKG]; E78.5 Hyperlipidemia, unspecified; I10 Essential (primary) hypertension; I47.1 Supraventricular tachycardia; G25.81 Restless legs syndrome; I49.3 Ventricular premature depolarization; I08.1 Rheumatic disorders of both mitral and tricuspid valves
CPT/HCPCS: 71045; 80048; 80061; 83880; 84443; 84484; 85025; 93005; 93306; 93458; 96361; 96372; 96374; 96375; 96376; 99152; 99153; 99218; 99251; 99285; J7030; J7040; Q9957; A4216; C1769; C8929; G0378; G0463; J1940; J2405; Q9967

== ENCOUNTER → 2020-02-08 07:39 | Outpatient (CLI) | payer MEDICARE, SELFPAY ==
[2019-04-14 11:09] VITALS: BMI 25.7
[2020-01-27 11:34] VITALS: BMI 23.6
--- NOTE | 2020-02-08 07:42 | RDU_ITS ---
Reason For Study: HTN Right Renal Artery Left Renal Artery Right renal artery ostium 88.7/19.4 Left renal artery ostium 116.4/24.6 RSV/EDV. PSV/EDV. Right renal artery proximal Left renal artery proximal PSV/EDV 136.2/30.3 PSV/EDV. 119.8/29.4 . Right renal artery mid 183/35.2 Left renal artery mid 87.45/19 PSV/EDV. PSV/EDV . Right renal artery distal 74.7/18.8 Left renal artery distal 102.9/20.4 PSV/EDV. PSV/EDV. Right RAR 2.78. Left RAR 1.82. Right Renal Parenchyma Left Renal Parenchyma Upper Pole Medula 34.8/9 PSV/EDV. Left upper pole medulla 26.9/6.5 Right upper pole medulla EDR 0.26 . PSV/EDV . Right upper pole medulla R.I. Left upper pole medulla EDR 0.24 . 0.743 . Left upper pole medulla R.I. 0.76 . Upper Doug Cortx 20/6.5 PSV/EDV. UP Cortex 15.9/5.4 PSV/EDV. Right upper pole cortex EDR 0.33 . Left upper pole cortex EDR 0.34 . Right upper pole cortex R.I. 0.67 . Left upper pole cortex R.I. 0.66 . Right lower Pole medulla 29.2/7.7 Left lower Pole medulla 28/7.6 PSV/EDV . PSV/EDV . Right lower pole medulla EDR 0.26 . Left lower pole medulla EDR 0.27 . Right lower pole medulla R.I. Left lower pole medulla R.I. 0.73 . 0.74 . Lower Pole Cortx 21.9/7.1 PSV/EDV. Lower Pole Cortex 18.8/5.3 PSV/EDV. Left lower pole cortex EDR 0.32 . Right lower pole cortex EDR 0.28 . Left lower pole cortex R.I. 0.68 . Right lower pole cortex R.I. 0.72 . Left Renal Hilar Right Renal Hilar LT Hilar avg 47/12 PSV/EDV . Right Hilar avg 46.2/14.2 PSV/EDV. Left hilar acceleration time 60 Right hilar acceleration time 50 m/sec. m/sec. Left Renal Dimensions Right Renal Dimensions Left kidney size 10.16 cm . Right kidney size 10.13 cm . Left cortical dimension 0.84 cm . Right cortical dimension 0.89 cm . Aorta Proximal abdominal aorta 1.78 x 1.76 cm . Proximal abdominal aorta peak systolic velocity is 65.8 cm/sec . Distal abdominal aorta 1.14 x 1.16 cm . Distal abdominal aorta peak systolic velocity is 94.1 cm/sec . Interpretation Summary Bilateral renal arteries <60%. Ordering Physician: Gael Casarez Referring Physician: Milton Kang Performed By: Tabitha Ray RVT
== END ==
PROVIDERS: PCP Family Medicine; Referring Provider Internal Medicine Cardiovascular Disease; Visit Provider Internal Medicine Cardiovascular Disease
DX: I10 Essential (primary) hypertension (principal); I25.10 Atherosclerotic heart disease of native coronary artery without angina pectoris; I47.1 Supraventricular tachycardia; I49.3 Ventricular premature depolarization; E78.00 Pure hypercholesterolemia, unspecified; Z95.5 Presence of coronary angioplasty implant and graft
CPT/HCPCS: 93975

== ENCOUNTER 2020-04-08 11:46 | Observation (INO) | payer MEDICARE, SELFPAY ==
[2019-04-14 11:09] VITALS: BMI 25.7
[2020-01-27 11:34] VITALS: BMI 23.6
[2020-04-08] VITALS (12 sets, daily range): BP systolic 126–230; BP diastolic 55–119; PULSE 74–96; RESP 16–18; TEMP 36.4–37; O2SAT 94–99; BMI 22.1; BMI 22.2; BMI 22.3
--- NOTE | 2020-04-08 12:14 | CT_ITS ---
STUDY: CT BRAIN WITHOUT CONTRAST REASON FOR EXAM: Female, 79 years old. ELEVATED HTN RADIATION DOSAGE (If Supplied By Facility): CTDIvol = ( 44.99 ) mGy, DLP = ( 779.24 ) mGycm TECHNIQUE: Transaxial CT imaging of the brain was performed without administration of intravenous contrast material. Individualized dose optimization techniques were used for this CT. COMPARISON: No relevant priors. FINDINGS: Normal soft tissue structures. Normal calvarium. There is mild cerebral atrophy with widening of the extra-axial spaces and ventricular dilatation. There are areas of decreased attenuation within the white matter tracts of the supratentorial brain, consistent with microvascular disease changes. Normal basal ganglia and thalami. Normal brainstem. Normal cerebellum. There is no intracranial hemorrhage. There are no findings of an acute ischemic infarction. 4 mm polyp or retention cyst along the inferior medial portion of the left maxillary sinus. CT/Brain/Head without Contrast IMPRESSION: Chronic involutional changes of the brain. Electronically Signed: Mor Hudson, at 12:51 EDT , Service support ,
--- NOTE | 2020-04-08 12:15 | EKG12_ITS ---
Test Reason : CP Blood Pressure : / mmHG Vent. Rate : 093 BPM Atrial Rate : 093 BPM P-R Int : 152 ms QRS Dur : 090 ms QT Int : 358 ms P-R-T Axes : 058 -32 020 degrees QTc Int : 445 ms Normal sinus rhythm Left axis deviation Minimal voltage criteria for LVH, may be normal variant Poor R-wave Progression Abnormal ECG Confirmed by MAYKEL LION, JOCELYNE ([id number]), web content editor JEAN PIERRE CORBETT ([id number]) on 04/13/2020 10:12:58 AM Referred By: Confirmed By:JOECLYNE BRAR MD
--- NOTE | 2020-04-08 12:17 | ED.DCSUM_ITS ---
History of Present Illness Chief Complaint: Chest Pain Informant: Patient Onset: Days Context: Gradual Onset Timing: Waxes and wanes Current Severity: Mild Maximum Severity: Moderate Narrative: Patient presents secondary to intermittent chest pain and high blood pressure. She reports intermittent chest pain for the last for 5 days. She states she will typically take nitro which seems to help her chest pain. She is also felt lightheaded and nauseated. Last evening she had pain in the right side of her neck. She does complain of intermittent headaches. Patient does have significant cardiac history with [address] She also has a history of hypertension. She is currently on amlodipine and metoprolol. It is noted that at her last cardiology visit lisinopril was added to her regimen, however patient states it made her feel lightheaded so she stopped taking it. On review of records appears that she had a stress test in October 2018 and a cath in December 2019. This revealed a 70% ostial stenosis to diagonal 1 off of the LAD. Stents are open. - Past Medical History (1) CAD in [place] artery Status: Chronic (2) Essential (primary) hypertension Status: Chronic (3) Hyperlipidemia Status: Chronic (4) 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 (5) Restless leg syndrome Status: Chronic (6) CVA (cerebral vascular accident) Status: Chronic Past Medical History - Allergies and Home Meds Allergies/Adverse Reactions: Allergies amoxicillin Allergy (Verified 04/08/20 11:48) projectile vomiting diazepam [From Valium] Allergy (Verified 04/08/20 11:48) SEIZURES gabapentin Allergy (Verified 04/08/20 11:48) HYPER promethazine Allergy (Verified 04/08/20 11:48) PT UNSURE OF REACTION zolpidem Allergy (Verified 04/08/20 11:48) INSOMNIA Primary Care Physician: Milton Kang MD [Primary Care Provider] - Doctors: Dr Casarez Surgical History: - - back surgery lumbar fusion 2012, ORIF left hip 11/12/2016, varicose vein surgery 11/2010, hx of tubal ligation, hx of hysterectomy. Lives: Spouse/ Significant Other Smoking Status: Never smoker - Family History Maternal Family History: Family History (Last Reviewed 01/27/20 @ 11:46 by Brooke Fernández) Father CAD (coronary artery disease) Hypertension CVA (cerebral vascular accident) CHF (congestive heart failure) Mother CAD (coronary artery disease) Hypertension Lung cancer Family History: Reports: Heart Disease Paternal Family History: Family History (Last Reviewed 01/27/20 @ 11:46 by Brooke Fernández) Father CAD (coronary artery disease) Hypertension CVA (cerebral vascular accident) CHF (congestive heart failure) Mother CAD (coronary artery disease) Hypertension Lung cancer Family History: Reports: Heart Disease Review of Systems General: Denies: Chills, Fever Eyes: Denies: Visual changes - bilaterally ENT: Reports: - - Right lateral neck pain last evening, now resolved. Denies: Bilateral ear pain, Sore throat Cardiovascular: Reports: Chest pain Respiratory: Reports: Dyspnea. Denies: Cough, Sputum Gastrointestinal: Reports: Nausea. Denies: Abdominal pain, Vomiting Genitourinary: Denies: Dysuria Musculoskeletal: Denies: Swelling, Extremity Pain Skin: Denies: Rash Neurological: Reports: Headache. Denies: Weakness, Parasthesia Hematologic: Denies: Easy bruising, Easy bleeding Allergy: Denies: Uticaria Physical Exam Vital Signs/Narrative: Vital Signs Temp Pulse Resp BP Pulse Ox 04/08/20 12:13 96 18 230/119 H 97 04/08/20 11:49 97.6 F L 90 17 219/92 H 99 Inital Vital Signs reviewed: Yes General: Well nourished, Well developed Head: Normocephalic ENT: Moist mucous membranes Neck: Supple Cardiovascular: Regular rate, Regular rhythm Respiratory: No distress, CTA bilaterally Abdomen: Soft, Nontender, Nondistended Extremities: Nontender Skin: Normal color, No rash Neurological: Alert, Oriented x3, - - No focal neuro deficits Psychological: Normal affect Diagnostic/Tx/Re-eval Impressions Brain CT 04/08/20 12:14 IMPRESSION: Chronic involutional changes of the brain. Electronically Signed: Mor Hudson, at 12:51 EDT , Service support , Chest X-Ray 04/08/20 12:40 IMPRESSION: No acute abnormality is seen. Electronically Signed: Mor Hudson, at 12:52 EDT , Service support , 04/08/20 12:14 Brain/Head without Contrast [CT] Stat 04/08/20 12:40 Chest 1 View (Portable) [RAD] Stat Laboratory Results 04/08/20 04/08/20 12:32 12:32 WBC 5.0 RBC 3.95 L Hgb 11.7 L Hct 36.8 L MCV 93.2 MCH 29.6 MCHC 31.8 L RDW Std Deviation 42.5 RDW Coeff of Aly 12.3 Plt Count 341 MPV 9.3 Immature Gran % (Auto) 0.600 Neut % (Auto) 58.5 Lymph % (Auto) 34.1 [place] % (Auto) 5.0 Eos % (Auto) 1.2 Baso % (Auto) 0.6 Absolute Neuts (auto) 2.9 Absolute Lymphs (auto) 1.70 Nucleated RBC % 0 Sodium 142 Potassium 3.5 Chloride 106 Carbon Dioxide 27.0 Anion Gap 9 BUN 16 Creatinine 0.73 Estim Creat Clear Calc 41.05 Est GFR (MDRD) Af Amer 98 Est GFR (MDRD) Non-Af 81 BUN/Creatinine Ratio 21.8 H Glucose 105 Calcium 9.3 Troponin I < 0.015 - EKG Initial EKG Interpretation: Sinus Rhythm - Sinus at 93 with no acute ischemia. - Medical Decision Making Patient was given 20 mg of labetalol to treat her blood pressure. Repeat blood pressure is 179/111, a decrease of 20 to 25%. Remainder of work-up is otherwise unremarkable. Troponin is negative. I spoke with Dr. Egan, on-call for cardiology. He recommends the patient be brought in overnight for cycling of enzymes and further evaluation of her blood pressure. He recommended switching her metoprolol to Coreg 25 mg twice daily. This will be discussed with the hospitalist. ED Disposition - Plan for ED Patient: Disposition: Acute Care Hospital [facility] Diagnosis: Hypertensive urgency Referrals: Milton Kang MD [Primary Care Provider] -
[2020-04-08] MEDS: Labetalol 100 MG/20 ML Vial 20 MG IV (12:32)
--- NOTE | 2020-04-08 12:40 | RAD_ITS ---
STUDY: X-RAY CHEST REASON FOR EXAM: Female, 79 years old. Chest pain x 5 days TECHNIQUE: Single AP portable view of the chest. COMPARISON: Comparison is made with prior study dated 12/22/2019. FINDINGS: EKG electrodes are seen. The lungs are clear and expanded. There is no demonstrated pleural abnormality. Normal size heart. Normal mediastinum and alba. Normal visualized pulmonary arteries. There is atherosclerotic tortuosity of the aortic arch and descending thoracic aorta. Normal visualized thoracic spine. Normal visualized ribs, clavicles, and shoulders. There is no demonstrated abnormality of the visualized soft tissue structures of the upper abdomen. RAD/Chest 1 View (Portable) IMPRESSION: No acute abnormality is seen. Electronically Signed: Mor Hudson, at 12:52 EDT , Service support ,
[2020-04-08 12:41] LABS: Absolute Neutrophil Count 2.9 X10^3/uL (2.0-7.7); Basophil# 0.03 X10^3/uL; Basophil% 0.6 % (0-1); Eosinophil# 0.06 X10^3/uL; Eosinophils% 1.2 % (0-5); Hematocrit 36.8 % (37-47); Hemoglobin 11.7 g/dL (12.0-15.0); Lymphocyte % 34.1 % (19-41); Mean Corp Hgb Conc 31.8 g/dL (32-36); Mean Corpuscular Hgb 29.6 pg (27.0-32.0); Mean Corpuscular Volume 93.2 fL (81-99); Mean Platelet Vol. 9.3 fl (6.2-12.0); Monocyte# 0.25 X10^3/uL; NRBC Flagged by Analyzer 0 % (0-5); Neutrophil # 2.92 X10^3/uL (2.7-7.7); Neutrophil % 58.5 % (47-70); Platelet Count 341 K/mm3 (150-450); RBC Distribution Width CV 12.3 % (11.6-14.6); RBC Distribution Width SD 42.5 fl (35.1-43.9); Red Blood Count 3.95 M/mm3 (4.2-5.4)
[2020-04-08 12:58] LABS: Anion Gap 9 (5-15); BUN 16 mg/dL (7-18); BUN/Creat Ratio 21.8 RATIO (10-20); Calcium,Total 9.3 mg/dL (8.5-10.1); Chloride 106 mmol/L (98-107); Creatinine, Serum 0.73 mg/dL (0.55-1.02); EST Glomerular Filtration Rate 81 mL/min (>60); Est Glom Filt Rate - Afr Amer 98 mL/min (>60); Estimated Creatinine Clearance 41.05 ml/min; Glucose 105 mg/dL (74-106); Potassium 3.5 mmol/L (3.5-5.1); Sodium Level 142 mmol/L (136-145)
--- NOTE | 2020-04-08 14:20 | PCM.HP.STD ---
Problem List (1) CVA (cerebral vascular accident) Status: Chronic (2) Hypertensive urgency Status: Acute (3) Atypical chest pain Status: Acute (4) CAD in [place] artery Status: Chronic (5) Restless leg syndrome Status: Chronic (6) Atherosclerosis of coronary artery of [place] heart without angina pectoris Status: Chronic Qualifiers: Coronary Disease-Associated Artery/Lesion type: [place] artery Qualified Code(s): I25.10 - Atherosclerotic heart disease of [place] coronary artery without angina pectoris Comment: RE to RCA 07/2016; VZV-JAG-Ron-LAD w/ 3.0 x 34 mm Resolute Integrity Stent and RE-Prox D1 w/ 2.5 x 12 mm Resolute Integrity Stent 06/21/17; PCI/RE-ISR Prox RCA w/ 2.5 x 32 mm Promus Synegy 05/05/18; NIN-GXN-Ldzous D1 w/ 2.25 x 8 mm Synergy Stent and PCI-Cutting Balloon Angioplasty-ISR Ostial RCA 04/14/19 (7) 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0 - Pure hypercholesterolemia (11) Premature ventricular contractions Status: Chronic (12) SVT (supraventricular tachycardia) Status: Chronic (13) Palpitations Status: Chronic History of Present Illness Date of Admission: 04/08/20 Chief Complaint: chest pain The patient is a 79 year old F presents with a 3-day history of intermittent chest pain. Patient noted that her blood pressure was high today while she was having the chest pain and presented to the emergency room. Patient states that prior to this she did have some vague abdominal pain with nausea vomiting and diarrhea. Today she also noted pain down her left arm and up her neck. She states that her symptoms are similar to when she has had a stent in the past. In the emergency room, patient was noted to have a blood pressure of 230/119. Patient did receive 20 mg of IV labetalol which did improve her blood pressure. Patient had a heart cath in December and had chest pain at that time. [place] that she did not need intervention at that time as her blood pressure was elevated and felt to be the cause of her discomfort. Patient at that time had some moderate stenosis of the ostial branch but unchanged from previous. Been recommended to continue with medical therapy. [] Past Medical History Past Medical History (Chronic Problems): Chronic Problems (Last Reviewed 01/27/20 @ 11:46 by Brooke Fernández) CVA (cerebral vascular accident) (Chronic) CAD in [place] artery (Chronic) Restless leg syndrome (Chronic) Atherosclerosis of coronary artery of [place] heart without angina pectoris (Chronic) RE to RCA 07/2016; MGC-UCS-Mpr-LAD w/ 3.0 x 34 mm Resolute Integrity Stent and RE-Prox D1 w/ 2.5 x 12 mm Resolute Integrity Stent 06/21/17; PCI/RE-ISR Prox RCA w/ 2.5 x 32 mm Promus Synegy 05/05/18; CZW-XUQ-Kfnykn D1 w/ 2.25 x 8 mm Synergy Stent and PCI-Cutting Balloon Angioplasty-ISR Ostial RCA 04/14/19 Old inferolateral myocardial infarction (Chronic 07/2016) Essential (primary) hypertension (Chronic) Hyperlipidemia (Chronic) Premature ventricular contractions (Chronic) SVT (supraventricular tachycardia) (Chronic) Palpitations (Chronic) Medical History: Medical History (Last Reviewed 04/08/20 @ 14:[address] Ted Herring, DO) Atherosclerosis of coronary artery of [place] heart without angina pectoris (Chronic) I25.10 RE to RCA 07/2016; GXW-TGK-Cyh-LAD w/ 3.0 x 34 mm Resolute Integrity Stent and RE-Prox D1 w/ 2.5 x 12 mm Resolute Integrity Stent 06/21/17; PCI/RE-ISR Prox RCA w/ 2.5 x 32 mm Promus Synegy 05/05/18; SLJ-OGZ-Dkoaqi D1 w/ 2.25 x 8 mm Synergy Stent and PCI-Cutting Balloon Angioplasty-ISR Ostial RCA 04/14/19 Old inferolateral myocardial infarction (Chronic) Onset Date: 07/2016 I25.2 Essential (primary) hypertension (Chronic) I10 Hyperlipidemia (Chronic) E78.5 Premature ventricular contractions (Chronic) I49.3 SVT (supraventricular tachycardia) (Chronic) I47.1 Palpitations (Chronic) R00.2 Anemia D64.9 CVA (cerebral vascular accident) I63.9 Lung nodule R91.1 Hypertension (Resolved) I10 Other chest pain (Resolved) R07.89 Allergies amoxicillin Allergy (Verified 04/08/20 11:48) projectile vomiting diazepam [From Valium] Allergy (Verified 04/08/20 11:48) SEIZURES gabapentin Allergy (Verified 04/08/20 11:48) HYPER promethazine Allergy (Verified 04/08/20 11:48) PT UNSURE OF REACTION zolpidem Allergy (Verified 04/08/20 11:48) INSOMNIA Home Medications: Ambulatory Orders Medication Instructions Recorded Pantoprazole Sodium [Protonix] 40 mg PO DAILY 06/20/17 Aspirin [Aspirin, Baby] 81 mg PO DAILY@0800 05/05/18 amlodipine 10 mg tablet 10 mg PO DAILY #30 tab 04/02/19 clopidogrel 75 mg tablet 75 mg PO DAILY #30 tab 04/27/19 isosorbide mononitrate 60 mg 60 mg PO DAILY #30 tab 04/27/19 tablet,extended release 24 hr acetaminophen 500 mg tablet 1,000 mg PO Q8H 01/27/20 atorvastatin 20 mg tablet 20 mg PO QHS 01/27/20 fluticasone propionate 50 2 spray INTRANASAL DAILY 01/27/20 mcg/actuation nasal spray,suspension metoprolol succinate 100 mg 100 mg PO DAILY 01/27/20 tablet,extended release 24 hr nitroglycerin 0.4 mg sublingual 0.4 mg SUBLINGUAL Q5-15M PRN 01/27/20 tablet oxycodone 10 mg tablet 10 mg PO Q8H PRN 01/27/20 triamterene 37.5 1 cap PO DAILY 01/27/20 mg-hydrochlorothiazide 25 mg capsule Pramipexole Di-HCl [Pramipexole 0.5 mg PO BID 04/08/20 Dihydrochloride] Surgical History: Surgical History (Last Reviewed 04/08/20 @ 14:[address] Ted Herring DO) History of coronary artery stent placement (Resolved) Onset Date: 04/14/19 Z95.5 RE to RCA 07/2016; FTZ-GCS-Mhr-LAD w/ 3.0 x 34 mm Resolute Integrity Stent and RE-Prox D1 w/ 2.5 x 12 mm Resolute Integrity Stent 06/21/17; PCI/RE-ISR Prox RCA w/ 2.5 x 32 mm Promus Synegy 05/05/18; OOZ-PYJ-Baledn D1 w/ 2.25 x 8 mm Synergy Stent and PCI-Cutting Balloon Angioplasty-ISR Ostial RCA 04/14/19 History of left heart catheterization Onset Date: 12/23/19 Z98.890 History of lumbar fusion Z98.1 History of open reduction and internal fixation (ORIF) procedure Z98.890 History of tubal ligation Z98.51 Varicose vein of leg I83.90 11/2010 Surgical History: - - back surgery lumbar fusion 2012, ORIF left hip 11/12/2016, varicose vein surgery 11/2010, hx of tubal ligation, hx of hysterectomy. 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 Ted Herring DO) Father CAD (coronary artery disease) Hypertension CVA (cerebral vascular accident) CHF (congestive heart failure) Mother CAD (coronary artery disease) Hypertension Lung cancer History Items: Heart Disease Paternal Family History: Family History (Last Reviewed 04/08/20 @ 14:[address] Ted Herring DO) Father CAD (coronary artery disease) Hypertension CVA (cerebral vascular accident) CHF (congestive heart failure) Mother CAD (coronary artery disease) Hypertension Lung cancer History Items: Heart Disease Review of Systems Constitutional: Denies: Anorexia, Night Sweats Eyes: Denies: Blurred vision, Double vision HEENT: Denies: Head Aches, Sinus Congestion, Sinus Drainage Cardiovascular: Reports: Chest Pain, Edema Respiratory: Denies: Cough, Shortness of breath at rest, Sputum production Gastrointestinal: Reports: Abdominal Pain, Nausea, Vomiting Genitourinary: Denies: Dysuria Musculoskeletal: Reports: Arm Pain - Left arm pain associated with chest pain Comment: All review of systems were negative except as mentioned above in the history of present illness and the other review of systems. VTE Information - Inpt Only VTE Present on Admission: No VTE Mechan Device Prophylaxis: None VTE Pharm Prophylaxis ordered?: No Reason prophylaxis not ordered:: Treatment Not Indicated Patient Problems: Active and Suspected Problems (Last Reviewed 01/27/20 @ 11:46 by Brooke Fernández) Hypertensive urgency (Acute) - Physical Exam Vitals/I&O's: Vital Signs Temp Pulse Resp BP Pulse Ox 37.0 C 81 16 213/90 H 94 04/08/20 14:12 04/08/20 14:12 04/08/20 14:12 04/08/20 14:12 04/08/20 14:12 Oxygen Delivery Method Room Air Weight: 60.7 kg Body Mass Index (BMI) 22.2 General: Alert, No apparent distress HEENT: Atraumatic, Normocephalic Oral: Moist Mucosa, No Gingival or Mucosal Lesions/ Ulcerations Neck: No Nodes, Thyroid Normal Size and Texture Lungs: Clear to auscultation, Normal air movement, No rhonchi, No wheeze, No rales Cardiovascular: Regular rate, Regular Rhythm, Normal S1, Normal S2, No murmurs Abdomen: Bowel Sounds Present, Soft, Non Tender, Non-Distended, No Hepato-splenomegaly Extremities: No Calf Tenderness, Edema - Trace Skin: No rashes, No breakdown Musculoskeletal: No Tenderness to Palpation of Joints or Extremities, No Muscle Wasting Neurological: Muscle tone normal, - - No clonus Psych/Mental Status: Normal Affect, Appropriate Laboratory Results 04/08/20 12:32: WBC 5.0, RBC 3.95 L, Hgb 11.7 L, Hct 36.8 L, MCV 93.2, MCH 29.6, MCHC 31.8 L, RDW Std Deviation 42.5, RDW Coeff of Aly 12.3, Plt Count 341, MPV 9.3, Immature Gran % (Auto) 0.600, Neut % (Auto) 58.5, Lymph % (Auto) 34.1, [place] % (Auto) 5.0, Eos % (Auto) 1.2, Baso % (Auto) 0.6, Absolute Neuts (auto) 2.9, Absolute Lymphs (auto) 1.70, Nucleated RBC % 0 04/08/20 12:32: Sodium 142, Potassium 3.5, Chloride 106, Carbon Dioxide 27.0, Anion Gap 9, BUN 16, Creatinine 0.73, Estim Creat Clear Calc 41.05, Est GFR (MDRD) Af Amer 98, Est GFR (MDRD) Non-Af 81, BUN/Creatinine Ratio 21.8 H, Glucose 105, Calcium 9.3, Troponin I < 0.015 EKG reviewed and showed normal sinus rhythm with no acute changes. Chest x-ray reviewed and showed some interstitial changes but no overt pulmonary vascular congestion or infiltrate. Patient had a renal artery duplex back in February that showed less than 60% laterally. Current Medications Sodium Chloride () 500 mls @ 15 mls/hr IV PRN PRN PRN Reason: Blood Transfusion Sodium Chloride () 250 mls @ 15 mls/hr IV .[id number] PRN PRN Reason: Saline Flush Sodium Chloride () 250 mls @ 15 mls/hr IV .[id number] PRN PRN Reason: Additional IVPB Infusion Sodium Chloride () 10 - 40 ml IV UD PRN PRN Reason: SALINE FLUSH Assessment/Plan All Active Problems (Last Reviewed 01/27/20 @ 11:46 by Brooke Fernández) Hypertensive urgency (Acute) Atypical chest pain (Acute) History of coronary artery stent placement (Resolved 04/14/19) Hypertension (Resolved) Other chest pain (Resolved) 1. Atypical chest pain Cardiac work-up thus far has been unremarkable with exception of her blood pressure being extremely elevated. Will continue to cycle troponins and consult cardiology. Continue with aspirin, clopidogrel Patient did have 70% stenosis of the ostial lesion back in December. Defer to cardiology on additional testing such as stress test or repeat heart catheterization. 2. Hypertensive urgency Currently improved with labetalol The ER physician spoke with Dr. Egan who recommends stopping the metoprolol and switched over to carvedilol 25 mg twice daily Had a renal artery duplex. Normal previously. May be the cause of her atypical chest pain as it appeared to be the cause back in December 3. Moderate malnutrition: Patient states that she not been eating much over the past couple months that is just no appetite. Consult nutrition for further recommendations 4. VTE prophylaxis: Not indicated as patient is observation status at this time. Advanced care planning: Spent additional 20 minutes discussing with the patient and her about full code and DNR Comfort Care arrest. When detail was involved with CPR and ventilator management. Patient will be full CODE STATUS at this time. And patient's is aware the patient's wishes if she is poor vegetative state potential withdraw care at that point. OBSV E&M: 31790 Initial observation care L3 Procedures: 19485 Advncd Care Plan 30 Min
--- NOTE | 2020-04-08 14:35 | EKG12_ITS ---
Test Reason : CP ADMIT Blood Pressure : / mmHG Vent. Rate : 080 BPM Atrial Rate : 080 BPM P-R Int : 148 ms QRS Dur : 086 ms QT Int : 380 ms P-R-T Axes : 049 -35 -02 degrees QTc Int : 438 ms Normal sinus rhythm Left axis deviation Inferior infarct , age undetermined Abnormal ECG When compared with ECG of 08-APR-2020 11:58, MANUAL COMPARISON REQUIRED, DATA IS UNCONFIRMED Confirmed by IRMA LION, JEREMY ([id number]), web editor JEAN PIERRE CORBETT ([id number]) on 04/14/2020 9:44:26 AM Referred By: FLORES Confirmed By:JEREMY SOLIS MD
[2020-04-08] MEDS: oxyCODONE 5 MG Tablet PO (15:06)
[2020-04-08] MEDS: Acetaminophen 325 MG Tablet 650 MG PO (15:06)
[2020-04-08] MEDS: hydrALAZINE 20 MG/ML Vial 10 MG IV (15:10)
[2020-04-08] MEDS: Ondansetron 4 MG/2 ML Vial IV (15:59)
[2020-04-08] MEDS: Carvedilol 25 MG Tablet PO (16:02)
[2020-04-08] MEDS: Pramipexole Di-HCl 0.5 MG Tablet PO (16:02)
[2020-04-08] MEDS: Atorvastatin Calcium 20 MG Tablet PO (21:39)
[2020-04-09] VITALS (9 sets, daily range): BP systolic 141–182; BP diastolic 65–77; PULSE 73–84; RESP 11–18; TEMP 36.8–37.2; O2SAT 94–98
[2020-04-09] MEDS: Ondansetron 4 MG/2 ML Vial IV (03:07)
[2020-04-09] MEDS: Acetaminophen 325 MG Tablet 650 MG PO (04:42)
[2020-04-09] MEDS: oxyCODONE 5 MG Tablet 10 MG PO (06:21)
[2020-04-09 06:25] LABS: Anion Gap 6 (5-15); BUN 16 mg/dL (7-18); BUN/Creat Ratio 20.7 RATIO (10-20); Calcium,Total 8.6 mg/dL (8.5-10.1); Chloride 103 mmol/L (98-107); Creatinine, Serum 0.77 mg/dL (0.55-1.02); EST Glomerular Filtration Rate 76 mL/min (>60); Est Glom Filt Rate - Afr Amer 93 mL/min (>60); Estimated Creatinine Clearance 41.05 ml/min; Glucose 101 mg/dL (74-106); Potassium 3.5 mmol/L (3.5-5.1); Sodium Level 138 mmol/L (136-145)
--- NOTE | 2020-04-09 10:59 | CM.ED ---
Discussed this patient with Dr. Ochoa this am. Bp has been elevated and he believes that is what is causing discomfort. Had heart cath in December. Goal is to get BP under control and have f/u with cardiology OP. Antione Patel RN, CCM.
[2020-04-09] MEDS: Fluticasone 0.05% 1 SPRAY NASAL.SRY 2 SPRAY NASAL (11:02)
[2020-04-09] MEDS: Isosorbide Mononitrate 60 MG Tablet PO (11:03)
[2020-04-09] MEDS: Aspirin 81 MG TAB.CHEW PO (11:03)
[2020-04-09] MEDS: Clopidogrel Bisulfate 75 MG Tablet PO (11:03)
[2020-04-09] MEDS: Pantoprazole Sodium 40 MG Tablet PO (11:03)
[2020-04-09] MEDS: Carvedilol 25 MG Tablet PO (11:03)
[2020-04-09] MEDS: Triamterene 37.5MG/Hctz 25MG Capsule 1 CAP PO (11:03)
[2020-04-09] MEDS: amLODIPine 10 MG Tablet PO (11:03)
[2020-04-09] MEDS: Pramipexole Di-HCl 0.5 MG Tablet PO (11:03)
--- NOTE | 2020-04-09 13:31 | DCINST_ITS ---
- Discharge Diagnoses Current Active Problems: Current Active and Chronic Problems (Last Reviewed 04/08/20 @ 14:[address] Ted Herring, DO) Hypertensive urgency (Acute) You will use the following diet at home:: Cardiac Your food should be the consistency of: Regular Discharge Activity: Return to Normal Activity Weight Bearing Status: Weight bearing as tolerated Call your doctor if you observe: Fever of 101 or Higher, Shortness of breath, Dizziness, Fainting spells, Chest pain, Increased palpitations (irregular heartbeat), Uncontrolled pain Instructions: Controlling High Blood Pressure, Taking Your Blood Pressure Allergies/Adverse Reactions: Allergies diazepam [From Valium] Allergy (Verified 04/08/20 11:48) SEIZURES gabapentin Allergy (Verified 04/08/20 11:48) HYPER promethazine Allergy (Verified 04/08/20 11:48) PT UNSURE OF REACTION zolpidem Allergy (Verified 04/08/20 11:48) INSOMNIA Medications to take at Discharge Pantoprazole Sodium [Protonix] 40 mg PO DAILY 06/20/17 Aspirin [Aspirin, Baby] 81 mg PO DAILY@0800 05/05/18 clopidogrel 75 mg tablet 75 mg PO DAILY #30 tab 04/27/19 acetaminophen 500 mg tablet 1,000 mg PO Q8H 01/27/20 atorvastatin 20 mg tablet 20 mg PO QHS 01/27/20 fluticasone propionate 50 mcg/actuation nasal spray,suspension 2 spray INTRANASAL DAILY 01/27/20 nitroglycerin 0.4 mg sublingual tablet 0.4 mg SUBLINGUAL Q5-15M PRN 01/27/20 oxycodone 10 mg tablet 10 mg PO Q8H PRN 01/27/20 triamterene 37.5 mg-hydrochlorothiazide 25 mg capsule 1 cap PO DAILY 01/27/20 Amlodipine Besylate 10 mg PO DAILY 04/08/20 Isosorbide Mononitrate [Isosorbide Mononitrate ER] 60 mg PO DAILY 04/08/20 Pramipexole Di-HCl [Pramipexole Dihydrochloride] 0.5 mg PO BID 04/08/20 Carvedilol [Coreg (Beta Angel)] 25 mg PO BIDCM #90 tab 04/09/20 Lisinopril 5 mg PO DAILY #30 tab 04/09/20 The following prescriptions were given: Carvedilol [Coreg (Beta Angel)] 25 mg PO BIDCM #90 tab Prescription Printed Lisinopril 5 mg PO DAILY #30 tab Prescription Printed Primary Care Physician: Milton Kang MD [Primary Care Provider] - Please follow up with your Primary Care Physician in: 1 WEEK. Test Results: Test results from this visit will be discussed in further detail at your follow- up appointment, if applicable.
--- NOTE | 2020-04-09 14:19 | PCM.CONS.C ---
Reason for Consult Date of Consultation: 04/09/20 History of Present Illness: The patient is a 79 year old F presents with a 3-day history of intermittent chest pain. Patient noted that her blood pressure was high today while she was having the chest pain and presented to the emergency room. Patient states that prior to this she did have some vague abdominal pain with nausea vomiting and diarrhea. Today she also noted pain down her left arm and up her neck. She states that her symptoms are similar to when she has had a stent in the past. In the emergency room, patient was noted to have a blood pressure of 230/119. Patient did receive 20 mg of IV labetalol which did improve her blood pressure. Patient had a heart cath in December and had chest pain at that time. [place] that she did not need intervention at that time as her blood pressure was elevated and felt to be the cause of her discomfort. Patient at that time had some moderate stenosis of the ostial branch but unchanged from previous. Been recommended to continue with medical therapy. Patient was switched from metoprolol to carvedilol. This has improved her blood pressure to some extent. I had an extensive discussion with the patient and her . I explained to the patient that the ostial diagonal stenosis is better treated medically at this time. Patient does get chest pain on and off and her blood pressure goes up. Past Medical History Allergies/Adverse Reactions: Allergies diazepam [From Valium] Allergy (Verified 04/08/20 11:48) SEIZURES gabapentin Allergy (Verified 04/08/20 11:48) HYPER promethazine Allergy (Verified 04/08/20 11:48) PT UNSURE OF REACTION zolpidem Allergy (Verified 04/08/20 11:48) INSOMNIA Home Medications: Ambulatory Orders Medication Instructions Recorded Pantoprazole Sodium [Protonix] 40 mg PO DAILY 06/20/17 Aspirin [Aspirin, Baby] 81 mg PO DAILY@0800 05/05/18 clopidogrel 75 mg tablet 75 mg PO DAILY #30 tab 04/27/19 acetaminophen 500 mg tablet 1,000 mg PO Q8H 01/27/20 atorvastatin 20 mg tablet 20 mg PO QHS 01/27/20 fluticasone propionate 50 2 spray INTRANASAL DAILY 01/27/20 mcg/actuation nasal spray,suspension nitroglycerin 0.4 mg sublingual 0.4 mg SUBLINGUAL Q5-15M PRN 01/27/20 tablet oxycodone 10 mg tablet 10 mg PO Q8H PRN 01/27/20 triamterene 37.5 1 cap PO DAILY 01/27/20 mg-hydrochlorothiazide 25 mg capsule Amlodipine Besylate 10 mg PO DAILY 04/08/20 Isosorbide Mononitrate [Isosorbide 60 mg PO DAILY 04/08/20 Mononitrate ER] Pramipexole Di-HCl [Pramipexole 0.5 mg PO BID 04/08/20 Dihydrochloride] Carvedilol [Coreg (Beta Rodrigo)] 25 mg PO BIDCM #90 tab 04/09/20 Lisinopril 5 mg PO DAILY #30 tab 04/09/20 Past Medical History (Chronic Problems): Chronic Problems (Last Reviewed 04/08/20 @ 14:[address] 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 Ted Herring DO) Father CAD (coronary artery disease) Hypertension CVA (cerebral vascular accident) CHF (congestive heart failure) Mother CAD (coronary artery disease) Hypertension Lung cancer History Items: Heart Disease Paternal Family History: Family History (Last Reviewed 04/08/20 @ 14:[address] Ted Herring DO) Father CAD (coronary artery disease) Hypertension CVA (cerebral vascular accident) CHF (congestive heart failure) Mother CAD (coronary artery disease) Hypertension Lung cancer History Items: Heart Disease Lives: Spouse/ Significant Other Smoking Status: Never smoker Tobacco Use: Non-smoker Objective: Vital Signs Temp Pulse Resp BP Pulse Ox 98.5 F 82 18 182/77 H 98 04/09/20 10:40 04/09/20 11:00 04/09/20 10:40 04/09/20 10:40 04/09/20 10:40 Oxygen Delivery Method Room Air Weight: 133 lb 13.129 oz Body Mass Index (BMI) 22.2 Intake and Output for Last 24 Hours 04/07/20 04/08/20 04/09/20 23:59 23:59 23:59 Intake Total 1020 / 1020 120 / 120 Balance 1020 / 1020 120 / 120 General: Awake, Alert, Oriented x 3 HEENT: Atraumatic Oral: Moist Mucosa Neck: Supple Lungs: Clear to auscultation Cardiovascular: Normal S1, Normal S2 Abdomen: Soft Extremities: No edema Skin: No Rashes Psych/Mental Status: Appropriate 04/08/20 15:50: Troponin I < 0.015 04/08/20 18:55: Troponin I < 0.015 04/09/20 05:33: Sodium 138, Potassium 3.5, Chloride 103, Carbon Dioxide 29.0, Anion Gap 6, BUN 16, Creatinine 0.77, Est GFR (MDRD) Af Amer 93, Est GFR (MDRD) Non-Af 76, BUN/Creatinine Ratio 20.7 H, Glucose 101, Calcium 8.6 Rhythm: EKG: ECHO: Stress Test: Cardiac Cath: PCI: CT Surgery: Holter monitor: EPS: PPM: CXR: Chest CT Scan: Assessment/Plan 1. Chest pain: Patient had a heart cath in December of this year which revealed mild stenoses except in the ostial diagonal which had a stenosis of 70%. Explained to the patient that this is better treated medically at this time. Explained to the patient that we should work on controlling her blood pressure. Her beta-rodrigo has been switched to carvedilol. We will give her a prescription for lisinopril which she will start taking if her blood pressure remains elevated at home. She was started on lisinopril 10 mg twice daily as an outpatient and this dropped her blood pressure significantly and she was feeling lightheaded. Initially it was a 10 mg p.o. daily which was not adequate for her according to the patient. If patient continues to have chest pain despite controlled blood pressure then we could add Ranexa. 2. Hypertension: We will continue adjusting the medications as an outpatient. For now her beta-rodrigo has been switched to carvedilol. This has helped to some extent. Patient will check her blood pressure at home and if it stays elevated then she will start lisinopril as well at 2.5 mg p.o. daily. She can be discharged from work from a cardiac standpoint she can follow-up with Dr. Casarez as an outpatient.
--- NOTE | 2020-04-09 15:26 | DS.PCM_ITS ---
Discharge Date and Diagnosis Date of Admission: 04/08/20 Date of Discharge: 04/09/20 - Primary Discharge Diagnosis Acute Problems: #1 atypical chest pain, ACS ruled out, likely due to uncontrolled hypertension. #2 hypertensive urgency. - Secondary Discharge Diagnosis Chronic Problems: Chronic Problems (Last Reviewed 04/08/20 @ 14:[address] 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 Electronically Signed: Mor Hudson, at 12:51 EDT , Service support , Chest X-Ray 04/08/20 12:40 IMPRESSION: No acute abnormality is seen. Electronically Signed: Mor Hudson, at 12:52 EDT , Service support , Dr. Egan, cardiology. Operations: None Procedures: EKG Summary of Care Provided: Patient seen and examined on the day of discharge and appeared to be stable to be discharged home. She had no more chest pain. Denied any headache. Blood pressure improved. Other vital signs are stable. The patient is a 79 year old F presented to the emergency room because of chest pain and elevated blood pressure. On arrival to the emergency department, her blood pressure was 219/92, maximum was 230/119. During that time, patient did have chest pain. Her EKG revealed normal sinus rhythm and without evidence of acute ischemic changes. Patient complained of headache because of the elevated blood pressure and CT scan brain done and showed no acute findings. Her routine blood work was unremarkable. Troponin was negative x3. Chest x-ray showed no acute findings. Patient was admitted to PCU for observation, started on Coreg instead of metoprolol and she was continued on Norvasc, also about mononitrate and triamterene/HCTZ. Also, she was given IV adenosine PRN. With treatment, her blood pressure improved and once her blood pressure improved, her chest pain resolved. Patient had cardiac catheterization on Dec, 2019 which revealed mild disease except in the ostial diagonal branch which had 70% stenosis. Cardio recommended medical treatment and blood pressure control. Would starting her on Coreg and discontinuation of metoprolol, her blood pressure improved as well as her symptoms. Cardiology recommended to start patient on lisinopril small dose to be taken if her evening blood pressure is above 160. Prescription was given of lisinopril 5 mg and instructions were given to the patient to take this medicine if her evening blood pressure is more than 160 systolic. Patient discharged home in a stable condition, discharged on Coreg 25 mg p.o. twice daily, prescription given for lisinopril 5 mg and instructed to take it if evening blood pressure is more than 160, continued on her previous other home medications without any changes, recommended to check blood pressure at least twice a day and keep a blood pressure log, recommended follow-up with PCP in 1 week. - Physical Exam Vitals/I&O's: Vital Signs Temp Pulse Resp BP Pulse Ox 98.3 F 77 18 148/65 H 96 04/09/20 14:32 04/09/20 14:32 04/09/20 14:32 04/09/20 14:32 04/09/20 14:32 Oxygen Delivery Method Room Air Weight: 133 lb 13.129 oz Body Mass Index (BMI) 22.2 Intake and Output for Last 24 Hours 04/07/20 04/08/20 04/09/20 23:59 23:59 23:59 Intake Total 1020 / 1020 120 / 120 Balance 1020 / 1020 120 / 120 General: Alert, Oriented x3, Cooperative, No apparent distress HEENT: Atraumatic, PERRLA, EOMI, Normocephalic Oral: Moist Mucosa, No Gingival or Mucosal Lesions/ Ulcerations Neck: Supple, No JVD, Negative Carotid Bruits, Trachea Midline, Thyroid Normal Size and Texture Lungs: Clear to auscultation, Normal air movement, No rhonchi, No wheeze, No rales Cardiovascular: Regular rate, Regular Rhythm, Normal S1, Normal S2, PMI Normal Abdomen: Bowel Sounds Present, Soft, Non Tender, Non-Distended, No Hepato- splenomegaly Extremities: No clubbing, No cyanosis, No edema Skin: No rashes, No breakdown Lymphatic: No Cervical, Supraclavicular, or Inguinal Adenopathy Neurological: Cranial nerves II-XII grossly intact, Neuro grossly intact Psych/Mental Status: Normal Affect, Appropriate Laboratory Results 04/08/20 15:50: Troponin I < 0.015 04/08/20 18:55: Troponin I < 0.015 04/09/20 05:33: Sodium 138, Potassium 3.5, Chloride 103, Carbon Dioxide 29.0, Anion Gap 6, BUN 16, Creatinine 0.77, Estim Creat Clear Calc 41.05, Est GFR (MDRD) Af Amer 93, Est GFR (MDRD) Non-Af 76, BUN/Creatinine Ratio 20.7 H, Glucose 101, Calcium 8.6 Discharge Activity: Return to Normal Activity Weight Bearing Status: Weight bearing as tolerated Call your doctor if you observe: Fever of 101 or Higher, Shortness of breath, Dizziness, Fainting spells, Chest pain, Increased palpitations (irregular heartbeat), Uncontrolled pain Home Medications: Medications to take at Discharge Pantoprazole Sodium [Protonix] 40 mg PO DAILY 06/20/17 Aspirin [Aspirin, Baby] 81 mg PO DAILY@0800 05/05/18 clopidogrel 75 mg tablet 75 mg PO DAILY #30 tab 04/27/19 acetaminophen 500 mg tablet 1,000 mg PO Q8H 01/27/20 atorvastatin 20 mg tablet 20 mg PO QHS 01/27/20 fluticasone propionate 50 mcg/actuation nasal spray,suspension 2 spray INTRANASAL DAILY 01/27/20 nitroglycerin 0.4 mg sublingual tablet 0.4 mg SUBLINGUAL Q5-15M PRN 01/27/20 oxycodone 10 mg tablet 10 mg PO Q8H PRN 01/27/20 triamterene 37.5 mg-hydrochlorothiazide 25 mg capsule 1 cap PO DAILY 01/27/20 Amlodipine Besylate 10 mg PO DAILY 04/08/20 Isosorbide Mononitrate [Isosorbide Mononitrate ER] 60 mg PO DAILY 04/08/20 Pramipexole Di-HCl [Pramipexole Dihydrochloride] 0.5 mg PO BID 04/08/20 Carvedilol [Coreg (Beta Angel)] 25 mg PO BIDCM #90 tab 04/09/20 Lisinopril 5 mg PO DAILY #30 tab 04/09/20 Following Prescriptions Were Given to Patient: Carvedilol [Coreg (Beta Angel)] 25 mg PO BIDCM #90 tab Prescription Printed Lisinopril 5 mg PO DAILY #30 tab Prescription Printed Primary Care Physician: Milton Kang MD [Primary Care Provider] - Please follow up with your Primary Care Physician in: 1 WEEK. Patient Instructions: Controlling High Blood Pressure, Taking Your Blood Pressure Disposition: Home Minutes spent on discharge:: 28 Patient Condition:: Stable Medical Necessity - Tobacco Use Smoking Status: Never smoker Tobacco Use: Non-smoker Meaningful Use Info Meaningful Use Diagnoses (Choose all that apply): None applicable OBSV E&M: 88127 Observation care discharge
== END 2020-04-09 13:31 | disposition home or self-care (01) ==
LOC: ED 13:12 → PCU 14:38
PROVIDERS: Emergency Provider Emergency Medicine; PCP Family Medicine; Visit Provider Hospitalist
DX: I16.0 Hypertensive urgency (principal); R07.89 Other chest pain; I10 Essential (primary) hypertension; R42 Dizziness and giddiness; R11.0 Nausea; M54.2 Cervicalgia; E78.5 Hyperlipidemia, unspecified; I25.10 Atherosclerotic heart disease of native coronary artery without angina pectoris; I25.2 Old myocardial infarction; G25.81 Restless legs syndrome; M79.602 Pain in left arm; E44.0 Moderate protein-calorie malnutrition; R51 Headache; Z95.5 Presence of coronary angioplasty implant and graft; Z79.899 Other long term (current) drug therapy; Z79.82 Long term (current) use of aspirin; Z86.73 Personal history of transient ischemic attack (TIA), and cerebral infarction without residual deficits; Z68.22 Body mass index [BMI] 22.0-22.9, adult
CPT/HCPCS: 36415; 70450; 71045; 80048; 84484; 85025; 93005; 96374; 96375; 96376; 97802; 99218; 99285; A4216; G0378; J2405

== ENCOUNTER 2020-09-02 14:57 | Observation (INO) | payer MEDICARE, SELFPAY ==
[2019-04-14 11:09] VITALS: BMI 25.7
[2020-04-08 14:12] VITALS: BMI 22.2
[2020-09-02] VITALS (8 sets, daily range): BP systolic 152–226; BP diastolic 74–117; PULSE 80–97; RESP 15–20; TEMP 36.2–37.1; O2SAT 96–99; BMI 22.4; BMI 22.5
--- NOTE | 2020-09-02 15:19 | EKG12_ITS ---
Test Reason : HTN Blood Pressure : / mmHG Vent. Rate : 093 BPM Atrial Rate : 093 BPM P-R Int : 148 ms QRS Dur : 072 ms QT Int : 356 ms P-R-T Axes : 069 -35 017 degrees QTc Int : 442 ms Normal sinus rhythm Left axis deviation Left ventricular hypertrophy with repolarization abnormality Inferior infarct , age undetermined Abnormal ECG Confirmed by ANDREI LION, KAYLEY ([id number]), purchasing expeditor RUPALI NARANJO ([id number]) on 09/05/2020 12:16:28 PM Referred By: JAMESON Confirmed By:JC FORBES MD
--- NOTE | 2020-09-02 16:27 | ED.VIS.GEN ---
History of Present Illness Chief Complaint: Hypertension Informant: Patient Narrative: Patient is a 79-year-old female the past medical history of CAD with stents placed, hypertension who presents to the emergency department for multiple complaints. She is mostly concerned about her blood pressure being high. She states over the past 2 weeks it has been in the 190s to 200s systolic. Has occasionally got as high as 220 systolic. She has been compliant with all of her antihypertensive medications. She has been having intermittent chest pain throughout the past 2 weeks associated with this. She has been taking nitroglycerin which does bring down her blood pressure but she is not sure how much it helps her chest pain. She is still having some right-sided chest pain. No significant shortness of breath with this. She has been having a headache at the apex of her scalp. She has been having nausea as well. Denies any significant abdominal pain. She denies any leg swelling or calf pain. She did contact her PCP today who referred her to the emergency department. She denies any recent illness. Past Medical History - Allergies and Home Meds Allergies/Adverse Reactions: Allergies diazepam [From Valium] Allergy (Verified 09/02/20 15:01) SEIZURES gabapentin Allergy (Verified 09/02/20 15:01) HYPER promethazine Allergy (Verified 09/02/20 15:01) PT UNSURE OF REACTION zolpidem Allergy (Verified 09/02/20 15:01) INSOMNIA Primary Care Physician: Milton Kang MD [Primary Care Provider] - Prior records reviewed: Yes Past Medical History: - - As per HPI Surgical History: - - back surgery lumbar fusion 2012, ORIF left hip 11/12/2016, varicose vein surgery 11/2010, hx of tubal ligation, hx of hysterectomy. Smoking Status: Never smoker - Family History Maternal Family History: Family History (Last Reviewed 04/08/20 @ 14:[address] Ted Herring DO) Father CAD (coronary artery disease) Hypertension CVA (cerebral vascular accident) CHF (congestive heart failure) Mother CAD (coronary artery disease) Hypertension Lung cancer Family History: Reports: Heart Disease Paternal Family History: Family History (Last Reviewed 04/08/20 @ 14:[address] Ted Herring DO) Father CAD (coronary artery disease) Hypertension CVA (cerebral vascular accident) CHF (congestive heart failure) Mother CAD (coronary artery disease) Hypertension Lung cancer Family History: Reports: Heart Disease Review of Systems All systems negative except as indicated General: Denies: Chills, Fever, Sweats Eyes: Denies: Visual changes - bilaterally, Diplopia ENT: Denies: Rhinorrhea, Sore throat Cardiovascular: Reports: Chest pain. Denies: Palpitations Respiratory: Denies: Dyspnea, Cough, Dyspnea on exertion Gastrointestinal: Reports: Nausea. Denies: Abdominal pain, Vomiting, Diarrhea Genitourinary: Denies: Dysuria, Hematuria, Frequency Musculoskeletal: Denies: Back pain, Extremity Pain Skin: Denies: Rash, Wounds Neurological: Reports: Headache. Denies: Weakness, Numbness Physical Exam Vital Signs/Narrative: Vital Signs Temp Pulse Resp BP Pulse Ox 09/02/20 14:58 97.2 F L 97 16 226/117 H 99 Inital Vital Signs reviewed: Yes General: Well nourished, Well developed, No Acute Distress Head: Normocephalic, Atraumatic Eyes: Perrl, EOMI ENT: Moist mucous membranes, No rhinorrhea Neck: Supple, Nontender Cardiovascular: Regular rate, Regular rhythm, No murmurs Respiratory: No distress, CTA bilaterally, Chest nontender Abdomen: Soft, Nontender, Nondistended, Normal bowel sounds Back: Nontender, Normal Inspection Extremities: Nontender, No edema. Negative for: Calf Tenderness Skin: Normal color, No rash Neurological: Alert, Oriented x3, Cranial nerves II-XII grossly intact, Normal Strength, Normal Sensation Psychological: Normal affect, Normal Mood Diagnostic/Tx/Re-eval Chest X-Ray - ED: - - Single view portable x-ray interpreted by myself. Clear lung day bilaterally. Normal cardiac silhouette. Normal mediastinum. Agree with radiologist interpretation. - EKG Initial EKG Interpretation: - - Rate of 93 bpm normal sinus rhythm. Normal intervals. Left axis deviation. No significant ST elevations or depressions. No T wave abnormalities. - Medical Decision Making Patient presents to the emergency department for elevated blood pressure readings as well as chest pain. Does have a history of CAD. Upon arrival to the ED she is hypertensive with a blood pressure of 226/117. The rest of vital signs within normal limits. Given that she is symptomatic with his blood pressure will check basic lab work and EKG. Will treat with IV dose of labetalol. Patient's lab work did not show any signs of endorgan damage with the hypertension. Given the fact she is having chest pain associated with her high blood pressure will bring her to the hospital for further evaluation and management. She otherwise has been stable throughout ED stay. She understands and is agreeable with this plan. ED Disposition - Plan for ED Patient: Disposition: Acute [facility] Diagnosis: Hypertensive urgency, Chest pain Referrals: Milton Kang MD [Primary Care Provider] -
--- NOTE | 2020-09-02 16:40 | RAD_ITS ---
STUDY: X-RAY CHEST REASON FOR EXAM: Female, 79 years old. HYPERTENSION FOR PAST WEEK, HEADACHES, ABD PAIN, AND NAUSEA. CHEST PAIN. TECHNIQUE: Single AP portable view of the chest. COMPARISON: 04/08/2020 FINDINGS: The lungs are clear and expanded. There is no demonstrated pleural abnormality. Normal size heart. Normal mediastinum and alba. Normal visualized pulmonary arteries. Normal visualized aortic arch and descending thoracic aorta. Normal visualized thoracic spine. Normal visualized ribs, clavicles, and shoulders. There is no demonstrated abnormality of the visualized soft tissue structures of the upper abdomen. RAD/Chest 1 View (Portable) IMPRESSION: Normal x-ray examination of the chest. Electronically Signed: Margarito Shabazz MD at 16:53 EST Tel , Service support ,
[2020-09-02 16:43] LABS: Absolute Lymphocyte Count 2.31 X10^3/uL (0.83-4.51); Absolute Neutrophil Count 3.9 X10^3/uL (2.0-7.7); Basophil# 0.04 X10^3/uL; Basophil% 0.6 % (0-1); Eosinophil# 0.11 X10^3/uL; Eosinophils% 1.6 % (0-5); Hemoglobin 12.5 g/dL (12.0-15.0); Lymphocyte # 2.31 X10^3/ul (4.0); Lymphocyte % 34.3 % (19-41); Mean Corp Hgb Conc 32.1 g/dL (32-36); Mean Corpuscular Hgb 29.6 pg (27.0-32.0); Mean Corpuscular Volume 92.4 fL (81-99); Mean Platelet Vol. 9.4 fl (6.2-12.0); Monocyte# 0.36 X10^3/uL; Monocyte% 5.3 % (0-10); NRBC Flagged by Analyzer 0 % (0-5); Neutrophil # 3.89 X10^3/uL (2.7-7.7); Neutrophil % 57.9 % (47-70); Platelet Count 390 K/mm3 (150-450); RBC Distribution Width CV 12.6 % (11.6-14.6); RBC Distribution Width SD 42.6 fl (35.1-43.9); Red Blood Count 4.22 M/mm3 (4.2-5.4); White Blood Count 6.7 K/mm3 (4.4-11.0)
[2020-09-02 16:59] LABS: BUN 20 mg/dL (7-18); Creatinine, Serum 0.74 mg/dL (0.55-1.02); EST Glomerular Filtration Rate 80 mL/min (>60); Estimated Creatinine Clearance 41.05 ml/min; Glucose 99 mg/dL (74-106)
[2020-09-02 17:00] LABS: Anion Gap 4 (5-15); BUN/Creat Ratio 26.8 RATIO (10-20); Calcium,Total 9.4 mg/dL (8.5-10.1); Chloride 105 mmol/L (98-107); Est Glom Filt Rate - Afr Amer 96 mL/min (>60); Magnesium 2.2 mg/dL (1.6-2.6); Sodium Level 138 mmol/L (136-145)
[2020-09-02 17:09] LABS: AST(SGOT) 21 U/L (15-37); Alanine Aminotransfer ALT/SGPT 28 U/L (13-56); Albumin, Serum 3.8 g/dL (3.2-5.0); Alkaline Phosphatase 119 U/L (45-117); Bilirubin, Direct < 0.05 mg/dL (0.00-0.30); Globulin 4.4 g/dL (2.2-4.2); Protein, Total 8.2 g/dL (6.4-8.2)
[2020-09-02] MEDS: Labetalol (Prefilled) 20 MG/4 ML 40 MG IV (17:37)
--- NOTE | 2020-09-02 18:56 | HP.PCM_ITS ---
History of Present Illness Date of Admission: 09/02/20 Chief Complaint: Hypertension and headaches The patient is a 79 year old F with a PMH as below who presents to the hospital with hypertension and headaches. She states that for the last 2 weeks she has been having blood pressure readings in the high 100s low 200s systolic. She started having a significant headache which is why she presented to the hospital today. She denies any blurry vision. She has been having some intermittent chest pain as well though in the ER her troponin was unremarkable. She states that she has been taking her home medications appropriately and she is not sure what changed for the last 2 weeks to cause an increase in her systolic blood pressures. In the ER she was on labetalol as needed and initially her systolic blood pressure was 226 and has now improved to 168. Lab work was unremarkable and EKG was nonischemic. Past Medical History Past Medical History (Chronic Problems): Chronic Problems (Last Reviewed 04/08/20 @ 14:[address] 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 Ted Herring DO) Restless leg syndrome (Chronic) G25.81 CVA (cerebral vascular accident) (Chronic) I63.9 Atherosclerosis of coronary artery of [place] heart without angina pectoris (Chr onic) I25.10 RE to RCA 07/2016; XBZ-XID-Krp-LAD w/ 3.0 x 34 mm Resolute Integrity Stent and RE-Prox D1 w/ 2.5 x 12 mm Resolute Integrity Stent 06/21/17; PCI/RE-ISR Prox RCA w/ 2.5 x 32 mm Promus Synegy 05/05/18; SYO-PXU-Safcha D1 w/ 2.25 x 8 mm Synergy Stent and PCI-Cutting Balloon Angioplasty-ISR Ostial RCA 04/14/19 Old inferolateral myocardial infarction (Chronic) Onset Date: 07/2016 I25.2 Essential (primary) hypertension (Chronic) I10 Hyperlipidemia (Chronic) E78.5 Premature ventricular contractions (Chronic) I49.3 SVT (supraventricular tachycardia) (Chronic) I47.1 Anemia D64.9 CVA (cerebral vascular accident) I63.9 Lung nodule R91.1 Hypertension (Resolved) I10 Allergies diazepam [From Valium] Allergy (Verified 09/02/20 15:01) SEIZURES gabapentin Allergy (Verified 09/02/20 15:01) HYPER promethazine Allergy (Verified 09/02/20 15:01) PT UNSURE OF REACTION zolpidem Allergy (Verified 09/02/20 15:01) INSOMNIA Home Medications: Ambulatory Orders Medication Instructions Recorded Pantoprazole Sodium [Protonix] 40 mg PO DAILY 06/20/17 Aspirin [Aspirin, Baby] 81 mg PO DAILY@0800 05/05/18 acetaminophen 500 mg tablet 1,000 mg PO Q8H 01/27/20 fluticasone propionate 50 2 spray INTRANASAL DAILY 01/27/20 mcg/actuation nasal spray,suspension nitroglycerin 0.4 mg sublingual 0.4 mg SUBLINGUAL Q5-15M PRN 01/27/20 tablet oxycodone 10 mg tablet 10 mg PO Q8H PRN 01/27/20 triamterene 37.5 1 cap PO DAILY 01/27/20 mg-hydrochlorothiazide 25 mg capsule Amlodipine Besylate 10 mg PO DAILY 04/08/20 Pramipexole Di-HCl [Pramipexole 0.5 mg PO BID 04/08/20 Dihydrochloride] Lisinopril 5 mg PO DAILY #30 tab 04/09/20 clopidogrel 75 mg tablet 75 mg PO DAILY #30 tab 04/12/20 atorvastatin 20 mg tablet 20 mg PO QHS #90 tab 05/18/20 carvedilol 25 mg tablet 25 mg PO BID #180 tab 05/18/20 isosorbide mononitrate 60 mg 60 mg PO DAILY #90 tab 05/18/20 tablet,extended release 24 hr Surgical History: Surgical History (Last Reviewed 04/08/20 @ 14:[address] Ted Herring DO) History of coronary artery stent placement (Resolved) Onset Date: 04/14/19 Z95.5 RE to RCA 07/2016; HWM-WVD-Yfn-LAD w/ 3.0 x 34 mm Resolute Integrity Stent and RE-Prox D1 w/ 2.5 x 12 mm Resolute Integrity Stent 06/21/17; PCI/RE-ISR Prox RCA w/ 2.5 x 32 mm Promus Synegy 05/05/18; DVB-CSI-Pjxjgx D1 w/ 2.25 x 8 mm Synergy Stent and PCI-Cutting Balloon Angioplasty-ISR Ostial RCA 04/14/19 History of left heart catheterization Onset Date: 12/23/19 Z98.890 History of lumbar fusion Z98.1 History of open reduction and internal fixation (ORIF) procedure Z98.890 History of tubal ligation Z98.51 Varicose vein of leg I83.90 11/2010 Surgical History: - - back surgery lumbar fusion 2012, ORIF left hip 11/12/2016, varicose vein surgery 11/2010, hx of tubal ligation, hx of hysterectomy. 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 Ted Herring DO) Father CAD (coronary artery disease) Hypertension CVA (cerebral vascular accident) CHF (congestive heart failure) Mother CAD (coronary artery disease) Hypertension Lung cancer History Items: Heart Disease Paternal Family History: Family History (Last Reviewed 04/08/20 @ 14:[address] Ted Herring DO) Father CAD (coronary artery disease) Hypertension CVA (cerebral vascular accident) CHF (congestive heart failure) Mother CAD (coronary artery disease) Hypertension Lung cancer History Items: Heart Disease Review of Systems Constitutional: Denies: Chills, Fever, Weight Change HEENT: Reports: Head Aches. Denies: Sinus Congestion, Sinus Drainage Cardiovascular: Reports: Chest Pain. Denies: Palpitations Respiratory: Denies: Cough, Shortness of breath at rest, Sputum production Gastrointestinal: Denies: Abdominal Pain, Nausea, Vomiting Genitourinary: Denies: Dysuria Musculoskeletal: Denies: Joint Pain, Joint Tenderness Skin: Denies: Rash, Wounds Neurological: Denies: Numbness, Tingling, Focal weakness Psychiatric: Denies: Anxiety, Depression Hematologic/ Lymphatic: Denies: Easy Bruising, Easy Bleeding VTE Information - Inpt Only VTE Present on Admission: No Patient Problems: Active and Suspected Problems (Last Reviewed 04/08/20 @ 14:[address] Ted Herring, DO) Hypertensive urgency (Acute) Chest pain (Acute) - Physical Exam Vitals/I&O's: Vital Signs Temp Pulse Resp BP Pulse Ox 97.2 F L 80 20 H 168/74 H 96 09/02/20 14:58 09/02/20 17:47 09/02/20 17:47 09/02/20 17:47 09/02/20 17:47 Oxygen Delivery Method Room Air Weight: 134 lb 14.766 oz Body Mass Index (BMI) 22.4 General: Alert, Oriented x3, Cooperative, No apparent distress HEENT: Atraumatic, PERRLA, EOMI, Normocephalic Oral: Moist Mucosa Neck: Supple, No JVD Lungs: Clear to auscultation, Normal air movement, No rhonchi, No wheeze, No rales Cardiovascular: Regular rate, Regular Rhythm, Normal S1, Normal S2, No murmurs Abdomen: Soft, Non Tender, Non-Distended, No Hepato-splenomegaly Extremities: No edema, Capillary Refill Less than 3 Seconds Skin: No rashes, No breakdown Neurological: Neuro grossly intact, Sensory exam intact to light touch and pain Psych/Mental Status: Normal Affect, Appropriate Laboratory Results 09/02/20 16:21: Total Bilirubin 0.40, Direct Bilirubin < 0.05, AST 21, ALT 28, Alkaline Phosphatase 119 H, Total Protein 8.2, Albumin 3.8, Globulin 4.4 H 09/02/20 16:21: WBC 6.7, RBC 4.22, Hgb 12.5, Hct 39.0, MCV 92.4, MCH 29.6, MCHC 32.1, RDW Std Deviation 42.6, RDW Coeff of Aly 12.6, Plt Count 390, MPV 9.4, Immature Gran % (Auto) 0.300, Neut % (Auto) 57.9, Lymph % (Auto) 34.3, [place] % (Auto) 5.3, Eos % (Auto) 1.6, Baso % (Auto) 0.6, Absolute Neuts (auto) 3.9, Absolute Lymphs (auto) 2.31, Nucleated RBC % 0 09/02/20 16:21: Sodium 138, Potassium 4.0, Chloride 105, Carbon Dioxide 29.0, Anion Gap 4 L, BUN 20 H, Creatinine 0.74, Estim Creat Clear Calc 41.05, Est GFR (MDRD) Af Amer 96, Est GFR (MDRD) Non-Af 80, BUN/Creatinine Ratio 26.8 H, Glucose 99, Calcium 9.4, Magnesium 2.2, Troponin I < 0.015 Assessment/Plan All Active Problems (Last Reviewed 04/08/20 @ 14:[address] Ted Herring, DO) Hypertensive urgency (Acute) Chest pain (Acute) Hypertensive urgency (Resolved 04/09/20) History of coronary artery stent placement (Resolved 04/14/19) Atypical chest pain (Resolved) Hypertension (Resolved) Other chest pain (Resolved) 1. Hypertensive urgency/HLD/CAD status post stents/history of SVT -She states she is compliant with her medications, she is on amlodipine 10 mg, carvedilol 25 mg twice daily, isosorbide mononitrate 60 mg daily, triamterene/hydrochlorothiazide daily and she is supposed to take lisinopril 5 mg whenever her blood pressure gets above 160. Will restart her home meds once they are updated -Consult cardiology for evaluation, she did have an echo in December with an EF of 70% -We will add clonidine 0.2 mg p.o. 3 times daily as needed for blood pressure greater than 170 -Renal function is normal, but may benefit from renal artery duplex -Continue with aspirin, Plavix and statin 2. GERD -Stable -Continue PPI DVT: Lovenox Inpatient E&M: 54576 Init Hosp L2
[2020-09-03] VITALS (12 sets, daily range): BP systolic 94–172; BP diastolic 49–79; PULSE 72–87; RESP 16–18; TEMP 36.4–36.8; O2SAT 95–98
[2020-09-03] MEDS: Ondansetron 4 MG/2 ML Vial IV ×2 (00:54→20:59)
[2020-09-03] MEDS: 0.9% Saline Lock 10 ML Syringe IV ×2 (00:54→20:59)
[2020-09-03] MEDS: Acetaminophen 325 MG Tablet 650 MG PO (00:55)
[2020-09-03] MEDS: oxyCODONE 5 MG Tablet 10 MG PO (00:55)
--- NOTE | 2020-09-03 06:30 | EKG12_ITS ---
Test Reason : Blood Pressure : / mmHG Vent. Rate : 079 BPM Atrial Rate : 079 BPM P-R Int : 144 ms QRS Dur : 072 ms QT Int : 388 ms P-R-T Axes : 054 -35 020 degrees QTc Int : 444 ms Normal sinus rhythm Left axis deviation Inferior infarct , age undetermined Abnormal ECG When compared with ECG of 03-SEP-2020 06:39, MANUAL COMPARISON REQUIRED, DATA IS UNCONFIRMED Confirmed by IRMA LION, JEREMY ([id number]), manager editorial JEAN PIERRE CORBETT ([id number]) on 09/06/2020 8:43:52 AM Referred By: LORENZA Confirmed By:JERMEY SOLIS MD
[2020-09-03 08:03] LABS: Absolute Lymphocyte Count 3.11 X10^3/uL (0.83-4.51); Absolute Neutrophil Count 2.2 X10^3/uL (2.0-7.7); Basophil# 0.02 X10^3/uL; Basophil% 0.3 % (0-1); Eosinophil# 0.18 X10^3/uL; Hematocrit 34.9 % (37-47); Hemoglobin 10.9 g/dL (12.0-15.0); Lymphocyte # 3.11 X10^3/ul (4.0); Lymphocyte % 51.9 % (19-41); Mean Corp Hgb Conc 31.2 g/dL (32-36); Mean Corpuscular Hgb 29.1 pg (27.0-32.0); Mean Corpuscular Volume 93.3 fL (81-99); Monocyte% 8.3 % (0-10); NRBC Flagged by Analyzer 0 % (0-5); Neutrophil # 2.17 X10^3/uL (2.7-7.7); Neutrophil % 36.3 % (47-70); Platelet Count 375 K/mm3 (150-450); RBC Distribution Width CV 12.7 % (11.6-14.6); RBC Distribution Width SD 43.3 fl (35.1-43.9); Red Blood Count 3.74 M/mm3 (4.2-5.4)
[2020-09-03 08:31] LABS: Anion Gap 8 (5-15); BUN 22 mg/dL (7-18); BUN/Creat Ratio 28.4 RATIO (10-20); Calcium,Total 8.7 mg/dL (8.5-10.1); Chloride 105 mmol/L (98-107); Creatinine, Serum 0.77 mg/dL (0.55-1.02); EST Glomerular Filtration Rate 76 mL/min (>60); Est Glom Filt Rate - Afr Amer 92 mL/min (>60); Estimated Creatinine Clearance 41.05 ml/min; Glucose 110 mg/dL (74-106); Potassium 3.7 mmol/L (3.5-5.1); Sodium Level 140 mmol/L (136-145)
[2020-09-03] MEDS: Pramipexole Di-HCl 0.5 MG Tablet PO ×2 (09:07→18:10)
[2020-09-03] MEDS: Carvedilol 25 MG Tablet PO (09:07)
[2020-09-03] MEDS: Aspirin 81 MG TAB.CHEW PO (09:07)
[2020-09-03] MEDS: Clopidogrel Bisulfate 75 MG Tablet PO (09:08)
[2020-09-03] MEDS: Lisinopril 5 MG Tablet PO (09:08)
[2020-09-03] MEDS: Pantoprazole Sodium 40 MG Tablet PO (09:08)
[2020-09-03] MEDS: Isosorbide Mononitrate 60 MG Tablet PO (09:08)
[2020-09-03] MEDS: Triamterene 37.5MG/Hctz 25MG Capsule 1 CAP PO (09:08)
[2020-09-03] MEDS: Enoxaparin 40 MG/0.4 ML Syringe SC (09:11)
[2020-09-03] MEDS: Metoclopramide 10 MG/2 ML Vial 5 MG IV (12:38)
--- NOTE | 2020-09-03 12:51 | EKG12_ITS ---
Test Reason : Blood Pressure : / mmHG Vent. Rate : 076 BPM Atrial Rate : 076 BPM P-R Int : 140 ms QRS Dur : 076 ms QT Int : 400 ms P-R-T Axes : 021 -33 -06 degrees QTc Int : 450 ms Normal sinus rhythm Left axis deviation Inferior infarct , age undetermined Abnormal ECG When compared with ECG of 02-SEP-2020 15:25, MANUAL COMPARISON REQUIRED, DATA IS UNCONFIRMED Confirmed by IRMA LION, JEREMY ([id number]), editor map JEAN PIERRE CORBETT ([id number]) on 09/06/2020 8:44:43 AM Referred By: LORENZA Confirmed By:JEREMY SOLIS MD
--- NOTE | 2020-09-03 13:45 | PCM.PN.HOSP ---
Patient Problems: Active and Suspected Problems (Last Reviewed 04/08/20 @ 14:[address] Ted Herring, DO) Hypertensive urgency (Acute) Chest pain (Acute) Reason for Visit: Follow-up for hypertensive urgency, labile blood pressure and mild shortness of breath. Objective: Seen and examined the patient in the presence of her near the bedside. Patient has mild shortness of breath on exertion, dizziness on exertion for 3 to 4 weeks. Denies chest pain or pressure. Blood pressure was high 172/77 about 9 AM patient got morning antihypertensive medications including Dyazide, Coreg and lisinopril and her blood pressure dropped to 104/49, heart rate 67 on left arm and 94/52, heart rate 66 on right arm. Patient does not have chest pain. On head custodian sinus rhythm. Occasional PVCs. Physical exam General: Alert, Oriented x3, Cooperative HEENT: Atraumatic, PERRLA, EOMI, Normocephalic Oral: No Gingival or Mucosal Lesions/ Ulcerations Neck: Supple, No JVD, Negative Carotid Bruits Lungs: Air entry diminished in bilateral lung bases. No crepitation/rhonchi Cardiovascular: Regular rate, Regular Rhythm, Normal S1, Normal S2, No murmurs Abdomen: Bowel Sounds Present, Soft, Non Tender, Non-Distended : No renal angle tenderness. No suprapubic tenderness. Extremities: Mild bilateral ankle edema, Capillary Refill Less than 3 Seconds Skin: No rashes, No breakdown Musculoskeletal: No Tenderness to Palpation of Joints or Extremities Neurological: Cranial nerves II-XII grossly intact, Deep Tendon Reflexes 2+/4 and Symmetrical, Neuro grossly intact Psych/Mental Status: Normal Affect, Appropriate. Vitals/I&O's: Vital Signs Temp Pulse Resp BP Pulse Ox 98.2 F 79 16 94/52 L 98 09/03/20 08:53 09/03/20 11:20 09/03/20 08:53 09/03/20 12:35 09/03/20 08:53 Oxygen Delivery Method Room Air Weight: 130 lb 8 oz Body Mass Index (BMI) 22.4 Intake and Output for Last 24 Hours 09/01/20 09/02/20 09/03/20 23:59 23:59 23:59 Intake Total 600 / 600 Balance 600 / 600 Laboratory Results 09/02/20 16:21: Total Bilirubin 0.40, Direct Bilirubin < 0.05, AST 21, ALT 28, Alkaline Phosphatase 119 H, Total Protein 8.2, Albumin 3.8, Globulin 4.4 H 09/02/20 16:21: WBC 6.7, RBC 4.22, Hgb 12.5, Hct 39.0, MCV 92.4, MCH 29.6, MCHC 32.1, RDW Std Deviation 42.6, RDW Coeff of Aly 12.6, Plt Count 390, MPV 9.4, Immature Gran % (Auto) 0.300, Neut % (Auto) 57.9, Lymph % (Auto) 34.3, [place] % (Auto) 5.3, Eos % (Auto) 1.6, Baso % (Auto) 0.6, Absolute Neuts (auto) 3.9, Absolute Lymphs (auto) 2.31, Nucleated RBC % 0 09/02/20 16:21: Sodium 138, Potassium 4.0, Chloride 105, Carbon Dioxide 29.0, Anion Gap 4 L, BUN 20 H, Creatinine 0.74, Estim Creat Clear Calc 41.05, Est GFR (MDRD) Af Amer 96, Est GFR (MDRD) Non-Af 80, BUN/Creatinine Ratio 26.8 H, Glucose 99, Calcium 9.4, Magnesium 2.2, Troponin I < 0.015 09/03/20 07:27: WBC 6.0, RBC 3.74 L, Hgb 10.9 L, Hct 34.9 L, MCV 93.3, MCH 29.1, MCHC 31.2 L, RDW Std Deviation 43.3, RDW Coeff of Aly 12.7, Plt Count 375, MPV 10.0, Immature Gran % (Auto) 0.200, Neut % (Auto) 36.3 L, Lymph % (Auto) 51.9 H, [place] % (Auto) 8.3, Eos % (Auto) 3.0, Baso % (Auto) 0.3, Absolute Neuts (auto) 2.2, Absolute Lymphs (auto) 3.11, Nucleated RBC % 0 09/03/20 07:27: Sodium 140, Potassium 3.7, Chloride 105, Carbon Dioxide 27.0, Anion Gap 8, BUN 22 H, Creatinine 0.77, Estim Creat Clear Calc 41.05, Est GFR (MDRD) Af Amer 92, Est GFR (MDRD) Non-Af 76, BUN/Creatinine Ratio 28.4 H, Glucose 110 H, Calcium 8.7 Current Medications Acetaminophen (Acetaminophen 325 Mg Tablet) 650 mg PO Q6H PRN PRN PRN Reason: Pain Score 1-10/Temp > 100.7 F Last Admin: 09/03/20 00:55 Dose: 650 mg Documented by: Aspirin (Aspirin 81 Mg Tab.Chew) 81 mg PO DAILY@0800 [facility] Last Admin: 09/03/20 09:07 Dose: 81 mg Documented by: Atorvastatin Calcium (Atorvastatin Calcium 20 Mg Tablet) 20 mg PO QHS [facility] Carvedilol (Carvedilol 25 Mg Tablet) 12.5 mg PO BID [facility] Clopidogrel Bisulfate (Clopidogrel Bisulfate 75 Mg Tablet) 75 mg PO DAILY [facility] Last Admin: 09/03/20 09:08 Dose: 75 mg Documented by: Enoxaparin Sodium (Enoxaparin 40 Mg/0.4 Ml Syringe) 40 mg SC DAILY [facility] Last Admin: 09/03/20 09:11 Dose: 40 mg Documented by: Sodium Chloride () 250 mls @ 15 mls/hr IV .[id number] PRN PRN Reason: Saline Flush Sodium Chloride () 250 mls @ 15 mls/hr IV .[id number] PRN PRN Reason: Additional IVPB Infusion Isosorbide Mononitrate (Isosorbide Mononitrate 60 Mg Tablet) 30 mg PO DAILY [facility] Lisinopril (Lisinopril 5 Mg Tablet) 5 mg PO DAILY [facility] Melatonin (Melatonin 3 Mg Tablet) 3 mg PO QHS PRN PRN PRN Reason: INSOMNIA Ondansetron HCl (Ondansetron 4 Mg/2 Ml Vial) 4 mg IV Q8H PRN PRN PRN Reason: NAUSEA/VOMITING Last Admin: 09/03/20 00:54 Dose: 4 mg Documented by: Oxycodone HCl (Oxycodone 5 Mg Tablet) 10 mg PO Q8H PRN PRN PRN Reason: Pain Score 4-10 Last Admin: 09/03/20 00:55 Dose: 10 mg Documented by: Pantoprazole Sodium (Pantoprazole Sodium 40 Mg Tablet) 40 mg PO DAILY [facility] Last Admin: 09/03/20 09:08 Dose: 40 mg Documented by: Pramipexole Dihydrochloride (Pramipexole Di-Hcl 0.5 Mg Tablet) 0.5 mg PO BIDCM [facility] Last Admin: 09/03/20 09:07 Dose: 0.5 mg Documented by: Sodium Chloride (0.9% Saline Lock 10 Ml Syringe) 10 - 40 ml IV UD PRN PRN Reason: SALINE FLUSH Last Admin: 09/03/20 00:54 Dose: 10 ml Documented by: Triamterene/Hydrochlorothiazide (Triamterene 37.5mg/Hctz 25mg Capsule) 1 cap PO DAILY [facility] Vital Signs/Narrative: Vital Signs Pulse BP BP 09/03/20 12:35 104/49 L 94/52 L 09/03/20 11:20 79 Medical Necessity - Tobacco Use Smoking Status: Never smoker Assessment/Plan All Active Problems (Last Reviewed 04/08/20 @ 14:[address] Ted Herring, DO) Hypertensive urgency (Acute) Chest pain (Acute) Hypertensive urgency (Resolved 04/09/20) History of coronary artery stent placement (Resolved 04/14/19) Atypical chest pain (Resolved) Hypertension (Resolved) Other chest pain (Resolved) This is a 79-year-old female with history of hypertension, headache admitted with high blood pressure 226/117, heart rate 97/min in ED. Patient also has mild dyspnea on exertion, dizziness for 3 to 4 weeks. 1. Hypertensive urgency, with hypotension probably secondary to antihypertensive medications or labile hypertension: Patient is being admitted in PCU. Patient had drop in blood pressure at around noontime after morning home dose of antihypertensive medication Coreg, lisinopril, isosorbide mononitrate and Dyazide. Twelve-lead EKG in a.m. shows normal sinus rhythm, LAD no significant ST-T changes at 74 beats per. QTC 420 ms. Repeat EKG is similar with no obvious ST-T changes or arrhythmia. Repeat troponin ordered. Discussed with hotel or motel receptionist Dr. Egan. Antihypertensive medications spaced out and dose is decreased with holding parameters. Patient had echo in December 2019 and reported EF 70% with no major valvular abnormality. Patient also had cath which showed EF 60% normal LV systolic function. D1 ostial 70%. Mid LAD stent and proximal RCA stents patent. Orthostatic blood pressure ordered. Clonidine was not given. 2. Coronary artery status post stents: Patient on baby aspirin, Plavix, lisinopril, statin and Imdur. Rest as mentioned above 3. History of SVT, dyslipidemia: Currently, head custodian shows sinus rhythm. No significant arrhythmia observed. 4. GERD 5. VTE prophylaxis on Lovenox 40 mg subcu daily. Inpatient E&M: 35868 Subs Hosp L2
--- NOTE | 2020-09-03 16:26 | PCM.CONS.C ---
Reason for Consult Date of Consultation: 09/03/20 Reason for Consultation: HTN, CP History of Present Illness: The patient is a 79 year old F [to the emergency room with elevated blood pressure. She was also complaining of headache and on and off chest pain and worsening dyspnea on exertion. Patient had an episode this morning where her blood pressure went down. Her medications have been adjusted. Patient had a similar presentation in December 2019 and also around April 2020 with similar issues. In December she had coronary angiography which revealed patent stents and residual disease that did not require revascularization. Patient does say that her shortness of breath is getting worse. Review of systems: All systems reviewed. All else is negative except that in HPI] Past Medical History Allergies/Adverse Reactions: Allergies diazepam [From Valium] Allergy (Verified 09/02/20 15:01) SEIZURES gabapentin Allergy (Verified 09/02/20 15:01) HYPER promethazine Allergy (Verified 09/02/20 15:01) PT UNSURE OF REACTION zolpidem Allergy (Verified 09/02/20 15:01) INSOMNIA Home Medications: Ambulatory Orders Medication Instructions Recorded Pantoprazole Sodium [Protonix] 40 mg PO DAILY 06/20/17 Aspirin [Aspirin, Baby] 81 mg PO DAILY@0800 05/05/18 acetaminophen 500 mg tablet 1,000 mg PO Q8H 01/27/20 fluticasone propionate 50 2 spray INTRANASAL DAILY 01/27/20 mcg/actuation nasal spray,suspension nitroglycerin 0.4 mg sublingual 0.4 mg SUBLINGUAL Q5-15M PRN 01/27/20 tablet oxycodone 10 mg tablet 10 mg PO Q8H PRN 01/27/20 triamterene 37.5 1 cap PO DAILY 01/27/20 mg-hydrochlorothiazide 25 mg capsule Pramipexole Di-HCl [Pramipexole 0.5 mg PO BID 04/08/20 Dihydrochloride] clopidogrel 75 mg tablet 75 mg PO DAILY #30 tab 04/12/20 atorvastatin 20 mg tablet 20 mg PO QHS #90 tab 05/18/20 isosorbide mononitrate 60 mg 60 mg PO DAILY #90 tab 05/18/20 tablet,extended release 24 hr Carvedilol 25 mg PO BID 09/02/20 Cetirizine HCl [Zyrtec] 10 mg PO DAILY 09/02/20 Lisinopril 5 mg PO DAILY 09/02/20 Past Medical History (Chronic Problems): Chronic Problems (Last Reviewed 04/08/20 @ 14:[address] 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 Ted Herring DO) Father CAD (coronary artery disease) Hypertension CVA (cerebral vascular accident) CHF (congestive heart failure) Mother CAD (coronary artery disease) Hypertension Lung cancer History Items: Heart Disease Paternal Family History: Family History (Last Reviewed 04/08/20 @ 14:[address] Ted Herring DO) Father CAD (coronary artery disease) Hypertension CVA (cerebral vascular accident) CHF (congestive heart failure) Mother CAD (coronary artery disease) Hypertension Lung cancer History Items: Heart Disease Smoking Status: Never smoker Alcohol: None Drugs: None Objective: Vital Signs Temp Pulse Resp BP Pulse Ox 97.5 F L 78 16 118/54 L 95 09/03/20 15:00 09/03/20 15:00 09/03/20 15:00 09/03/20 15:00 09/03/20 15:00 Oxygen Delivery Method Room Air Weight: 130 lb 8.007 oz Body Mass Index (BMI) 22.4 Orthostatic Vital Signs Start: 09/03/20 15:05 Freq: q24h Status: Active Protocol: Activity Type Activity Date Activity User E-Sign Co-Sign Detail Recorded Client Recorded Date Recorded By Document 09/03/20 15:00 [facility] [id number] 09/03/20 15:17 [facility] [place] 15:00 Orthostatic Vitals Standing -Blood Pressure (90/60-120/80) 108/70 -Extremity Use Right Arm -Pulse Rate (60-100) 87 Sitting -Blood Pressure (90/60-120/80) 106/58 L -Extremity Use Right Arm -Pulse Rate (60-100) 77 Lying -Blood Pressure (90/60-120/80) 118/54 L -Extremity Use Right Arm -Pulse Rate (60-100) 78 Intake and Output for Last 24 Hours 09/01/20 09/02/20 09/03/20 23:59 23:59 23:59 Intake Total 600 / 600 Balance 600 / 600 General: Awake, Alert, Oriented x 3 HEENT: Atraumatic Oral: Moist Mucosa Neck: Supple Lungs: Clear to auscultation Cardiovascular: Regular Rhythm Abdomen: Soft Skin: No Rashes Psych/Mental Status: Appropriate 09/02/20 16:21: Total Bilirubin 0.40, Direct Bilirubin < 0.05 09/02/20 16:21: WBC 6.7, RBC 4.22, Hgb 12.5, Hct 39.0, MCV 92.4, MCH 29.6, MCHC 32.1, Plt Count 390, MPV 9.4, Immature Gran % (Auto) 0.300, Neut % (Auto) 57.9, Lymph % (Auto) 34.3, [place] % (Auto) 5.3, Eos % (Auto) 1.6, Baso % (Auto) 0.6, Absolute Neuts (auto) 3.9, Nucleated RBC % 0 09/02/20 16:21: Sodium 138, Potassium 4.0, Chloride 105, Carbon Dioxide 29.0, Anion Gap 4 L, BUN 20 H, Creatinine 0.74, Est GFR (MDRD) Af Amer 96, Est GFR (MDRD) Non-Af 80, BUN/Creatinine Ratio 26.8 H, Glucose 99, Calcium 9.4, Magnesium 2.2, Troponin I < 0.015 09/03/20 07:27: WBC 6.0, RBC 3.74 L, Hgb 10.9 L, Hct 34.9 L, MCV 93.3, MCH 29.1, MCHC 31.2 L, Plt Count 375, MPV 10.0, Immature Gran % (Auto) 0.200, Neut % (Auto) 36.3 L, Lymph % (Auto) 51.9 H, [place] % (Auto) 8.3, Eos % (Auto) 3.0, Baso % (Auto) 0.3, Absolute Neuts (auto) 2.2, Nucleated RBC % 0 09/03/20 07:27: Sodium 140, Potassium 3.7, Chloride 105, Carbon Dioxide 27.0, Anion Gap 8, BUN 22 H, Creatinine 0.77, Est GFR (MDRD) Af Amer 92, Est GFR (MDRD) Non-Af 76, BUN/Creatinine Ratio 28.4 H, Glucose 110 H, Calcium 8.7 Rhythm: EKG: ECHO: Stress Test: Cardiac Cath: PCI: CT Surgery: Holter monitor: EPS: PPM: CXR: Chest CT Scan: Assessment/Plan 1. Hypertensive urgency: Patient's medications were restarted and she had an episode of low blood pressure this morning. Her medications have been adjusted. Will monitor this. 2. Chest pain and worsening dyspnea on exertion: Patient had coronary angiography in December 2019 for similar presentation and did not require any revascularization. 2D echo at that time was unremarkable. EF was preserved. Will monitor. If patient continues to have symptoms despite controlled blood pressure been we could consider a stress test.
--- NOTE | 2020-09-03 22:47 | PCS.PANDOC ---
PANDEMIC DOCUMENTATION INITIATED: Date: 09/02/20 Time: 20:42
[2020-09-04] VITALS (10 sets, daily range): BP systolic 101–155; BP diastolic 54–68; PULSE 74–88; RESP 16–19; TEMP 36.6–36.9; O2SAT 94–98
[2020-09-04] MEDS: Acetaminophen 325 MG Tablet 650 MG PO ×2 (02:23→20:32)
[2020-09-04 04:03] LABS: Absolute Lymphocyte Count 2.19 X10^3/uL (0.83-4.51); Absolute Neutrophil Count 3.6 X10^3/uL (2.0-7.7); Basophil# 0.02 X10^3/uL; Basophil% 0.3 % (0-1); Eosinophil# 0.17 X10^3/uL; Eosinophils% 2.6 % (0-5); Hematocrit 34.9 % (37-47); Hemoglobin 10.7 g/dL (12.0-15.0); Lymphocyte # 2.19 X10^3/ul (4.0); Mean Corp Hgb Conc 30.7 g/dL (32-36); Mean Corpuscular Hgb 29.1 pg (27.0-32.0); Mean Corpuscular Volume 94.8 fL (81-99); Mean Platelet Vol. 9.5 fl (6.2-12.0); Monocyte# 0.45 X10^3/uL; NRBC Flagged by Analyzer 0 % (0-5); Neutrophil % 55.9 % (47-70); Platelet Count 326 K/mm3 (150-450); RBC Distribution Width CV 12.8 % (11.6-14.6); RBC Distribution Width SD 44.6 fl (35.1-43.9); Red Blood Count 3.68 M/mm3 (4.2-5.4); White Blood Count 6.4 K/mm3 (4.4-11.0)
[2020-09-04 04:23] LABS: Anion Gap 6 (5-15); BUN 26 mg/dL (7-18); BUN/Creat Ratio 24.1 RATIO (10-20); Calcium,Total 8.5 mg/dL (8.5-10.1); Chloride 104 mmol/L (98-107); Creatinine, Serum 1.08 mg/dL (0.55-1.02); EST Glomerular Filtration Rate 52 mL/min (>60); Est Glom Filt Rate - Afr Amer 63 mL/min (>60); Estimated Creatinine Clearance 38.01 ml/min; Glucose 92 mg/dL (74-106); Magnesium 2.2 mg/dL (1.6-2.6); Phosphorus 3.7 mg/dL (2.5-4.9); Sodium Level 138 mmol/L (136-145)
[2020-09-04] MEDS: oxyCODONE 5 MG Tablet 10 MG PO ×2 (05:33→20:31)
[2020-09-04] MEDS: Aspirin 81 MG TAB.CHEW PO (09:40)
[2020-09-04] MEDS: Pramipexole Di-HCl 0.5 MG Tablet PO ×2 (09:40→17:25)
[2020-09-04] MEDS: Carvedilol 12.5 MG Tablet PO ×2 (09:41→21:45)
[2020-09-04] MEDS: Enoxaparin 40 MG/0.4 ML Syringe SC (09:41)
[2020-09-04] MEDS: Clopidogrel Bisulfate 75 MG Tablet PO (09:42)
[2020-09-04] MEDS: Lisinopril 5 MG Tablet PO (09:42)
[2020-09-04] MEDS: Pantoprazole Sodium 40 MG Tablet PO (09:42)
[2020-09-04] MEDS: Isosorbide Mononitrate 30 MG Tablet PO (12:56)
--- NOTE | 2020-09-04 14:00 | PN_ITS ---
Patient Problems: Active and Suspected Problems (Last Reviewed 04/08/20 @ 14:[address] Ted Herring, DO) Hypertensive urgency (Acute) Chest pain (Acute) Reason for Visit: Follow-up for hypertensive urgency and anginal symptoms Objective: Heart rate and blood pressure are controlled. No orthostatic drop in blood pressure or heart rate. Patient states she gets dizzy, short of breath on walking and sometimes chest pain/pressure Physical exam General: Alert, Oriented x3, Cooperative HEENT: Atraumatic, PERRLA, EOMI, Normocephalic Oral: No Gingival or Mucosal Lesions/ Ulcerations Neck: Supple, No JVD, Negative Carotid Bruits Lungs: Air entry diminished in bilateral lung bases. No crepitation/rhonchi Cardiovascular: Regular rate, Regular Rhythm, Normal S1, Normal S2, No murmurs Abdomen: Bowel Sounds Present, Soft, Non Tender, Non-Distended : No renal angle tenderness. No suprapubic tenderness. Extremities: No edema, Capillary Refill Less than 3 Seconds Skin: No rashes, No breakdown Musculoskeletal: No Tenderness to Palpation of Joints or Extremities Neurological: Cranial nerves II-XII grossly intact, Deep Tendon Reflexes 2+/4 and Symmetrical, Neuro grossly intact Psych/Mental Status: Normal Affect, Appropriate. Vitals/I&O's: Vital Signs Temp Pulse Resp BP Pulse Ox 98.2 F 80 19 H 136/54 H 98 09/04/20 08:55 09/04/20 08:55 09/04/20 08:55 09/04/20 08:55 09/04/20 08:55 Oxygen Delivery Method Room Air Weight: 130 lb 8.007 oz Body Mass Index (BMI) 22.4 Orthostatic Vital Signs Start: 09/03/20 15:05 Freq: q24h Status: Active Protocol: Activity Type Activity Date Activity User E-Sign Co-Sign Detail Recorded Client Recorded Date Recorded By Document 09/04/20 05:25 MELODIE [id number] 09/04/20 05:30 KK 09/04/20 05:25 Orthostatic Vitals Standing -Blood Pressure (90/60-120/80) 131/60 H -Extremity Use Right Arm -Pulse Rate (60-100) 86 Sitting -Blood Pressure (90/60-120/80) 134/54 H -Extremity Use Right Arm -Pulse Rate (60-100) 78 Lying -Blood Pressure (90/60-120/80) 140/58 H -Extremity Use Right Arm -Pulse Rate (60-100) 81 Intake and Output for Last 24 Hours 09/02/20 09/03/20 09/04/20 23:59 23:59 23:59 Intake Total 1570 / 1570 240 / 240 Balance 1570 / 1570 240 / 240 Laboratory Results 09/03/20 15:33: Troponin I < 0.015 09/04/20 03:39: WBC 6.4, RBC 3.68 L, Hgb 10.7 L, Hct 34.9 L, MCV 94.8, MCH 29.1, MCHC 30.7 L, RDW Std Deviation 44.6 H, RDW Coeff of Aly 12.8, Plt Count 326, MPV 9.5, Immature Gran % (Auto) 0.200, Neut % (Auto) 55.9, Lymph % (Auto) 34.0, [place] % (Auto) 7.0, Eos % (Auto) 2.6, Baso % (Auto) 0.3, Absolute Neuts (auto) 3.6, Absolute Lymphs (auto) 2.19, Nucleated RBC % 0 09/04/20 03:39: Sodium 138, Potassium 4.0, Chloride 104, Carbon Dioxide 28.0, Anion Gap 6, BUN 26 H, Creatinine 1.08 H, Estim Creat Clear Calc 38.01, Est GFR (MDRD) Af Amer 63, Est GFR (MDRD) Non-Af 52 L, BUN/Creatinine Ratio 24.1 H, Glucose 92, Calcium 8.5, Phosphorus 3.7, Magnesium 2.2 Current Medications Acetaminophen (Acetaminophen 325 Mg Tablet) 650 mg PO Q6H PRN PRN PRN Reason: Pain Score 1-10/Temp > 100.7 F Last Admin: 09/04/20 02:23 Dose: 650 mg Documented by: Aspirin (Aspirin 81 Mg Tab.Chew) 81 mg PO DAILY@0800 [facility] Last Admin: 09/04/20 09:40 Dose: 81 mg Documented by: Atorvastatin Calcium (Atorvastatin Calcium 20 Mg Tablet) 20 mg PO QHS [facility] Last Admin: 09/03/20 21:56 Dose: Not Given Documented by: Carvedilol (Carvedilol 12.5 Mg Tablet) 12.5 mg PO BID [facility] Last Admin: 09/04/20 09:41 Dose: 12.5 mg Documented by: Clopidogrel Bisulfate (Clopidogrel Bisulfate 75 Mg Tablet) 75 mg PO DAILY [facility] Last Admin: 09/04/20 09:42 Dose: 75 mg Documented by: Enoxaparin Sodium (Enoxaparin 40 Mg/0.4 Ml Syringe) 40 mg SC DAILY [facility] Last Admin: 09/04/20 09:41 Dose: 40 mg Documented by: Sodium Chloride () 250 mls @ 15 mls/hr IV .[id number] PRN PRN Reason: Saline Flush Sodium Chloride () 250 mls @ 15 mls/hr IV .[id number] PRN PRN Reason: Additional IVPB Infusion Isosorbide Mononitrate (Isosorbide Mononitrate 30 Mg Tablet) 30 mg PO DAILY@1200 [facility] Last Admin: 09/04/20 12:56 Dose: 30 mg Documented by: Lisinopril (Lisinopril 5 Mg Tablet) 5 mg PO DAILY [facility] Last Admin: 09/04/20 09:42 Dose: 5 mg Documented by: Melatonin (Melatonin 3 Mg Tablet) 3 mg PO QHS PRN PRN PRN Reason: INSOMNIA Nutritional Formula (Lactose Free) (Ensure Enlive 120 Ml Liquid) 120 ml PO TIDCM [facility] Last Admin: 09/04/20 12:56 Dose: 120 ml Documented by: Ondansetron HCl (Ondansetron 4 Mg/2 Ml Vial) 4 mg IV Q8H PRN PRN PRN Reason: NAUSEA/VOMITING Last Admin: 09/03/20 20:59 Dose: 4 mg Documented by: Oxycodone HCl (Oxycodone 5 Mg Tablet) 10 mg PO Q8H PRN PRN PRN Reason: Pain Score 4-10 Last Admin: 09/04/20 05:33 Dose: 10 mg Documented by: Pantoprazole Sodium (Pantoprazole Sodium 40 Mg Tablet) 40 mg PO DAILY [facility] Last Admin: 09/04/20 09:42 Dose: 40 mg Documented by: Pramipexole Dihydrochloride (Pramipexole Di-Hcl 0.5 Mg Tablet) 0.5 mg PO BIDCM [facility] Last Admin: 09/04/20 09:40 Dose: 0.5 mg Documented by: Sodium Chloride (0.9% Saline Lock 10 Ml Syringe) 10 - 40 ml IV UD PRN PRN Reason: SALINE FLUSH Last Admin: 09/03/20 20:59 Dose: 20 ml Documented by: Medical Necessity - Tobacco Use Smoking Status: Never smoker Assessment/Plan All Active Problems (Last Reviewed 04/08/20 @ 14:[address] Ted Herring, DO) Hypertensive urgency (Acute) Chest pain (Acute) Hypertensive urgency (Resolved 04/09/20) History of coronary artery stent placement (Resolved 04/14/19) Atypical chest pain (Resolved) Hypertension (Resolved) Other chest pain (Resolved) This is a 79-year-old female with history of hypertension, headache admitted with high blood pressure 226/117, heart rate 97/min in ED. Patient also has mild dyspnea on exertion, dizziness for 3 to 4 weeks. 1. Hypertensive urgency, with hypotension probably secondary to antihypertensive medications or labile hypertension: Patient is being admitted in PCU. Patient had drop in blood pressure at around noontime after morning home dose of antihypertensive medication Coreg, lisinopril, isosorbide mononitrate and Dyazide. Twelve-lead EKG in a.m. shows normal sinus rhythm, LAD no significant ST-T changes at 74 beats per. QTC 420 ms. Repeat EKG is similar with no obvious ST-T changes or arrhythmia. Discussed with developmental services worker Dr. Egan. Antihypertensive medications spaced out and dose is decreased with holding parameters. Patient had echo in December 2019 and reported EF 70% with no major valvular abnormality. Patient also had cath which showed EF 60% normal LV systolic function. D1 ostial 70%. Mid LAD stent and proximal RCA stents patent. 09/04/20: Orthostatic blood pressure was negative for significant change in heart rate or blood pressure. Troponin negative. Stress test ordered for tomorrow a.m. Orthostatic blood pressure ordered. Clonidine was not given. 2. Coronary artery status post stents: Patient on baby aspirin, Plavix, lisinopril, statin and Imdur. Rest as mentioned above 3. 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 No significant arrhythmia observed. 4. GERD 5. VTE prophylaxis on Lovenox 40 mg subcu daily. Signout: Discharge tomorrow a.m. if stress test negative Inpatient E&M: [id number] Subs Hosp L2
--- NOTE | 2020-09-04 15:22 | PN.CARD_ITS ---
Subjectve: Patient's symptoms and blood pressure have improved. Objective: Vital Signs Temp Pulse Resp BP Pulse Ox 98.2 F 80 19 H 136/54 H 98 09/04/20 08:55 09/04/20 08:55 09/04/20 08:55 09/04/20 08:55 09/04/20 08:55 Oxygen Delivery Method Room Air Weight: 130 lb 8.007 oz Body Mass Index (BMI) 22.4 Orthostatic Vital Signs Start: 09/03/20 15:05 Freq: q24h Status: Active Protocol: Activity Type Activity Date Activity User E-Sign Co-Sign Detail Recorded Client Recorded Date Recorded By Document 09/04/20 05:25 MELODIE [id number] 09/04/20 05:30 KK 09/04/20 05:25 Orthostatic Vitals Standing -Blood Pressure (90/60-120/80) 131/60 H -Extremity Use Right Arm -Pulse Rate (60-100) 86 Sitting -Blood Pressure (90/60-120/80) 134/54 H -Extremity Use Right Arm -Pulse Rate (60-100) 78 Lying -Blood Pressure (90/60-120/80) 140/58 H -Extremity Use Right Arm -Pulse Rate (60-100) 81 Intake and Output for Last 24 Hours 09/02/20 09/03/20 09/04/20 23:59 23:59 23:59 Intake Total 1570 / 1570 790 / 790 Balance 1570 / 1570 790 / 790 General: Awake, Alert HEENT: Atraumatic Oral: Moist Mucosa Neck: Supple Psych/Mental Status: Appropriate 09/03/20 15:33: Troponin I < 0.015 09/04/20 03:39: WBC 6.4, RBC 3.68 L, Hgb 10.7 L, Hct 34.9 L, MCV 94.8, MCH 29.1, MCHC 30.7 L, Plt Count 326, MPV 9.5, Immature Gran % (Auto) 0.200, Neut % (Auto) 55.9, Lymph % (Auto) 34.0, [place] % (Auto) 7.0, Eos % (Auto) 2.6, Baso % (Auto) 0.3, Absolute Neuts (auto) 3.6, Nucleated RBC % 0 09/04/20 03:39: Sodium 138, Potassium 4.0, Chloride 104, Carbon Dioxide 28.0, Anion Gap 6, BUN 26 H, Creatinine 1.08 H, Est GFR (MDRD) Af Amer 63, Est GFR (MDRD) Non-Af 52 L, BUN/Creatinine Ratio 24.1 H, Glucose 92, Calcium 8.5, Phosphorus 3.7, Magnesium 2.2 Rhythm: EKG: ECHO: Stress Test: Cardiac Cath: PCI: CT Surgery: Holter monitor: EPS: PPM: CXR: Chest CT Scan: Medical Necessity - Tobacco Use Smoking Status: Never smoker Assessment/Plan 1. Hypertensive urgency: Blood pressure is reasonable with current regimen. Will monitor. 2. Chest pain and worsening dyspnea on exertion: Patient had coronary angiography in December 2019 for similar presentation and did not require any revascularization. 2D echo at that time was unremarkable. Stress test has been ordered which is reasonable. If this does not have significant large areas of ischemia then patient can be treated medically at this time.
[2020-09-04] MEDS: Ondansetron 4 MG/2 ML Vial IV (18:27)
[2020-09-04] MEDS: Atorvastatin Calcium 20 MG Tablet PO (21:45)
[2020-09-05 03:00] VITALS: PULSE 69
[2020-09-05 03:40] VITALS: BP 138/67; PULSE 74; RESP 16; TEMP 36.8; O2SAT 97
[2020-09-05 05:38] VITALS: BP 145/78; BP 151/81; BP 177/78; PULSE 75; PULSE 76; PULSE 87; RESP 16; TEMP 36.7; O2SAT 97
[2020-09-05] MEDS: Lisinopril 5 MG Tablet PO (05:49)
--- NOTE | 2020-09-05 05:55 | EKG12_ITS ---
Test Reason : AM EKG Blood Pressure : / mmHG Vent. Rate : 072 BPM Atrial Rate : 072 BPM P-R Int : 152 ms QRS Dur : 072 ms QT Int : 388 ms P-R-T Axes : 054 -31 007 degrees QTc Int : 424 ms Normal sinus rhythm Left axis deviation Inferior infarct , age undetermined Abnormal ECG When compared with ECG of 03-SEP-2020 13:01, MANUAL COMPARISON REQUIRED, DATA IS UNCONFIRMED Confirmed by IRMA LION, JEREMY ([id number]), manager editorial JEAN PIERRE CORBETT ([id number]) on 09/06/2020 8:49:34 AM Referred By: DR CARVALHO Confirmed By:JEREMY SOLIS MD
[2020-09-05 06:24] LABS: Anion Gap 6 (5-15); BUN 23 mg/dL (7-18); BUN/Creat Ratio 25.8 RATIO (10-20); Calcium,Total 8.9 mg/dL (8.5-10.1); Chloride 105 mmol/L (98-107); Creatinine, Serum 0.89 mg/dL (0.55-1.02); EST Glomerular Filtration Rate 65 mL/min (>60); Est Glom Filt Rate - Afr Amer 78 mL/min (>60); Estimated Creatinine Clearance 46.12 ml/min; Glucose 97 mg/dL (74-106); Potassium 4.3 mmol/L (3.5-5.1); Sodium Level 138 mmol/L (136-145)
[2020-09-05 07:00] VITALS: PULSE 74
--- NOTE | 2020-09-05 10:23 | STRESSREP ---
Stress Test Report Pharmacologic myocardial perfusion stress test. 79-year-old lady with a history of coronary artery disease and chest pain. Stress protocol: Resting EKG demonstrates normal sinus rhythm with a rate of 81 bpm normal intervals are noted resting blood pressure is 176/100 mmHg. 0.4 mg of regadenoson was infused per usual protocol followed by rapid intravenous saline flush injection continuous EKG monitoring was performed. The maximum heart rate attained was 110 bpm which was 78% of max impacted heart rate the maximum workload was 1 metabolic equivalent. At rest there were no ST or T wave changes noted to suggest abnormal flow reserve at peak infusion nonspecific ST-T wave changes were noted. No clinical angina was noted the test was terminated due to leg fatigue. Myocardial perfusion protocol. 11.0 mCi of technetium 99m sestamibi was injected at rest. 0.4 mg of regadenoson was infused per usual protocol. At peak infusion 33.1 mCi of technetium 99m sestamibi was injected stress images were obtained stress and rest images were reconstructed and compared in the short axis vertical long horizontal long axis. Gated images were also obtained Perfusion SPECT analysis: Review of the stress images demonstrate normal uptake of tracer noted in all areas of the myocardium the resting images similarly demonstrate normal uptake of tracer noted in all areas of the myocardium. No areas of reversibility are noted suggest ischemia. Gated SPECT analysis: The gated ejection fraction is 79%. Conclusion: Normal pharmacologic myocardial perfusion stress test. Preserved ejection fraction.
--- NOTE | 2020-09-05 10:35 | CASEMGMT ---
RN CM Face to Face with patient for initial transition planning/care coordination assessment. RN CM introduced self and role at [facility]. Patient lying in bed, alert and oriented. Patient willing to participate in assessment and is able to answer all questions appropriately. Care providers, pharmacy, and demographics verified. Patient wishes to discharge home, denies need for home health at this time. Patient states she has no further needs or concerns at this time. CM to follow for discharge planning needs that may arise. PCP: [facility] Specialists: none Preferred Pharmacy: [facility] Insurance: Latia PÉREZ Prescription Benefit: yes Living Will/HPOA: none LNOK: Living Arrangements: Patient lives with in a 1 story home with 3 steps and railing to enter the home. Patient states she is independent at home. Transportation: self/ DME/HHC: Patient states she has shower chair, cane, walker, and wheel chair, at home. Patient denies previous HHC Disposition Plan: Patient to discharge home with family support and follow-up plans in place. Tabitha BORREGO, RN, CM
[2020-09-05] MEDS: Enoxaparin 40 MG/0.4 ML Syringe SC (10:37)
[2020-09-05] MEDS: Pramipexole Di-HCl 0.5 MG Tablet PO (10:38)
[2020-09-05] MEDS: Carvedilol 12.5 MG Tablet PO (10:38)
[2020-09-05] MEDS: Aspirin 81 MG TAB.CHEW PO (10:38)
[2020-09-05] MEDS: Clopidogrel Bisulfate 75 MG Tablet PO (10:39)
[2020-09-05] MEDS: Pantoprazole Sodium 40 MG Tablet PO (10:39)
[2020-09-05 10:45] VITALS: BP 162/87; PULSE 73; RESP 18; TEMP 36.8; O2SAT 98
[2020-09-05] MEDS: Ondansetron 4 MG/2 ML Vial IV (10:51)
--- NOTE | 2020-09-05 11:03 | PCM.DC ---
- Discharge Diagnoses Current Active Problems: Current Active and Chronic Problems (Last Reviewed 04/08/20 @ 14:[address] Ted Herring, DO) Hypertensive urgency (Acute) Chest pain (Acute) You will use the following diet at home:: Cardiac Discharge Activity: Return to Normal Activity Call your doctor if you observe: Shortness of breath, Dizziness, Fainting spells, Chest pain Additional Instructions: Take blood pressure twice a day, morning and night and document findings. Take blood pressure recordings to follow up cardiology appointment. If systolic blood pressure (top number) is greater 180, notify cardiology office. Allergies/Adverse Reactions: Allergies diazepam [From Valium] Allergy (Verified 09/02/20 15:01) SEIZURES gabapentin Allergy (Verified 09/02/20 15:01) HYPER promethazine Allergy (Verified 09/02/20 15:01) PT UNSURE OF REACTION zolpidem Allergy (Verified 09/02/20 15:01) INSOMNIA Medications to take at Discharge Pantoprazole Sodium [Protonix] 40 mg PO DAILY 06/20/17 Aspirin [Aspirin, Baby] 81 mg PO DAILY@0800 05/05/18 acetaminophen 500 mg tablet 1,000 mg PO Q8H 01/27/20 fluticasone propionate 50 mcg/actuation nasal spray,suspension 2 spray INTRANASAL DAILY 01/27/20 nitroglycerin 0.4 mg sublingual tablet 0.4 mg SUBLINGUAL Q5-15M PRN 01/27/20 oxycodone 10 mg tablet 10 mg PO Q8H PRN 01/27/20 Pramipexole Di-HCl [Pramipexole Dihydrochloride] 0.5 mg PO BID 04/08/20 clopidogrel 75 mg tablet 75 mg PO DAILY #30 tab 04/12/20 atorvastatin 20 mg tablet 20 mg PO QHS #90 tab 05/18/20 Cetirizine HCl [Zyrtec] 10 mg PO DAILY 09/02/20 Lisinopril 5 mg PO DAILY 09/02/20 Carvedilol [Coreg (Beta Angel)] 12.5 mg PO BID #60 tab 09/05/20 Isosorbide Mononitrate [Imdur] 30 mg PO DAILY@1200 #30 tab 09/05/20 The following prescriptions were given: Carvedilol [Coreg (Beta Angel)] 12.5 mg PO BID #60 tab Transmission Status: Pending to [id number] Isosorbide Mononitrate [Imdur] 30 mg PO DAILY@1200 #30 tab Transmission Status: Pending to [facility] Primary Care Physician: Milton Kang MD [Primary Care Provider] - Please follow up with your Primary Care Physician in: 1 Week Test Results: Test results from this visit will be discussed in further detail at your follow-up appointment, if applicable. Please Follow Up With: Brooke Lutz, PA When: 1 Week Proposed Discharge Date: 09/05/20
--- NOTE | 2020-09-05 11:11 | PCM.DC.SUM ---
<Yenny Santoyo MANAGER [employer] - Last Filed: 09/05/20 11:22> Discharge Date and Diagnosis - Problem List Patient Problems: Active and Suspected Problems (Last Reviewed 04/08/20 @ 14:[address] Ted Herring DO) Hypertensive urgency (Acute) Chest pain (Acute) Date of Admission: 09/02/20 Date of Discharge: 09/05/20 - Primary Discharge Diagnosis Acute Problems: Active Problems (Last Reviewed 04/08/20 @ 14:[address] Ted Herring DO) 1. Hypertensive urgency with refractory hypotension 2. CAD with history of stents 3. History of SVT 4. Hyperlipidemia 5. GERD - Secondary Discharge Diagnosis Chronic Problems: Chronic Problems (Last Reviewed 04/08/20 @ 14:[address] 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 Electronically Signed: Margarito Shabazz MD at 16:53 EST Tel , Service support , Dr. Egan- Cardiology Operations: None Procedures: Stress test Summary of Care Provided: The patient is a 79 year old F admitted 09/02/2020 due to hypertension and headaches. 1. Hypertensive urgency with refractory hypotension-patient states her blood pressure has been labile at home over the past 2 weeks with significant elevation followed by low blood pressure. Blood pressure stable on current regimen which includes carvedilol 12.5 mg twice daily, lisinopril 5 mg daily and Imdur 30 mg daily. Her Dyazide was discontinued. Patient underwent stress test which was negative for ischemia, gated ejection fraction 79%. Instructed patient to check blood pressure twice daily at home and document findings, follow-up with cardiology in 1 week. Instructed to notify PCP and/or cardiology if systolic blood pressure greater than 180. 2. CAD with history of stents-continue aspirin, statin, carvedilol, lisinopril. Stressed negative as noted above. 3. History of SVT- stable. 4. Hyperlipidemia- continue statin. 5. GERD- on PPI. Patient seen and examined prior to discharge. Physical assessment as noted below. Patient is stable for discharge with follow up recommendations as noted above. This patient was seen by NOAH Montes under the supervision of Dr. Fallon. Patient Problems: Active and Suspected Problems (Last Reviewed 04/08/20 @ 14:[address] Ted Herring DO) Hypertensive urgency (Acute) Chest pain (Acute) - Physical Exam Vitals/I&O's: Vital Signs Temp Pulse Resp BP Pulse Ox 98.2 F 73 18 162/87 H 98 09/05/20 10:45 09/05/20 10:45 09/05/20 10:45 09/05/20 10:45 09/05/20 10:45 Oxygen Delivery Method Room Air Weight: 130 lb 8.007 oz Body Mass Index (BMI) 22.4 Orthostatic Vital Signs Start: 09/03/20 15:05 Freq: q24h Status: Active Protocol: Activity Type Activity Date Activity User E-Sign Co-Sign Detail Recorded Client Recorded Date Recorded By Document 09/05/20 05:38 [id number] 09/05/20 05:48 09/05/20 05:38 Orthostatic Vitals Standing -Blood Pressure (90/60-120/80) 151/81 H -Extremity Use Right Arm -Pulse Rate (60-100) 87 Sitting -Blood Pressure (90/60-120/80) 145/78 H -Extremity Use Right Arm -Pulse Rate (60-100) 75 Lying -Blood Pressure (90/60-120/80) 177/78 H -Extremity Use Right Arm -Pulse Rate (60-100) 76 Intake and Output for Last 24 Hours 09/03/20 09/04/20 09/05/20 23:59 23:59 23:59 Intake Total 1570 / 1570 1650 / 1650 Balance 1570 / 1570 1650 / 1650 General: Alert, Oriented x3, Cooperative HEENT: Atraumatic, PERRLA, EOMI, Normocephalic Neck: Supple, No JVD, Negative Carotid Bruits Lungs: Clear to auscultation, Normal air movement Cardiovascular: Regular rate, No murmurs Abdomen: Bowel Sounds Present, Soft, Non Tender, Non-Distended Extremities: No clubbing, No cyanosis, No edema Skin: No rashes, No breakdown Musculoskeletal: No Tenderness to Palpation of Joints or Extremities Neurological: Cranial nerves II-XII grossly intact, Neuro grossly intact Psych/Mental Status: Normal Affect, Appropriate Laboratory Results 09/05/20 05:30: Sodium 138, Potassium 4.3, Chloride 105, Carbon Dioxide 27.0, Anion Gap 6, BUN 23 H, Creatinine 0.89, Estim Creat Clear Calc 46.12, Est GFR (MDRD) Af Amer 78, Est GFR (MDRD) Non-Af 65, BUN/Creatinine Ratio 25.8 H, Glucose 97, Calcium 8.9 Current Medications Acetaminophen (Acetaminophen 325 Mg Tablet) 650 mg PO Q6H PRN PRN PRN Reason: Pain Score 1-10/Temp > 100.7 F Last Admin: 09/04/20 20:32 Dose: 650 mg Documented by: Aspirin (Aspirin 81 Mg Tab.Chew) 81 mg PO DAILY@0800 [facility] Last Admin: 09/05/20 10:38 Dose: 81 mg Documented by: Atorvastatin Calcium (Atorvastatin Calcium 20 Mg Tablet) 20 mg PO QHS [facility] Last Admin: 09/04/20 21:45 Dose: 20 mg Documented by: Carvedilol (Carvedilol 12.5 Mg Tablet) 12.5 mg PO BID [facility] Last Admin: 09/05/20 10:38 Dose: 12.5 mg Documented by: Clopidogrel Bisulfate (Clopidogrel Bisulfate 75 Mg Tablet) 75 mg PO DAILY [facility] Last Admin: 09/05/20 10:39 Dose: 75 mg Documented by: Enoxaparin Sodium (Enoxaparin 40 Mg/0.4 Ml Syringe) 40 mg SC DAILY [facility] Last Admin: 09/05/20 10:37 Dose: 40 mg Documented by: Sodium Chloride () 250 mls @ 15 mls/hr IV .[id number] PRN PRN Reason: Saline Flush Sodium Chloride () 250 mls @ 15 mls/hr IV .[id number] PRN PRN Reason: Additional IVPB Infusion Isosorbide Mononitrate (Isosorbide Mononitrate 30 Mg Tablet) 30 mg PO DAILY@1200 [facility] Last Admin: 09/04/20 12:56 Dose: 30 mg Documented by: Lisinopril (Lisinopril 5 Mg Tablet) 5 mg PO DAILY [facility] Last Admin: 09/05/20 05:49 Dose: 5 mg Documented by: Melatonin (Melatonin 3 Mg Tablet) 3 mg PO QHS PRN PRN PRN Reason: INSOMNIA Nutritional Formula (Lactose Free) (Ensure Enlive 120 Ml Liquid) 120 ml PO TIDCM [facility] Last Admin: 09/05/20 10:38 Dose: 120 ml Documented by: Ondansetron HCl (Ondansetron 4 Mg/2 Ml Vial) 4 mg IV Q8H PRN PRN PRN Reason: NAUSEA/VOMITING Last Admin: 09/05/20 10:51 Dose: 4 mg Documented by: Oxycodone HCl (Oxycodone 5 Mg Tablet) 10 mg PO Q8H PRN PRN PRN Reason: Pain Score 4-10 Last Admin: 09/04/20 20:31 Dose: 10 mg Documented by: Pantoprazole Sodium (Pantoprazole Sodium 40 Mg Tablet) 40 mg PO DAILY [facility] Last Admin: 09/05/20 10:39 Dose: 40 mg Documented by: Pramipexole Dihydrochloride (Pramipexole Di-Hcl 0.5 Mg Tablet) 0.5 mg PO BIDCM [facility] Last Admin: 09/05/20 10:38 Dose: 0.5 mg Documented by: Sodium Chloride (0.9% Saline Lock 10 Ml Syringe) 10 - 40 ml IV UD PRN PRN Reason: SALINE FLUSH Last Admin: 09/03/20 20:59 Dose: 20 ml Documented by: Discharge Diet: Low fat/ Low Cholesterol Discharge Activity: Return to Normal Activity Call your doctor if you observe: Shortness of breath, Dizziness, Fainting spells, Chest pain Home Medications: Medications to take at Discharge Pantoprazole Sodium [Protonix] 40 mg PO DAILY 06/20/17 Aspirin [Aspirin, Baby] 81 mg PO DAILY@0800 05/05/18 acetaminophen 500 mg tablet 1,000 mg PO Q8H 01/27/20 fluticasone propionate 50 mcg/actuation nasal spray,suspension 2 spray INTRANASAL DAILY 01/27/20 nitroglycerin 0.4 mg sublingual tablet 0.4 mg SUBLINGUAL Q5-15M PRN 01/27/20 oxycodone 10 mg tablet 10 mg PO Q8H PRN 01/27/20 Pramipexole Di-HCl [Pramipexole Dihydrochloride] 0.5 mg PO BID 04/08/20 clopidogrel 75 mg tablet 75 mg PO DAILY #30 tab 04/12/20 atorvastatin 20 mg tablet 20 mg PO QHS #90 tab 05/18/20 Cetirizine HCl [Zyrtec] 10 mg PO DAILY 09/02/20 Lisinopril 5 mg PO DAILY 09/02/20 Carvedilol [Coreg (Beta Angel)] 12.5 mg PO BID #60 tab 09/05/20 Isosorbide Mononitrate [Imdur] 30 mg PO DAILY@1200 #30 tab 09/05/20 Ondansetron HCl [Zofran] 4 mg PO Q8H PRN #20 tab 09/05/20 Following Prescriptions Were Given to Patient: Carvedilol [Coreg (Beta Angel)] 12.5 mg PO BID #60 tab Transmission Status: Received by [id number] Isosorbide Mononitrate [Imdur] 30 mg PO DAILY@1200 #30 tab Transmission Status: Received by [facility] Ondansetron HCl [Zofran] 4 mg PO Q8H PRN #20 tab PRN Reason: Nausea Transmission Status: Received by [id number] Primary Care Physician: Milton Kang MD [Primary Care Provider] - Please follow up with your Primary Care Physician in: 1 Week Please Follow Up With: Brooke Lutz PA When: 1 Week Disposition: Home Minutes spent on discharge:: 35 Patient Condition:: Stable Medical Necessity - Tobacco Use Smoking Status: Never smoker Meaningful Use Info Meaningful Use Diagnoses (Choose all that apply): None applicable <Esther Fallon - Last Filed: 09/05/20 15:03> Discharge Date and Diagnosis - Primary Discharge Diagnosis Acute Problems: Active Problems (Last Reviewed 04/08/20 @ 14:[address] Ted Herring DO) Hypertensive urgency (Acute) Chest pain (Acute) - Secondary Discharge Diagnosis Chronic Problems: Chronic Problems (Last Reviewed 04/08/20 @ 14:[address] 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 I have independently interviewed and examined the patient and reviewed pertinent historical, laboratory, and other data. Please refer to her note for patient's presentation, findings, and recommendations. 79-year-old female who was admitted with elevated blood pressure and headaches. She has had elevated blood pressures ongoing for 2 weeks. She came in with persistent headache and intermittent chest pain. Her systolic blood pressure was 226 on admission. EKG showed no acute abnormality. Blood pressure was improved in the hospital on a regimen. Patient underwent stress test that was negative for acute abnormality. On the day of discharge, patient was seen and examined. There were no acute events overnight. Denied any new complaint. She denied any headaches or dizziness or palpitations. Blood pressure was fluctuating. Physical Exam: Gen: Comfortable, not pale, not jaundiced, alert oriented x3 CVS:HS I +II, regular, no murmurs RESP: Diminished at lung bases GI: BS present and normal, nontender, no palpable organs EXT:No edema - Physical Exam Vitals/I&O's: Vital Signs Temp Pulse Resp BP Pulse Ox 98.2 F 73 18 162/87 H 98 09/05/20 10:45 09/05/20 10:45 09/05/20 10:45 09/05/20 10:45 09/05/20 10:45 Oxygen Delivery Method Room Air Weight: 59.194 kg Body Mass Index (BMI) 22.4 Intake and Output for Last 24 Hours 09/03/20 09/04/20 09/05/20 23:59 23:59 23:59 Intake Total 1570 / 1570 1650 / 1650 Balance 1570 / 1570 1650 / 1650 Laboratory Results 09/05/20 05:30: Sodium 138, Potassium 4.3, Chloride 105, Carbon Dioxide 27.0, Anion Gap 6, BUN 23 H, Creatinine 0.89, Estim Creat Clear Calc 46.12, Est GFR (MDRD) Af Amer 78, Est GFR (MDRD) Non-Af 65, BUN/Creatinine Ratio 25.8 H, Glucose 97, Calcium 8.9 Inpatient E&M: [id number] Disch Hosp
--- NOTE | 2020-09-05 11:14 | PHA.DC.MR ---
Pharmacy Service has performed discharge medication reconciliation for this patient. The patient's discharge medication list was reviewed for discrepancies and discrepancies were resolved. Home Medications Pantoprazole Sodium [Protonix] 40 mg PO DAILY 06/20/17 Aspirin [Aspirin, Baby] 81 mg PO DAILY@0800 05/05/18 acetaminophen 500 mg tablet 1,000 mg PO Q8H 01/27/20 fluticasone propionate 50 mcg/actuation nasal spray,suspension 2 spray INTRANASAL DAILY 01/27/20 nitroglycerin 0.4 mg sublingual tablet 0.4 mg SUBLINGUAL Q5-15M PRN 01/27/20 oxycodone 10 mg tablet 10 mg PO Q8H PRN 01/27/20 Pramipexole Di-HCl [Pramipexole Dihydrochloride] 0.5 mg PO BID 04/08/20 clopidogrel 75 mg tablet 75 mg PO DAILY #30 tab 04/12/20 atorvastatin 20 mg tablet 20 mg PO QHS #90 tab 05/18/20 Cetirizine HCl [Zyrtec] 10 mg PO DAILY 09/02/20 Lisinopril 5 mg PO DAILY 09/02/20 Carvedilol [Coreg (Beta Angel)] 12.5 mg PO BID #60 tab 09/05/20 Isosorbide Mononitrate [Imdur] 30 mg PO DAILY@1200 #30 tab 09/05/20
== END 2020-09-05 12:43 | disposition home or self-care (01) | DRG 305 ==
LOC: ED 17:46 → PCU 09-03 07:20
PROVIDERS: Internal Medicine; Admitting Provider Family Medicine; Emergency Provider Emergency Medicine; PCP Family Medicine; Visit Provider Internal Medicine
DX: I16.0 Hypertensive urgency (principal); I47.1 Supraventricular tachycardia; R07.89 Other chest pain; I10 Essential (primary) hypertension; T46.5X5A Adverse effect of other antihypertensive drugs, initial encounter; I95.2 Hypotension due to drugs; I25.10 Atherosclerotic heart disease of native coronary artery without angina pectoris; G25.81 Restless legs syndrome; E78.5 Hyperlipidemia, unspecified; K21.9 Gastro-esophageal reflux disease without esophagitis; I25.2 Old myocardial infarction; Z86.73 Personal history of transient ischemic attack (TIA), and cerebral infarction without residual deficits; Z95.5 Presence of coronary angioplasty implant and graft; Z79.899 Other long term (current) drug therapy; Z79.82 Long term (current) use of aspirin; Z79.51 Long term (current) use of inhaled steroids
CPT/HCPCS: 36415; 71045; 78452; 80048; 80076; 83735; 84100; 84484; 85025; 93005; 93017; 96372; 96374; 96375; 96376; 97802; 99218; 99285; A9500; A4216; G0378; J2405; J2785

== ENCOUNTER 2021-06-04 17:32 | Observation (INO) | payer MEDICARE, SELFPAY ==
[2019-04-14 11:09] VITALS: BMI 25.7
[2021-06-04] VITALS (14 sets, daily range): BP systolic 183–250; BP diastolic 95–141; PULSE 91–107; RESP 14–24; TEMP 36.8–37.6; O2SAT 95–99; BMI 25.6
--- NOTE | 2021-06-04 17:56 | RAD_ITS ---
STUDY: X-RAY CHEST REASON FOR EXAM: Female, 80 years old. hypertension TECHNIQUE: Frontal portable view of the chest COMPARISON: 02 September 2020 FINDINGS: The lungs are clear and expanded. There is no demonstrated pleural abnormality. Normal size heart. Normal mediastinum and alba. Normal visualized pulmonary arteries. Normal visualized aortic arch and descending thoracic aorta. Normal visualized thoracic spine. Normal visualized ribs, clavicles, and shoulders. There is no demonstrated abnormality of the visualized soft tissue structures of the upper abdomen. RAD/Chest 1 View (Portable) IMPRESSION: Normal x-ray examination of the chest. Electronically Signed: Nina Ramirez MD at 19:21 EDT Tel , Service support ,
--- NOTE | 2021-06-04 17:56 | EKG12_ITS ---
Test Reason : HTN Blood Pressure : / mmHG Vent. Rate : 094 BPM Atrial Rate : 094 BPM P-R Int : 150 ms QRS Dur : 064 ms QT Int : 350 ms P-R-T Axes : 071 -37 046 degrees QTc Int : 437 ms Normal sinus rhythm Left axis deviation Inferior infarct , age undetermined, cannot be excluded Abnormal ECG Confirmed by MAYKEL LION, JOCELYNE ([id number]), editorial clerk RUPALI NARANJO ([id number]) on 06/06/2021 9:43:00 AM Referred By: ALEC Confirmed By:JOCELYNE BRAR MD
--- NOTE | 2021-06-04 17:59 | CT_ITS ---
STUDY: CT BRAIN WITHOUT CONTRAST REASON FOR EXAM: Female, 80 years old. Headache RADIATION DOSAGE (If Supplied By Facility): CTDIvol = ( 44.99 ) mGy, DLP = ( 829.85 ) mGycm TECHNIQUE: Transaxial CT imaging of the brain was performed without administration of intravenous contrast material. Individualized dose optimization techniques were used for this CT. COMPARISON: 08 April 2020 FINDINGS: Brain parenchyma is without focal lesions, mass effect, acute intracranial hemorrhage, extra parenchymal fluid collections, hydrocephalus or herniation. There is mild chronic white matter ischemic disease. The skull is intact. CT/Brain/Head without Contrast IMPRESSION: 1. No acute abnormality. 2. Stable since prior mild chronic white matter ischemic change. Electronically Signed: Nina Ramirez MD at 19:15 EDT Tel , Service support ,
--- NOTE | 2021-06-04 18:01 | EDS_ITS ---
HPI History of Present Illness Chief Complaint: Hypertension Narrative Narrative: 80-year-old female presenting with hypertension issues. She is currently on lisinopril 5 mg p.o. twice daily, carvedilol 12.5 mg p.o. twice daily, amlodipine 5 mg daily. She states her blood pressures have been elevated for about a week. She states that she called Dr. Casarez's office and she was told she cannot get an appointment until August with Dr. Casarez. No medications were changed. Patient states that she has been experiencing elevated blood pressures and then lower blood pressures so it was decided to keep with the same. She is taking her nitroglycerin to help drop her blood pressure but she is not complaining of chest pain. She not had fever, chills, cough. She does describe a headache which has been on and off for about the same out of time. She denies visual disturbance. She is nauseous without vomiting. 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) Premature ventricular contractions Restless leg syndrome SVT (supraventricular tachycardia) Home Medications pantoprazole 40 mg PO DAILY 06/20/17 [History Last Taken 09/02/20] aspirin 81 mg PO DAILY@0800 05/05/18 [History Last Taken 09/02/20] acetaminophen 500 mg tablet 1,000 mg PO Q8H 01/27/20 [History Last Taken 09/02/20] fluticasone propionate 50 mcg/actuation nasal spray,suspension 2 spray INTRANASAL DAILY 01/27/20 [History Last Taken 09/02/20] oxycodone 10 mg tablet 10 mg PO Q8H PRN 01/27/20 [History Last Taken 09/02/20] pramipexole 0.5 mg PO BID 04/08/20 [History Last Taken 09/02/20] ondansetron HCl 4 mg PO Q8H PRN #20 tab 09/05/20 [Rx Last Taken Unknown] nitroglycerin 0.4 mg sublingual tablet 0.4 mg SUBLINGUAL Q5-15M PRN #25 tab 09/13/20 [Rx Last Taken Unknown] amlodipine 5 mg tablet 5 mg PO DAILY #30 tablet 11/14/20 [Rx Last Taken Unknown] carvedilol 12.5 mg tablet 12.5 mg PO BID #60 tab 11/15/20 [Rx Last Taken Unknown] lisinopril 5 mg tablet 5 mg PO BID tablet 11/30/20 [History Last Taken Unknown] clopidogrel 75 mg tablet 75 mg PO DAILY #30 tab 05/22/21 [Rx Last Taken Unknown] Allergy/AdvReac Type Severity Reaction Status Date / Time diazepam [From Valium] Allergy SEIZURES Verified 06/04/21 17:37 gabapentin Allergy HYPER Verified 06/04/21 17:37 promethazine Allergy PT UNSURE Verified 06/04/21 17:37 OF REACTION zolpidem Allergy INSOMNIA Verified 06/04/21 17:37 Family History Father CAD (coronary artery disease) Hypertension CVA (cerebral vascular accident) CHF (congestive heart failure) Mother CAD (coronary artery disease) Hypertension Lung cancer Surgical History History of coronary artery stent placement (04/14/19) History of left heart catheterization (12/23/19) History of lumbar fusion History of open reduction and internal fixation (ORIF) procedure History of tubal ligation Varicose vein of leg Social History Smoking Status: Never smoker alcohol intake: never substance use type: does not use caffeine: Yes Type: coffee Number of servings: 2 what type of physical activity do you participate in: none seatbelt use: always do you feel safe at home: Yes ROS ROS ED Constitutional Constitutional ED: Denies chills, fever(s) or sweats Eyes Eyes: Denies blurry vision or change in vision ENT ENT ED: Denies ear pain or sore throat Cardiovascular Cardiovascular: Denies chest pain, palpitations or racing heartbeat Respiratory/Chest Respiratory/Chest: Denies cough, dyspnea or sputum Gastrointestinal Gastrointestinal: Denies abdominal pain, constipation, diarrhea, nausea or vomiting Genitourinary Genitourinary ED: Denies dysuria, hematuria or urinary frequency Musculoskeletal Musculoskeletal: Denies arthralgias, myalgias or neck pain Integumentary Denies abscess, Abrasions or rash Neurologic Neurologic: Reports headache(s); Denies paresthesias or weakness Psychiatric Psychiatric: Denies anxiety, depression, suicidal ideation or suicidal thoughts Endocrine Endocrinology: Denies polydipsia or polyuria EXAM Physical Exam Const Vital Signs: 06/04/21 17:33 06/04/21 17:38 06/04/21 17:53 Temperature 99.7 F H Temperature Source Temporal Pulse Rate 101 H Respiratory Rate 16 Respiratory Effort Normal Short of Breath Respiratory Pattern Normal Blood Pressure 250/111 H 183/136 H Blood Pressure Mean 157 151 Pulse Ox 99 Oxygen Delivery Method Room Air 06/04/21 18:10 06/04/21 18:12 06/04/21 18:20 Temperature Temperature Source Pulse Rate 91 Respiratory Rate 24 H Respiratory Effort Respiratory Pattern Blood Pressure 218/100 H 213/141 H Blood Pressure Mean 139 165 Pulse Ox 96 Oxygen Delivery Method Room Air Room Air 06/04/21 19:00 06/04/21 19:39 06/04/21 20:03 Temperature Temperature Source Pulse Rate 101 H 98 104 H Respiratory Rate 22 H 18 Respiratory Effort Respiratory Pattern Blood Pressure 233/120 H 232/106 H 241/117 H Blood Pressure Mean 157 148 158 Pulse Ox 95 96 Oxygen Delivery Method Room Air Room Air 06/04/21 20:10 06/04/21 21:48 06/04/21 22:20 Temperature Temperature Source Pulse Rate 94 99 100 Respiratory Rate 18 Respiratory Effort Respiratory Pattern Blood Pressure 207/101 H 183/110 H 202/95 H Blood Pressure Mean 136 134 130 Pulse Ox 95 Oxygen Delivery Method Room Air 06/04/21 22:29 Temperature Temperature Source Pulse Rate 100 Respiratory Rate 14 Respiratory Effort Respiratory Pattern Blood Pressure 187/122 H Blood Pressure Mean 143 Pulse Ox 96 Oxygen Delivery Method Room Air Positive well nourished General Appearance ED: Negative for pallor HEENT Reports normocephalic, head/scalp atraumatic and moist mucous membranes Eyes PERRL and EOMs intact bilaterally Neck no lymphadenopathy and supple Chest Wall inspection of chest normal and palpation of chest normal Resp normal respiratory effort and clear to auscultation bilaterally Auscultation: Negative for rales, rhonchi or wheezes Cardio regular rate and regular rhythm GI normal to inspection, nondistended, normoactive bowel sounds and non-distended Auscultation: normoactive bowel sounds Palpation: soft Narrative: Deferred Extremity normal to inspection General Extremety ED: Yes edema and tenderness General Extremity: edema Neuro oriented x3 and CN's II-XII intact bilaterally Sensorium / Orientation: alert Motor Exam: strength 5/5 throughout Psych mental status grossly normal Attitude: No agitated Skin no rashes or lesions noted and no wounds General Skin Exam: Negative for jaundice or pallor MDM MDM MDM Narrative Medical decision making narrative: Patient presenting with headache and hypertension. This appears to be an acute on chronic issue. She states that her blood pressures actually go high and low. She has contacted Dr. Casarez's office and has not had a medication change. On examination she has no focal neurologic deficits or lateralizing signs or symptoms. She is clearly mentating. She is complaining of headache without visual complaint or other red flag signs or symptoms. Patient initially stated that she does not have chest pain although after listening to her history she states she does periodically have chest pain and that is why she sees Dr. Casarez. She is on nitroglycerin at home and she states has been taking this for the blood pressure and not specifically for chest pain. She does request pain medication here and was given fentanyl because she states she has an allergy to morphine however there is a documented record of her tolerating fentanyl. EKG performed on arrival showed a sinus rhythm with a ventricular rate of 94 bpm without sign of ischemic change. Patient's first troponin is 6 and the second 1 is 10. Chest x-ray my interpretation shows no acute cardiopulmonary process and the radiologist agree. CBC and BMP are unremarkable. Patient was given 2 doses of labetalol 20 mg and her heart rate and blood pressure have improved. Given her continued pain and elevated blood pressure I did obtain a CTA of the chest abdomen and pelvis. Patient has had difficulty with her restless leg symptoms just been here because she did not take her medication this evening. This somewhat limited evaluation of her blood pressure because she has such violent restless leg syndrome. She was given her pramipexole and eventually her restless legs did calm down however blood pressure still elevated after 2 doses of labetalol 20 mg and hydralazine 10 mg. At this point since her blood pressure is still elevated at 220/100 I feel it is reasonable to admit her for control of her blood pressure. Impression: 1. Hypertension 2. Headache 3. Chest pain 4. Restless leg syndrome Lab Data Labs: Laboratory Results - last 24 hr 06/04/21 06/04/21 06/04/21 17:52 17:52 19:53 WBC 7.6 RBC 4.60 Hgb 13.6 Hct 41.6 MCV 90.4 MCH 29.6 MCHC 32.7 RDW Std Deviation 40.3 RDW Coeff of Aly 12.2 Plt Count 424 MPV 9.2 Immature Gran % (Auto) 0.300 Neut % (Auto) 55.9 Lymph % (Auto) 36.6 [place] % (Auto) 5.0 Eos % (Auto) 1.7 Baso % (Auto) 0.5 Absolute Neuts (auto) 4.3 Absolute Lymphs (auto) 2.79 Nucleated RBC % 0 Sodium 137 Potassium 3.8 Chloride 104 Carbon Dioxide 27.0 Anion Gap 6 BUN 15 Creatinine 0.75 Estim Creat Clear Calc 35.49 Est GFR (MDRD) Af Amer 96 Est GFR (MDRD) Non-Af 79 BUN/Creatinine Ratio 20.0 Glucose 113 H Calcium 9.7 Troponin I High Sens 6 10 Radiography Diagnostic Testing: Clinical Impression(s) from Imaging Studies Chest X-Ray 06/04/21 17:56 IMPRESSION: Normal x-ray examination of the chest. Electronically Signed: Nina Ramirez MD at 19:21 EDT Tel , Service support , Brain CT 06/04/21 17:59 IMPRESSION: 1. No acute abnormality. 2. Stable since prior mild chronic white matter ischemic change. Electronically Signed: Nina Ramirez MD at 19:15 EDT Tel , Service support , Chest/Abdomen/Pelvis CTA 06/04/21 19:58 IMPRESSION: Mild bilateral hydroureteronephrosis with distended bladder. Consider bladder outlet obstruction. Postsurgical changes of the lumbar spine with multilevel spondylolisthesis. Electronically Signed: Bryson Samuels MD at 21:50 EDT Tel , Service support , Discharge Plan Triage Chief Complaint: Hypertension ED Provider: Navneet Larsen Dx/Rx/DC Orders Prescriptions: No Action oxycodone 10 mg tablet 10 mg PO Q8H PRN (Reason: pain) RF: 0 acetaminophen [Tylenol Extra Strength] 500 mg tablet 1,000 mg PO Q8H RF: 0 fluticasone propionate [Flonase Allergy Relief] 50 mcg/actuation spray,suspen maurisio 2 spray INTRANASAL DAILY RF: 0 nitroglycerin 0.4 mg tablet, sublingual 0.4 mg SUBLINGUAL Q5-15M PRN (Reason: chest pain) Qty: 25 RF: 3 amlodipine [Norvasc] 5 mg tablet 5 mg PO DAILY Qty: 30 RF: 6 lisinopril 5 mg tablet 5 mg PO BID RF: 0 pantoprazole 40 MG tablet 40 mg PO DAILY RF: 0 aspirin 81 MG tablet,chewable 81 mg PO DAILY@0800 RF: 0 pramipexole 0.5 MG tablet 0.5 mg PO BID RF: 0 ondansetron HCl 4 MG tablet 4 mg PO Q8H PRN (Reason: Nausea) Qty: 20 RF: 0 carvedilol 12.5 mg tablet 12.5 mg PO BID Qty: 60 RF: 11 clopidogrel 75 mg tablet 75 mg PO DAILY Qty: 30 RF: 11 Primary Care Provider: Milton Kang Referrals: Milton Kang MD [Primary Care Provider] -
[2021-06-04] MEDS: Metoclopramide 10 MG/2 ML Vial IV (18:02)
[2021-06-04] MEDS: DiphenhydrAMINE 50 MG/ML Syringe 25 MG IV (18:02)
[2021-06-04] MEDS: Aspirin 81 MG TAB.CHEW 324 MG PO (18:02)
[2021-06-04] MEDS: Labetalol 100 MG/20 ML Vial 20 MG IV ×2 (18:08→20:02)
[2021-06-04 18:15] LABS: Absolute Lymphocyte Count 2.79 X10^3/uL (0.83-4.51); Absolute Neutrophil Count 4.3 X10^3/uL (2.0-7.7); Basophil# 0.04 X10^3/uL; Basophil% 0.5 % (0-1); Eosinophil# 0.13 X10^3/uL; Eosinophils% 1.7 % (0-5); Hematocrit 41.6 % (37-47); Hemoglobin 13.6 g/dL (12.0-15.0); Lymphocyte # 2.79 X10^3/ul (0.83-4.51); Lymphocyte % 36.6 % (19-41); Mean Corp Hgb Conc 32.7 g/dL (32-36); Mean Corpuscular Hgb 29.6 pg (27.0-32.0); Mean Corpuscular Volume 90.4 fL (81-99); Mean Platelet Vol. 9.2 fl (6.2-12.0); Monocyte# 0.38 X10^3/uL; NRBC Flagged by Analyzer 0 % (0-5); Neutrophil # 4.26 X10^3/uL (2.7-7.7); Neutrophil % 55.9 % (47-70); Platelet Count 424 K/mm3 (150-450); RBC Distribution Width CV 12.2 % (11.6-14.6); RBC Distribution Width SD 40.3 fl (35.1-43.9); White Blood Count 7.6 K/mm3 (4.4-11.0)
[2021-06-04 18:29] LABS: Anion Gap 6 (5-15); BUN 15 mg/dL (7-18); Calcium,Total 9.7 mg/dL (8.5-10.1); Chloride 104 mmol/L (98-107); Creatinine, Serum 0.75 mg/dL (0.55-1.02); EST Glomerular Filtration Rate 79 mL/min (>60); Est Glom Filt Rate - Afr Amer 96 mL/min (>60); Estimated Creatinine Clearance 35.49 ml/min; Glucose 113 mg/dL (74-106); Potassium 3.8 mmol/L (3.5-5.1); Sodium Level 137 mmol/L (136-145); Troponin-I HS 6 pg/mL (3.0-54.0)
--- NOTE | 2021-06-04 19:14 | EKG12_ITS ---
Test Reason : CP Blood Pressure : / mmHG Vent. Rate : 103 BPM Atrial Rate : 103 BPM P-R Int : 154 ms QRS Dur : 074 ms QT Int : 354 ms P-R-T Axes : 057 -31 030 degrees QTc Int : 463 ms Sinus tachycardia Left axis deviation Nonspecific ST abnormality Abnormal ECG Confirmed by MAYKEL LION, JOCELYNE ([id number]), newspaper editor managing RUPALI NARANJO ([id number]) on 06/06/2021 9:45:19 AM Referred By: BIRD Confirmed By:JOCELYNE BRAR MD
[2021-06-04] MEDS: Pramipexole Di-HCl 0.5 MG Tablet PO (19:34)
[2021-06-04] MEDS: fentaNYL 100 MCG/2 ML Ampul 25 MCG IV (19:34)
--- NOTE | 2021-06-04 19:58 | CT_ITS ---
INDICATION: chest pain EXAMINATION: CTA Chest and CTA Abdomen and Pelvis W/ Contrast Injection (and W/O Contrast Images if performed) TECHNIQUE: Images were obtained of the chest, abdomen and pelvis following IV contrast. A radiation dose optimization technique was used for this scan. IV Contrast dosage and agent: IV 100mL [id number]-[id number] COMPARISON: None. FINDINGS: Lungs: Scattered subsegmental atelectasis. Mediastinum: The cardiomediastinal silhouette is not enlarged. No mediastinal, hilar or axillary adenopathy. Mild aortic arch and coronary artery calcifications. No obvious filling defect seen within the visualized pulmonary arteries. Pleura: Unremarkable Liver: Unremarkable Gallbladder: Unremarkable Spleen: Unremarkable Pancreas: Unremarkable Adrenal Glands: Unremarkable Kidneys: Mild bilateral hydroureteronephrosis. No obstructing stone is seen. Vasculature: Moderate aortoiliac atherosclerotic disease. GI Tract: Unremarkable Lymphadenopathy: None Peritoneum: No ascites. Bladder: Bladder is distended. Reproductive organs: Status post hysterectomy. Bones/Soft tissues: There are diffuse degenerative changes of the spine. Postsurgical changes of the lumbar spine with multilevel spondylolisthesis. CT/CTA Chst, Abd, Pel W and/or WO IMPRESSION: Mild bilateral hydroureteronephrosis with distended bladder. Consider bladder outlet obstruction. Postsurgical changes of the lumbar spine with multilevel spondylolisthesis. Electronically Signed: Bryson Samuels MD at 21:50 EDT Tel , Service support ,
[2021-06-04 20:20] LABS: Troponin-I HS 10 pg/mL (3.0-54.0)
[2021-06-04] MEDS: hydrALAZINE 20 MG/ML Vial 10 MG IV (22:13)
--- NOTE | 2021-06-04 22:55 | HP.PCM.HOS_ITS ---
HPI - General General Date of Admission: 06/04/21 HPI Narrative TREE HAMMONDS, is a 80 F with a significant history of hypertension; CVA; CAD status post stents who presents to the emergency department with elevated blood pressure with systolic of 244. Her symptoms started on the same day of presentation. Associated her her symptoms is headache. While at the emergency department she developed frequent urinations. She report that her urine feels hot. She thought that her urinary symptoms may be secondary to drugs given to her at the emergency department. Also patient complained of transient chest pain that had resolved at the time of hospitalist examination. 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) Premature ventricular contractions Restless leg syndrome SVT (supraventricular tachycardia) Home Medications pantoprazole 40 mg PO DAILY 06/20/17 [History Last Taken 09/02/20] aspirin 81 mg PO DAILY@0800 05/05/18 [History Last Taken 09/02/20] acetaminophen 500 mg tablet 1,000 mg PO Q8H 01/27/20 [History Last Taken 09/02/20] fluticasone propionate 50 mcg/actuation nasal spray,suspension 2 spray INTRANASAL DAILY 01/27/20 [History Last Taken 09/02/20] oxycodone 10 mg tablet 10 mg PO Q8H PRN 01/27/20 [History Last Taken 09/02/20] pramipexole 0.5 mg PO BID 04/08/20 [History Last Taken 09/02/20] ondansetron HCl 4 mg PO Q8H PRN #20 tab 09/05/20 [Rx Last Taken Unknown] nitroglycerin 0.4 mg sublingual tablet 0.4 mg SUBLINGUAL Q5-15M PRN #25 tab 09/13/20 [Rx Last Taken Unknown] amlodipine 5 mg tablet 5 mg PO DAILY #30 tablet 11/14/20 [Rx Last Taken Unknown] carvedilol 12.5 mg tablet 12.5 mg PO BID #60 tab 11/15/20 [Rx Last Taken Unknown] lisinopril 5 mg tablet 5 mg PO BID tablet 11/30/20 [History Last Taken Unknown] clopidogrel 75 mg tablet 75 mg PO DAILY #30 tab 05/22/21 [Rx Last Taken Unknown] Allergy/AdvReac Type Severity Reaction Status Date / Time diazepam [From Valium] Allergy SEIZURES Verified 06/04/21 17:37 gabapentin Allergy HYPER Verified 06/04/21 17:37 promethazine Allergy PT UNSURE Verified 06/04/21 17:37 OF REACTION zolpidem Allergy INSOMNIA Verified 06/04/21 17:37 Family History Father CAD (coronary artery disease) Hypertension CVA (cerebral vascular accident) CHF (congestive heart failure) Mother CAD (coronary artery disease) Hypertension Lung cancer Surgical History History of coronary artery stent placement (04/14/19) History of left heart catheterization (12/23/19) History of lumbar fusion History of open reduction and internal fixation (ORIF) procedure History of tubal ligation Varicose vein of leg Social History Smoking Status: Never smoker alcohol intake: never substance use type: does not use caffeine: Yes Type: coffee Number of servings: 2 what type of physical activity do you participate in: none seatbelt use: always do you feel safe at home: Yes ROS ROS Narrative Constitutional: Denies fever, chills, fatigue, anorexia and change in weight Eyes: Denies blurry vision, change in eye color, change in vision, discharge from eye(s), double vision, erythema, eye pain, loss of vision or other HEENT: Denies abnormal hearing, dysphagia, ear pain, epistaxis, headache(s), hearing loss, nasal congestion, nasal discharge, post nasal drip, sinus pressure, sore throat or other Cardiovascular: Denies chest pain or palpitations. Denies dyspnea on exertion, orthopnea and paroxysmal nocturnal dyspnea Respiratory/Chest: Denies cough, excessive phlegm production, shortness of breath with exertion and wheezing Gastrointestinal: Denies abdominal pain, coffee ground emesis, constipation, diarrhea, dyspepsia, hematemesis, hematochezia, loose stools, melena, nausea, vomiting or other Genitourinary: Denies burning urination, difficulty urinating, dysuria, hematuria, nocturia, urinary frequency, urinary hesitancy, urinary incontinence, urinary urgency or other Musculoskeletal: Denies arthralgias, back pain, joint pain, joint stiffness, joint swelling, myalgias, neck pain or other Neurologic: Denies abnormal gait, abnormal speech, confusion, disequilibrium, dizziness, focal weakness, headache(s), numbness, paresthesias, seizure-like activity, seizures, syncope, tingling, tremor(s) or other Psychiatric: Denies anxiety, depression, homicidal ideation, suicidal ideation or other Endocrinology: Denies change in body appearance, cold intolerance, excessive sweating, heat intolerance, polydipsia, polyuria or other Hematologic/Lymphatic: Denies anemia, easy bleeding, easy bruising, lymphadenopathy or other Integumentary: Denies rashes Allergic/Immunologic: Denies rhinitis, hives, eczema, asthma or other Vital Signs Vital Signs Vital Signs: 06/04/21 17:33 06/04/21 17:38 06/04/21 17:53 Temperature 99.7 F H Temperature Source Temporal Pulse Rate 101 H Respiratory Rate 16 Respiratory Effort Normal Short of Breath Respiratory Pattern Normal Blood Pressure 250/111 H 183/136 H Blood Pressure Mean 157 151 Pulse Ox 99 Oxygen Delivery Method Room Air 06/04/21 18:10 06/04/21 18:12 06/04/21 18:20 Temperature Temperature Source Pulse Rate 91 Respiratory Rate 24 H Respiratory Effort Respiratory Pattern Blood Pressure 218/100 H 213/141 H Blood Pressure Mean 139 165 Pulse Ox 96 Oxygen Delivery Method Room Air Room Air 06/04/21 19:00 06/04/21 19:39 06/04/21 20:03 Temperature Temperature Source Pulse Rate 101 H 98 104 H Respiratory Rate 22 H 18 Respiratory Effort Respiratory Pattern Blood Pressure 233/120 H 232/106 H 241/117 H Blood Pressure Mean 157 148 158 Pulse Ox 95 96 Oxygen Delivery Method Room Air Room Air 06/04/21 20:10 06/04/21 21:48 06/04/21 22:20 Temperature Temperature Source Pulse Rate 94 99 100 Respiratory Rate 18 Respiratory Effort Respiratory Pattern Blood Pressure 207/101 H 183/110 H 202/95 H Blood Pressure Mean 136 134 130 Pulse Ox 95 Oxygen Delivery Method Room Air 06/04/21 22:29 Temperature Temperature Source Pulse Rate 100 Respiratory Rate 14 Respiratory Effort Respiratory Pattern Blood Pressure 187/122 H Blood Pressure Mean 143 Pulse Ox 96 Oxygen Delivery Method Room Air Weight Weight: 63.503 kg Body Mass Index (BMI) 25.6 Physical Exam Narrative Physical exam: General: Elderly female moving legs repeatedly in bed Head: Normocephalic, atraumatic, no tenderness Eyes: PERRLA, EOMI ENT, no trauma, moist mucous membranes, no rhinorrhea Neck: Nontender, full range of motion, no spinal tenderness, deformities, step- off CVS: Tachycardia. S1-S2 present. No murmur, gallop or rub. Respiratory : clear to auscultation bilaterally, chest wall nontender, no wheezing Abdomen: Soft, nontender, nondistended, normal bowel sounds, no masses : Deferred Back: Nontender, no CVA tenderness, no midline spinal tenderness, deformities, step-offs Extremities: Nontender full range of motion, no trauma Skin: Normal color, no trauma, abrasions Neuro: Alert, oriented, cranial nerves II through XII grossly intact. Psychiatry: Normal mood. Normal affect. Not depressed. Not anxious. Results Lab / Micro Data Result Diagrams: 06/05/21 03:30 06/05/21 03:30 Labs: Laboratory Results - last 24 hr 06/04/21 17:52: WBC 7.6, RBC 4.60, Hgb 13.6, Hct 41.6, MCV 90.4, MCH 29.6, MCHC 32.7, RDW Std Deviation 40.3, RDW Coeff of Aly 12.2, Plt Count 424, MPV 9.2, Immature Gran % (Auto) 0.300, Neut % (Auto) 55.9, Lymph % (Auto) 36.6, [place] % (Auto) 5.0, Eos % (Auto) 1.7, Baso % (Auto) 0.5, Absolute Neuts (auto) 4.3, Abso lute Lymphs (auto) 2.79, Nucleated RBC % 0 06/04/21 17:52: Sodium 137, Potassium 3.8, Chloride 104, Carbon Dioxide 27.0, Anion Gap 6, BUN 15, Creatinine 0.75, Estim Creat Clear Calc 35.49, Est GFR (MDRD) Af Amer 96, Est GFR (MDRD) Non-Af 79, BUN/Creatinine Ratio 20.0, Glucose 113 H, Calcium 9.7, Troponin I High Sens 6 06/04/21 19:53: Troponin I High Sens 10 Radiology Impression Chest X-Ray 06/04/21 17:56 IMPRESSION: Normal x-ray examination of the chest. Electronically Signed: Nina Ramirez MD at 19:21 EDT Tel , Service support , Brain CT 06/04/21 17:59 IMPRESSION: 1. No acute abnormality. 2. Stable since prior mild chronic white matter ischemic change. Electronically Signed: Nina Ramirez MD at 19:15 EDT Tel , Service support , Chest/Abdomen/Pelvis CTA 06/04/21 19:58 IMPRESSION: Mild bilateral hydroureteronephrosis with distended bladder. Consider bladder outlet obstruction. Postsurgical changes of the lumbar spine with multilevel spondylolisthesis. Electronically Signed: Bryson Samuels MD at 21:50 EDT Tel , Service support , Assessment & Plan Assessment/Plan (1) Hypertensive emergency: (2) Increased urinary frequency: (3) Restless leg syndrome: PLAN: Hypertensive emergency With systolic blood pressure of more than 180; and diastolic blood pressure of more than 120 and with headaches; chest pain. EKG reviewed showed sinus tachycardia. High sensitivity Troponin is negative. Will trend troponin. Continue patient home blood pressure medication. Will start patient on nicardipine drip and admit to intensive care unit. Extrusion Manager consult. Cardiology consult Increased urinary frequency CTA showed mild bilateral hydroureteronephrosis with distended bladder. Patient with increased frequency of urination while at the emergency department. Will get urinalysis with culture. DVT prophylaxis Subcutaneous Lovenox ordered Charges/Coding Visit Charges Inpatient E&M: 20557 Init Hosp L3
--- NOTE | 2021-06-04 23:52 | ED.RN ---
Report given to HERBIE Ibarra in ICU.
[2021-06-05] VITALS (18 sets, daily range): BP systolic 124–205; BP diastolic 56–102; PULSE 88–101; RESP 16–20; TEMP 36.1–36.9; O2SAT 95–98; BMI 25.6
[2021-06-05] MEDS: oxyCODONE 5 MG Tablet 10 MG PO ×2 (00:42→08:42)
[2021-06-05 01:56] LABS: Mucous, Urine 0 SEEN /hpf (<or=2+); White Blood Cells 0 SEEN /hpf (0-5)
[2021-06-05 02:26] LABS: Color, Urine Yellow (Yellow); Glucose, Dipstick Normal (Normal); Ketone-Dipstick Negative (Negative); Leukocyte Esterase-Dipstick Negative /ul (Negative); Nitrite-Dipstick Negative (Negative); Occult Blood-Urine 150 /ul (Negative); Protein-Dipstick 100 mg/dl (Negative); Urine Bilirubin Dipstick Negative (Negative); Urine Clarity Clear (Clear); Urine Urobilinogen Normal (Normal)
[2021-06-05 02:42] LABS: Bacteria 1+ /hpf (None Seen); Red Blood Cells-Urine 10-25 SEEN /hpf (0-5); Squamous Epithelial Cells - UA 0-5 SEEN /hpf (5-10)
[2021-06-05 04:07] LABS: Absolute Lymphocyte Count 2.44 X10^3/uL (0.83-4.51); Absolute Neutrophil Count 8.4 X10^3/uL (2.0-7.7); Basophil# 0.04 X10^3/uL; Basophil% 0.3 % (0-1); Eosinophil# 0.02 X10^3/uL; Eosinophils% 0.2 % (0-5); Hemoglobin 12.7 g/dL (12.0-15.0); Lymphocyte # 2.44 X10^3/ul (0.83-4.51); Lymphocyte % 21.2 % (19-41); Mean Corp Hgb Conc 32.6 g/dL (32-36); Mean Corpuscular Hgb 29.6 pg (27.0-32.0); Mean Corpuscular Volume 90.9 fL (81-99); Mean Platelet Vol. 9.2 fl (6.2-12.0); Monocyte# 0.58 X10^3/uL; NRBC Flagged by Analyzer 0 % (0-5); Neutrophil # 8.37 X10^3/uL (2.7-7.7); Platelet Count 415 K/mm3 (150-450); RBC Distribution Width CV 12.3 % (11.6-14.6); RBC Distribution Width SD 40.9 fl (35.1-43.9); Red Blood Count 4.29 M/mm3 (4.2-5.4); White Blood Count 11.5 K/mm3 (4.4-11.0)
[2021-06-05 04:18] LABS: Anion Gap 9 (5-15); BUN 15 mg/dL (7-18); BUN/Creat Ratio 16.2 RATIO (10-20); Chloride 101 mmol/L (98-107); Creatinine, Serum 0.92 mg/dL (0.55-1.02); EST Glomerular Filtration Rate 62 mL/min (>60); Est Glom Filt Rate - Afr Amer 75 mL/min (>60); Estimated Creatinine Clearance 38.57 ml/min; Glucose 133 mg/dL (74-106); Potassium 3.6 mmol/L (3.5-5.1); Sodium Level 137 mmol/L (136-145)
[2021-06-05 04:31] LABS: Troponin-I HS 13 pg/mL (3.0-54.0)
--- NOTE | 2021-06-05 07:43 | PN.HOSP_ITS ---
Objective Data Objective Data Vital Signs: Vital Signs Temp Pulse Resp BP Pulse Ox 97.2 F L 92 16 140/66 H 97 06/05/21 04:00 06/05/21 07:19 06/05/21 07:00 06/05/21 07:00 06/05/21 07:00 Oxygen Delivery Method Room Air Weight: 139 lb 15.896 oz Body Mass Index (BMI) 25.6 Intake & Output: Intake and Output for Last 24 Hours 06/03/21 06/04/21 06/05/21 23:59 23:59 23:59 Intake Total 200.42 / 200.42 Output Total 850 / 850 Balance -649.58 / -649.58 Lab / Micro Data Result Diagrams: 06/05/21 03:30 06/05/21 03:30 Labs: Laboratory Results - last 24 hr 06/04/21 01:37: Urine Color Yellow, Urine Clarity Clear, Urine pH 8.0, Ur Specific [place] 1.010, Urine Protein 100 H, Urine Glucose (UA) Normal, Urine Ketones Negative, Urine Occult Blood 150 H, Urine Nitrite Negative, Urine Biliru bin Negative, Urine Urobilinogen Normal, Ur Leukocyte Esterase Negative, Urine RBC 10-25 SEEN, Urine WBC 0 SEEN, Ur Squamous Epith Cells 0-5 SEEN, Urine Bacteria 1+, Urine Mucus 0 SEEN 06/04/21 17:52: WBC 7.6, RBC 4.60, Hgb 13.6, Hct 41.6, MCV 90.4, MCH 29.6, MCHC 32.7, RDW Std Deviation 40.3, RDW Coeff of Aly 12.2, Plt Count 424, MPV 9.2, Immature Gran % (Auto) 0.300, Neut % (Auto) 55.9, Lymph % (Auto) 36.6, [place] % (Auto) 5.0, Eos % (Auto) 1.7, Baso % (Auto) 0.5, Absolute Neuts (auto) 4.3, Absolute Lymphs (auto) 2.79, Nucleated RBC % 0 06/04/21 17:52: Sodium 137, Potassium 3.8, Chloride 104, Carbon Dioxide 27.0, Anion Gap 6, BUN 15, Creatinine 0.75, Estim Creat Clear Calc 35.49, Est GFR (MDRD) Af Amer 96, Est GFR (MDRD) Non-Af 79, BUN/Creatinine Ratio 20.0, Glucose 113 H, Calcium 9.7, Troponin I High Sens 6 06/04/21 19:53: Troponin I High Sens 10 06/05/21 03:30: WBC 11.5 H, RBC 4.29, Hgb 12.7, Hct 39.0, MCV 90.9, MCH 29.6, MCHC 32.6, RDW Std Deviation 40.9, RDW Coeff of Aly 12.3, Plt Count 415, MPV 9.2, Immature Gran % (Auto) 0.300, Neut % (Auto) 73.0 H, Lymph % (Auto) 21.2, [place] % (Auto) 5.0, Eos % (Auto) 0.2, Baso % (Auto) 0.3, Absolute Neuts (auto) 8.4 H, Absolute Lymphs (auto) 2.44, Nucleated RBC % 0 06/05/21 03:30: Sodium 137, Potassium 3.6, Chloride 101, Carbon Dioxide 27.0, Anion Gap 9, BUN 15, Creatinine 0.92, Estim Creat Clear Calc 38.57, Est GFR (MDRD) Af Amer 75, Est GFR (MDRD) Non-Af 62, BUN/Creatinine Ratio 16.2, Glucose 133 H, Calcium 9.0 06/05/21 03:30: Troponin I High Sens 13 Radiography Diagnostic Testing: Radiology Impression Chest X-Ray 06/04/21 17:56 IMPRESSION: Normal x-ray examination of the chest. Electronically Signed: Nina Ramirez MD at 19:21 EDT Tel , Service support , Brain CT 06/04/21 17:59 IMPRESSION: 1. No acute abnormality. 2. Stable since prior mild chronic white matter ischemic change. Electronically Signed: Nina Ramirez MD at 19:15 EDT Tel , Service support , Chest/Abdomen/Pelvis CTA 06/04/21 19:58 IMPRESSION: Mild bilateral hydroureteronephrosis with distended bladder. Consider bladder outlet obstruction. Postsurgical changes of the lumbar spine with multilevel spondylolisthesis. Electronically Signed: Bryson Samuels MD at 21:50 EDT Tel , Service support , Assessment & Plan Assessment/Plan (1) Hypertensive emergency: (2) Increased urinary frequency: (3) Restless leg syndrome: PLAN: Hypertensive emergency With systolic blood pressure of more than 180; and diastolic blood pressure of more than 120 and with headaches; chest pain. EKG reviewed showed sinus tachycardia. High sensitivity Troponin is negative. Will trend troponin. Continue patient home blood pressure medication. Will start patient on nicardipine drip and admit to intensive care unit. Associate Agent Insurance Sales consult. Cardiology consult Increased urinary frequency CTA showed mild bilateral hydroureteronephrosis with distended bladder. Patient with increased frequency of urination while at the emergency department. Will get urinalysis with culture. DVT prophylaxis Subcutaneous Lovenox ordered
[2021-06-05] MEDS: Carvedilol 12.5 MG Tablet PO (08:34)
[2021-06-05] MEDS: Pantoprazole Sodium 40 MG Tablet PO (08:34)
[2021-06-05] MEDS: Aspirin 81 MG TAB.CHEW PO (08:34)
[2021-06-05] MEDS: amLODIPine 5 MG Tablet PO (08:34)
[2021-06-05] MEDS: Lisinopril 5 MG Tablet PO (08:34)
[2021-06-05] MEDS: Pramipexole Di-HCl 0.5 MG Tablet PO (08:34)
--- NOTE | 2021-06-05 09:13 | PCM.DC ---
Discharge Instructions Diet Discharge Diet: Low fat / Low cholesterol and 2000 mg Sodium Diet Activity Discharge Activity: Return to Normal Activity Weight Bearing Status: Weight bearing as tolerated Dressing / Incision Call your doctor if you observe: Fever of 101 or Higher, Coldness, Increased Pain, Numbness or Tingling, Change in Color, Inability to urinate, Inability to have a bowel movement, Using more than 1 pad per hour, Shortness of breath, Dizziness, Fainting spells, Swelling in the ankles, Chest pain, Prolonged hiccupping, Calf discomfort and Uncontrolled pain Follow Up Care Test Results: Test results from this visit will be discussed in further detail at your follow-up appointment, if applicable. Discharge Plan Admission Admit Date/Time: 06/04/21 22:45 Primary Reason for Your Visit: hypertensive emergency Attending Provider: Gallito Ortega Primary Care Provider: Milton Kang Instructions Additional Instructions / Restrictions: Advised Home BP monitoring Discharge Orders/Prescriptions Prescriptions: New tamsulosin [Flomax] 0.4 mg capsule 0.4 mg PO QHS Qty: 30 RF: 0 Continued oxycodone 10 mg tablet 10 mg PO Q8H PRN (Reason: pain) RF: 0 acetaminophen [Tylenol Extra Strength] 500 mg tablet 1,000 mg PO Q8H RF: 0 fluticasone propionate [Flonase Allergy Relief] 50 mcg/actuation spray,suspension 2 spray INTRANASAL DAILY RF: 0 nitroglycerin 0.4 mg tablet, sublingual 0.4 mg SUBLINGUAL Q5-15M PRN (Reason: chest pain) Qty: 25 RF: 3 pantoprazole 40 MG tablet 40 mg PO DAILY RF: 0 aspirin 81 MG tablet,chewable 81 mg PO DAILY@0800 RF: 0 pramipexole 0.5 MG tablet 0.5 mg PO BID RF: 0 ondansetron HCl 4 MG tablet 4 mg PO Q8H PRN (Reason: Nausea) Qty: 20 RF: 0 carvedilol 12.5 mg tablet 12.5 mg PO BID Qty: 60 RF: 11 clopidogrel 75 mg tablet 75 mg PO DAILY Qty: 30 RF: 11 Changed amlodipine [Norvasc] 5 mg tablet 10 mg PO DAILY Qty: 30 RF: 6 lisinopril 5 mg tablet 10 mg PO BID Qty: 0 RF: 0 Referrals / Follow Up: Milton Kang MD [Primary Care Provider] - Within 2 Weeks NikkiSkyler MD [STAFF PHYSICIAN] - Within 2 Weeks (hypertensive emergency ) Disposition Disposition (needs filled in before D/C Order can be placed): Home, Self Care
--- NOTE | 2021-06-05 09:19 | DS.PCM_ITS ---
Providers Date of Admission: 06/04/21 Primary Care Physician: Dr. Milton Kang MD Reason For Visit: HYPERTENSIVE EMERGENCY Diagnosis Discharge Diagnosis (1) Hypertensive emergency: Status: Acute Code(s): I16.1 - Hypertensive emergency (2) Increased urinary frequency: Status: Acute Code(s): R35.0 - Frequency of micturition (3) Restless leg syndrome: Status: Chronic Code(s): G25.81 - Restless legs syndrome Medications at Discharge Home Medications pantoprazole 40 mg PO DAILY 06/20/17 aspirin 81 mg PO DAILY@0800 05/05/18 acetaminophen 500 mg tablet 1,000 mg PO Q8H 01/27/20 fluticasone propionate 50 mcg/actuation nasal spray,suspension 2 spray INTRANASAL DAILY 01/27/20 oxycodone 10 mg tablet 10 mg PO Q8H PRN 01/27/20 pramipexole 0.5 mg PO BID 04/08/20 ondansetron HCl 4 mg PO Q8H PRN #20 tab 09/05/20 nitroglycerin 0.4 mg sublingual tablet 0.4 mg SUBLINGUAL Q5-15M PRN #25 tab 09/13/20 carvedilol 12.5 mg tablet 12.5 mg PO BID #60 tab 11/15/20 clopidogrel 75 mg tablet 75 mg PO DAILY #30 tab 05/22/21 amlodipine [Norvasc] 10 mg PO DAILY #30 tablet 06/05/21 lisinopril 10 mg PO BID #0 tablet 06/05/21 tamsulosin [Flomax] 0.4 mg PO QHS #30 cap 06/05/21 Hospital Course Summary of Care Provided Hospital Course: This is a 80-year-old female with history of hypertension, coronary artery disease status post stents, CVA was admitted with high blood pressure systolic 244 from ER. Patient also had headache. Denies chest pain or shortness of breath or tightness in the chest. No blurry vision. Patient was admitted in ICU on IV nicardipine drip. Twelve-lead EKG shows sinus tachycardia. Isolated troponins were negative. I discussed with university demonstrator Dr. Casarez. He said patient follows with Dr. Jordan. Patient had recent stress test in September 2020 and 2D echo in December 2019 and more suggestive of chronic diastolic heart failure. Antihypertensive medications were increased, lisinopril 20 mg twice daily and amlodipine 10 mg daily. Carvedilol continued at 12.5 mg twice daily. Chest x-ray, CT brain were reported normal. Chest abdomen pelvis CT shows mild bilateral hydroureteronephrosis with distended bladder. No particular obstructive lesion found including stone. Patient given prescription for Flomax 0.4 mg at night and advised to monitor urine flow. Patient was advised to follow-up with urologist, Dr Wall with referral from PCP if further concern of bladder outlet obstruction symptoms does not improve. Discharge medication reconciliation done. Discharge follow-up instructions completed. Discharge process discussed with the patient and all questions were answered to patient's satisfaction. Total time spent, exact 35 minutes on discharge meds reconciliation, examination, coordination of care with nurses and ancillary staff, review of imaging and blood test and discussion with the patient on follow-up instructions. Clinical Impression(s) from Imaging Studies Chest/Abdomen/Pelvis CTA 06/04/21 19:58 IMPRESSION: Mild bilateral hydroureteronephrosis with distended bladder. Consider bladder outlet obstruction. Postsurgical changes of the lumbar spine with multilevel spondylolisthesis. Electronically Signed: Bryson Samuels MD at 21:50 EDT Tel , Service support , Physical Exam Narrative Patient denies chest pain, pressure or tightness. No shortness of breath. Patient had mild headache which is resolved. Blood pressure in systolic 140s. Nicardipine drip is off since 2?3 AM. General: Alert, Oriented x3, Cooperative HEENT: Atraumatic, PERRLA, EOMI, Normocephalic Oral: No Gingival or Mucosal Lesions/ Ulcerations Neck: Supple, No JVD, Negative Carotid Bruits Lungs: Air entry diminished in bilateral lung bases. No crepitation/rhonchi Cardiovascular: Sinus rhythm, normal S1, Normal S2, No murmurs Abdomen: Bowel Sounds Present, Soft, Non Tender, Non-Distended : No renal angle tenderness. No suprapubic tenderness. Extremities: No edema, Capillary Refill Less than 3 Seconds Skin: No rashes, No breakdown Musculoskeletal: No Tenderness to Palpation of Joints or Extremities Neurological: Cranial nerves II-XII grossly intact, DTR 2+/4 and Symmetrical, Neuro grossly intact Psych/Mental Status: Normal Affect, Appropriate. Weight / BMI Weight Weight: 139 lb 15.896 oz Body Mass Index (BMI) 25.6 ABG / Lab / Microbiology Data Result Diagrams: 06/05/21 03:30 06/05/21 03:30 Laboratory: Laboratory Results - last 24 hr 06/04/21 01:37: Urine Color Yellow, Urine Clarity Clear, Urine pH 8.0, Ur Specific [place] 1.010, Urine Protein 100 H, Urine Glucose (UA) Normal, Urine Ketones Negative, Urine Occult Blood 150 H, Urine Nitrite Negative, Urine Bilirubin Negative, Urine Urobilinogen Normal, Ur Leukocyte Esterase Negative, Urine RBC 10-25 SEEN, Urine WBC 0 SEEN, Ur Squamous Epith Cells 0-5 SEEN, Urine Bacteria 1+, Urine Mucus 0 SEEN 06/04/21 17:52: WBC 7.6, RBC 4.60, Hgb 13.6, Hct 41.6, MCV 90.4, MCH 29.6, MCHC 32.7, RDW Std Deviation 40.3, RDW Coeff of Aly 12.2, Plt Count 424, MPV 9.2, Immature Gran % (Auto) 0.300, Neut % (Auto) 55.9, Lymph % (Auto) 36.6, [place] % (Auto) 5.0, Eos % (Auto) 1.7, Baso % (Auto) 0.5, Absolute Neuts (auto) 4.3, Absolute Lymphs (auto) 2.79, Nucleated RBC % 0 06/04/21 17:52: Sodium 137, Potassium 3.8, Chloride 104, Carbon Dioxide 27.0, Anion Gap 6, BUN 15, Creatinine 0.75, Estim Creat Clear Calc 35.49, Est GFR (MDRD) Af Amer 96, Est GFR (MDRD) Non-Af 79, BUN/Creatinine Ratio 20.0, Glucose 113 H, Calcium 9.7, Troponin I High Sens 6 06/04/21 19:53: Troponin I High Sens 10 06/05/21 03:30: WBC 11.5 H, RBC 4.29, Hgb 12.7, Hct 39.0, MCV 90.9, MCH 29.6, MCHC 32.6, RDW Std Deviation 40.9, RDW Coeff of Aly 12.3, Plt Count 415, MPV 9.2, Immature Gran % (Auto) 0.300, Neut % (Auto) 73.0 H, Lymph % (Auto) 21.2, [place] % (Auto) 5.0, Eos % (Auto) 0.2, Baso % (Auto) 0.3, Absolute Neuts (auto) 8.4 H, Absolute Lymphs (auto) 2.44, Nucleated RBC % 0 06/05/21 03:30: Sodium 137, Potassium 3.6, Chloride 101, Carbon Dioxide 27.0, Anion Gap 9, BUN 15, Creatinine 0.92, Estim Creat Clear Calc 38.57, Est GFR (MDRD) Af Amer 75, Est GFR (MDRD) Non-Af 62, BUN/Creatinine Ratio 16.2, Glucose 133 H, Calcium 9.0 06/05/21 03:30: Troponin I High Sens 13 Radiography Diagnostic Testing: Radiology Impression Chest X-Ray 06/04/21 17:56 IMPRESSION: Normal x-ray examination of the chest. Electronically Signed: Nina Ramirez MD at 19:21 EDT Tel , Service support , Brain CT 06/04/21 17:59 IMPRESSION: 1. No acute abnormality. 2. Stable since prior mild chronic white matter ischemic change. Electronically Signed: Nina Ramirez MD at 19:15 EDT Tel , Service support , Chest/Abdomen/Pelvis CTA 06/04/21 19:58 IMPRESSION: Mild bilateral hydroureteronephrosis with distended bladder. Consider bladder outlet obstruction. Postsurgical changes of the lumbar spine with multilevel spondylolisthesis. Electronically Signed: Bryson Samuels MD at 21:50 EDT Tel , Service support , D/C Instructions Discharge Diet: Low fat / Low cholesterol and 2000 mg Sodium Diet Weight Bearing Status: Weight bearing as tolerated Call your doctor if you observe: Fever of 101 or Higher, Coldness, Increased Pain, Numbness or Tingling, Change in Color, Inability to urinate, Inability to have a bowel movement, Using more than 1 pad per hour, Shortness of breath, Dizziness, Fainting spells, Swelling in the ankles, Chest pain, Prolonged hiccupping, Calf discomfort and Uncontrolled pain Meaningful Use Info Meaningful Use Diagnoses (Choose all that apply): None applicable Discharge Plan Admission Admit Date/Time: 06/04/21 22:45 Primary Reason for Your Visit: hypertensive emergency Attending Provider: Gallito Ortega Primary Care Provider: Milton Kang Instructions Additional Instructions / Restrictions: Advised Home BP monitoring Discharge Orders/Prescriptions Prescriptions: New tamsulosin [Flomax] 0.4 mg capsule 0.4 mg PO QHS Qty: 30 RF: 0 Continued oxycodone 10 mg tablet 10 mg PO Q8H PRN (Reason: pain) RF: 0 acetaminophen [Tylenol Extra Strength] 500 mg tablet 1,000 mg PO Q8H RF: 0 fluticasone propionate [Flonase Allergy Relief] 50 mcg/actuation spray,suspension 2 spray INTRANASAL DAILY RF: 0 nitroglycerin 0.4 mg tablet, sublingual 0.4 mg SUBLINGUAL Q5-15M PRN (Reason: chest pain) Qty: 25 RF: 3 pantoprazole 40 MG tablet 40 mg PO DAILY RF: 0 aspirin 81 MG tablet,chewable 81 mg PO DAILY@0800 RF: 0 pramipexole 0.5 MG tablet 0.5 mg PO BID RF: 0 ondansetron HCl 4 MG tablet 4 mg PO Q8H PRN (Reason: Nausea) Qty: 20 RF: 0 carvedilol 12.5 mg tablet 12.5 mg PO BID Qty: 60 RF: 11 clopidogrel 75 mg tablet 75 mg PO DAILY Qty: 30 RF: 11 Changed amlodipine [Norvasc] 5 mg tablet 10 mg PO DAILY Qty: 30 RF: 6 lisinopril 5 mg tablet 10 mg PO BID Qty: 0 RF: 0 Referrals / Follow Up: Skyler Joradn MD [STAFF PHYSICIAN] - Within 2 Weeks (hypertensive emergency ) Milton Kang MD [Primary Care Provider] - Within 2 Weeks Anabel Wall MD [STAFF PHYSICIAN] - Within 1 Month Disposition Disposition (needs filled in before D/C Order can be placed): Home, Self Care
[2021-06-05] MEDS: Clopidogrel Bisulfate 75 MG Tablet PO (09:30)
--- NOTE | 2021-06-05 09:30 | CASEMGMT ---
RN CM Face to Face with patient for initial transition planning/care coordination assessment. RN CM introduced self and role at [facility]. Patient lying in bed, alert and oriented. Patient willing to participate in assessment and is able to answer all questions appropriately. Care providers, pharmacy, and demographics verified. Patient wishes to discharge home, denies need for home health at this time. Patient states she has no further needs or concerns at this time. CM to follow for discharge planning needs that may arise. PCP: [facility]: [employer] predatory [employer] [facility]acy[facility] Insurance: shea PÉREZ Prescription Benefit: yes Living Will/HPOA: none, requested information, SW updated LNOK: Living Arrangements: Patient lives with in a one story with 3 steps and railing to enter the home. Patient states she is independent at home. Transportation: DME/HHC: Paitent states she has built in shower seat, raised toielt, rollator, wheelchair at home. Patient denies previous HHC or SNF. Disposition Plan: Tabitha BORREGO, RN, CM
--- NOTE | 2021-06-05 10:23 | CASEMGMT ---
As per CM, pt would like information on LW/POA forms. SW met w/pt, reviewed LW/POA forms. Pt states her may also want to complete the forms. SW gave pt the blank forms for both pt and . SW gave her the number to the SW department to call once she is feeling better, to make an appointment to complete the forms. Pt thanked SW for reviewing the forms with her. Physician also came in while SW speaking w/pt, was able to confirm w/pt what the physician had said in regard to changes in her medications. JEANNE remains available for any additional social service discharge needs. HUA Duran
== END 2021-06-05 12:00 | disposition home or self-care (01) | DRG 305 ==
LOC: ED 23:01 → ICU 06-05 07:23
PROVIDERS: Admitting Provider Hospitalist; Emergency Provider Student in an Organized Health Care Education/Training Program; PCP Family Medicine; Visit Provider Internal Medicine
DX: I16.1 Hypertensive emergency (principal); R35.0 Frequency of micturition; N13.30 Unspecified hydronephrosis; G25.81 Restless legs syndrome; I10 Essential (primary) hypertension; I25.10 Atherosclerotic heart disease of native coronary artery without angina pectoris; E78.5 Hyperlipidemia, unspecified; I25.2 Old myocardial infarction; Z79.899 Other long term (current) drug therapy; Z79.82 Long term (current) use of aspirin; Z79.51 Long term (current) use of inhaled steroids; Z79.02 Long term (current) use of antithrombotics/antiplatelets
CPT/HCPCS: 70450; 71045; 71275; 74174; 80048; 81001; 84484; 85025; 87086; 93005; 96365; 96366; 96375; 96376; 97802; 99218; 99285; J7040; J7050; Q9967; A4216; G0378